=== PATIENT | male | born 1955 | race Caucasian/White ===

== ENCOUNTER → 2017-11-18 08:31 | Outpatient (CLI) | payer BC, SELFPAY | PROVIDERS: Family Provider Family Medicine; PCP Family Medicine; Visit Provider Family Medicine | DX: I25.10 Atherosclerotic heart disease of native coronary artery without angina pectoris (principal) | CPT/HCPCS: 93017 ==

== ENCOUNTER 2018-01-06 21:13 | Emergency (ER) | payer BC, SELFPAY ==
[2018-01-06 21:14] VITALS: BP 188/96; PULSE 85; RESP 20; TEMP 37.1; O2SAT 98; BMI 25.9
--- NOTE | 2018-01-06 21:26 | CT_ITS ---
CT abdomen pelvis wo con Ordering Physician: Jeovany Ventura MD Patient Age: 62 years: Male HISTORY: ITS.REASON: pain left lower quadrant pain 2 weeks. HISTORY of kidney stones. TECHNIQUE: Helical CT scans abdomen pelvis with no oral nor IV contrast utilized. COMPARISON :July 2017 & January 2014 FINDINGS Lung bases clear. Abdomen./Pelvis. Lack of oral and IV contrast decrease sensitivity Liver. Mild fatty changes.,. Spleen, pancreas satisfactory. Gallbladder. No calcified gallstones. No ductal dilatation Stable right adrenal nodule 16 mm. It measures -2 Hounsfield unit density. Others compatible with a benign impression adenoma Left obstructive uropathy. High-grade. Stranding about the left kidney complex the high-grade obstruction and pelvicalyceal backflow most likely. The Moderate/generous hydronephrosis is more pronounced than on July 2017 CT study, with dilatation of proximal left ureter down to the series of multiple prominent left ureter calculi. Also new calculi at the left renal pelvis region as well..-Note 7 mm calculus as well as a elongated 12 x 3 mm calculus at the left renal pelvis. Continuing inferiorly, the Dilated left ureter contains a series of calculi.-: The most superior measuring 7.3 mm. The next measuring 8.7 millimeters,. The third calculus measuring 7.1 mm. The largest calculus is the most inferior of this series a calculi. It is projected over the left sacrum measures just less than 9 mm AP x 6 mm Transverse. The the ureter distal this point is not as dilated. Left kidney contains numerous residual nonobstructive calculi within the calyces. The largest calculi complex measuring 16mm x 10 mm at the lower pole calyx. Numerous other calculi measuring up to 7-8 mm are seen elsewhere at left kidney. Right kidney also contains numerous punctate calculi of tend to be overall slightly smaller, measuring 4-MM up to 6 mm.. These appear similar to the previous study. No obstructive uropathy on the right. Pelvis: Bladder is unremarkable. Phlebolith left pelvic basin axial image 106. Moderate size prostate Large bowel. Moderate stool seen throughout colon with numerous diverticuli most evident at sigmoid colon. Appendix appears normal in size with some upper normal density centrally. IMPRESSION========= 1. High-grade obstructive uropathy on the left. Generous LEFT hydronephrosis & dilatation of proximal left ureter due to series of large left ureteral calcul ,. At least 4 large left ureteral calculi: these measure 7- 8mm size, with largest most inferior calculus measuring nearly 9 mm diameter. 2. Bilateral nephrolithiasis: LEFT KIDNEY with numerous calculi, including large stone complex lower pole measuring up to 16 mm maximally. Numerous punctate calculi also again seen at RIGHT KIDNEY. Which tend to be smaller on the right measuring 4-6 mm size. 3. Small right adrenal adenoma. Stable. 4. Diverticulosis of left colon and sigmoid colon. No diverticulitis.. Fatty infiltration liver
--- NOTE | 2018-01-06 22:02 | [facility].EDUROGM ---
ED Disposition Clinical Impression: Renal colic on left side Disposition: Home, Self-Care Condition on Discharge: Good Instructions: DI for Kidney Stones Additional Instructions: fluids and see pcp for follow up Referrals: Sukhdeep Ramon MD [Primary Care Provider] - - Critical Care Critical Care Time: No Attestation: On 01/06/18, the high probability of a clinically significant, sudden or life threatening deterioration of the following system(s) required my full and direct attention, intervention and personal management. The time I documented below is in addition to time spent performing reported procedures but includes the following listed in this critical care notation. Medical Decision Making - Medical Records Medical records reviewed: Yes: I reviewed the patient's medical records. Vital Signs: 01/06/18 21:14 01/06/18 22:11 Temperature 98.8 F Temperature Source Oral Pulse Rate [Right Brachial] 85 77 Respiratory Rate 20 12 Blood Pressure [Right Arm] 188/96 145/77 Blood Pressure Mean [Right Arm] 126 99 Blood Pressure Source [Right Arm] Automatic Cuff Automatic Cuff Blood Pressure Position [Right Arm] Sitting Sitting 02 Sat by Pulse Oximetry 98 96 Oxygen Delivery Method Room Air Room Air - Lab Data Lab results reviewed: Yes: I reviewed the patient's lab results. Orders (Tests/Meds): ED MEDICATIONS Discontinued Medications Generic Name Dose Route Start Last Admin Trade Name Freq PRN Reason Stop Dose Admin Sodium Chloride 1,000 mls @ 999 mls/hr 01/06/18 21:30 01/06/18 22:05 Sod Chlor 0.9% 1000ml Bag IV 01/06/18 22:30 999 mls/hr .Q1H1M GRACIELA Administration Ketorolac Tromethamine 30 mg 01/06/18 21:25 01/06/18 22:08 Toradol 30mg/Ml Vial IV 01/06/18 21:26 30 mg ONCE ONE Administration Morphine Sulfate 4 mg 01/06/18 22:02 01/06/18 22:05 Morphine 4mg/Ml Syringe IV 01/06/18 22:03 4 mg ONCE ONE Administration Ondansetron HCl 4 mg 01/06/18 21:25 01/06/18 22:10 Zofran 4mg/2ml Vial IV 01/06/18 21:26 4 mg ONCE ONE Administration ORDERS Category Date Time Status CT abdomen pelvis wo con Stat Cat Scan 01/06/18 21:26 Taken - CT Data CT Scan: Abdomen, Pelvis Time Received: 22:[address] Reviewed: Yes: I have viewed the radiologist's interpretation Preliminary Findings: Abnormal (lt renal stones ) - Cesar Inquiry Pt receiving controlled substance: No Male Urogenital HPI - General Chief complaint: Abdominal Pain Stated complaint: kidney stone Time Seen by Provider: 01/06/18 22:02 Mode of Arrival: Ambulatory Source of Information: Patient, Relative, Medical Record Limitations: No Limitations Description of Symptoms (Recalled from ER Triage Doc. by RN): Hx Kidney Stones, has been in pain for 2 weeks, worsening for the last 3 days - History of Present Illness HPI Narrative: pt with hx of kidney stones and presents with ongoing lt flank pain which has not responded to op rx MD Complaint: other (flank pain) Onset (ago): day(s) Duration: intermittent Location: left flank Severity: severe - Related Data Home Medications Medication Instructions Recorded Confirmed Aspirin [Aspirin 81mg EC Tab] 81 mg PO DAILY 01/06/18 01/06/18 Carvedilol [Carvedilol 3.125mg Tab] 3.125 mg PO BID 01/06/18 01/06/18 Clopidogrel Bisulfate [Plavix 75mg 75 mg PO DAILY 01/06/18 01/06/18 Tab] Lisinopril [Lisinopril 10mg Tab] 10 mg PO DAILY 01/06/18 01/06/18 Metformin HCl [Metformin 500mg 500 mg PO BID 01/06/18 01/06/18 Tablet] NIFEdipine [Nifedipine ER] 60 mg PO DAILY 01/06/18 01/06/18 Allergies Allergy/AdvReac Type Severity Reaction Status Date / Time Penicillins [PENICILLINS] Allergy Intermediate I-RASH Verified 01/06/18 22:04 [facility] History I have reviewed the patient's past medical history: Yes Laterality Cases: Right: Partial Knee Replacement - Social History Smoking Status: Current every day smoker Tobacco Type: cigarett
[2018-01-06 22:11] VITALS: BP 145/77; PULSE 77; RESP 12; O2SAT 96
[2018-01-06 22:58] LABS: Basophils % 0.3 % (0.1-2.0); Eosinophils # 0.1 K/mm3 (0.0-0.4); Eosinophils % 1.4 % (0.1-12.0); Hematocrit 44.3 % (42.0-52.0); Hemoglobin 14.4 g/dL (14.1-18.0); Lymphocytes # 0.7 K/mm3 (0.7-4.5); Lymphocytes % 8.5 K/mm3 (10-50); Mean Corpuscular HGB Conc 32.5 g/dL (31.8-35.4); Mean Corpuscular Hemoglobin 31.3 pg (27.0-31.2); Mean Corpuscular Volume 96.1 fl (80-94); Mean Platelet Volume 7.9 fl (7.4-10.4); Monocytes # 0.5 K/mm3 (0.1-1.0); Monocytes % 6.6 % (1.7-9.3); Neutrophils # 6.6 K/mm3 (1.8-7.8); Neutrophils % 83.3 % (37.0-80.0); Platelet Count 142 K/mm3 (142-424); Red Cell Distribution Width 12.7 % (11.5-17.5); White Blood Count 7.9 K/mm3 (4.8-10.8)
[2018-01-06 23:00] LABS: Alanine Aminotransferase 73 U/L (12-78); Albumin Level 3.6 gm/dL (3.4-5.0); Albumin/Globulin Ratio 1.2 (1.1-1.8); Alkaline Phosphatase 87 U/L (46-116); Anion Gap 13.1 mEq/L (5-15); Aspartate Amino Transferase 33 U/L (15-37); Bilirubin,Total 0.7 mg/dL (0.2-1.0); Blood Urea Nitrogen 41 mg/dL (7-18); Calcium 8.3 mg/dL (8.5-10.1); Carbon Dioxide 25 mmol/L (21.0-32.0); Chloride 105 mmol/L (98-107); Creatinine Clearance Estimated 30 mL/min (0-300); Creatinine,Serum 2.92 mg/dL (0.70-1.30); Estimated Glomerular Filt Rate 22 ml/min (>60); GFR (African American) 27 ML/MIN (>60); Globulin 3.1 gm/dl (1.3-3.2); Glucose 271 mg/dL (74-106); Potassium 4.1 mmoL/L (3.5-5.1); Sodium 139 mmol/L (136-145); Total Protein,Serum 6.7 gm/dL (6.4-8.2)
[2018-01-06 23:18] VITALS: BP 128/66; PULSE 78; RESP 12; TEMP 37.1; O2SAT 99
== END 2018-01-06 23:20 | disposition home or self-care (01) ==
PROVIDERS: Emergency Provider Emergency Medicine; Family Provider Family Medicine; PCP Family Medicine
DX: N13.2 Hydronephrosis with renal and ureteral calculous obstruction (principal); Z87.442 Personal history of urinary calculi; E11.9 Type 2 diabetes mellitus without complications; Z79.84 Long term (current) use of oral hypoglycemic drugs; I10 Essential (primary) hypertension; F17.210 Nicotine dependence, cigarettes, uncomplicated; Z88.0 Allergy status to penicillin; Z96.651 Presence of right artificial knee joint
CPT/HCPCS: 74176; 80053; 85025; 96365; 96374; 96375; 99283; J2405

== ENCOUNTER 2018-01-19 22:08 | Emergency (ER) | payer BC, SELFPAY ==
[2018-01-19 22:08] VITALS: BP 143/83; PULSE 78; RESP 20; TEMP 36.9; O2SAT 99; BMI 30.5
--- NOTE | 2018-01-19 22:14 | CT_ITS ---
CT abdomen pelvis wo con CLINICAL INDICATION: Left flank pain ITS.REASON: ABD PAIN ORDERING PHYSICIAN: Samantha Bowen MD PATIENT AGE: 62 years COMPARISON: 01/06/2018 TECHNIQUE: Axial images obtained with sagittal and coronal reformats. All CT scans at the facility use one or more dose reduction, viz: automated exposure control; ma/kV adjustment per patient size (including targeted exams where dose is matched to indication; i.e. head); or iterative reconstruction technique. PROCEDURE: Oral Contrast: None IV Contrast: None . FINDINGS: Lung bases are clear. No focal liver lesion. The gallbladder, spleen, adrenal glands, and pancreas have an unremarkable unenhanced ureters. There are multiple bilateral renal calculi. The largest cluster of stones is in the lower pole left measuring up to 10 mm. There is severe left hydronephrosis and hydroureter secondary to multiple stone fragments in the mid to distal left ureter. These are difficult to measure individually due to overlap measure up to 7 mm in transverse dimension. Together the multiple stone fragments measure up to 4 cm in length. The most inferior stone is approximately 6 cm proximal to the ureterovesical junction. The stones are somewhat more clustered along the distal aspect of the ureter compared to the previous study and has moved distally by approximately 2 cm compared to the previous study.. Multiple right renal calculi are once again noted. No intestinal obstruction or free air. There is sigmoid diverticulosis but no evidence of diverticulitis. IMPRESSION: 1. Severe left hydronephrosis and hydroureter secondary to multiple left ureteral stone/fragments ([place]) in the junction of the mid-distal left ureter. The stones have been distally by approximately 2 cm compared to the previous exam. The stones are more clustered distally with a total length of the stone fragments measuring approximately 4 cm. The hydronephrosis does not appear significantly change. There is moderate stranding in the left perinephric renal fat which is however somewhat worse. 2. Nonobstructing right renal calculi
[2018-01-19 22:43] LABS: Basophils % 0.4 % (0.1-2.0); Eosinophils # 0.2 K/mm3 (0.0-0.4); Eosinophils % 2.2 % (0.1-12.0); Hematocrit 42.4 % (42.0-52.0); Hemoglobin 14.3 g/dL (14.1-18.0); Lymphocytes # 0.8 K/mm3 (0.7-4.5); Lymphocytes % 8.4 K/mm3 (10-50); Mean Corpuscular HGB Conc 33.9 g/dL (31.8-35.4); Mean Corpuscular Hemoglobin 31.9 pg (27.0-31.2); Mean Corpuscular Volume 94.2 fl (80-94); Mean Platelet Volume 7.4 fl (7.4-10.4); Monocytes # 0.5 K/mm3 (0.1-1.0); Monocytes % 5.2 % (1.7-9.3); Neutrophils # 8.1 K/mm3 (1.8-7.8); Neutrophils % 83.8 % (37.0-80.0); Platelet Count 175 K/mm3 (142-424); Red Cell Distribution Width 12.7 % (11.5-17.5); White Blood Count 9.7 K/mm3 (4.8-10.8)
[2018-01-19 22:52] LABS: Alanine Aminotransferase 66 U/L (12-78); Albumin Level 3.7 gm/dL (3.4-5.0); Albumin/Globulin Ratio 1.1 (1.1-1.8); Alkaline Phosphatase 83 U/L (46-116); Amylase 94 U/L (25-125); Aspartate Amino Transferase 23 U/L (15-37); Bilirubin,Total 0.3 mg/dL (0.2-1.0); Blood Urea Nitrogen 33 mg/dL (7-18); Calcium 9.8 mg/dL (8.5-10.1); Carbon Dioxide 27 mmol/L (21.0-32.0); Chloride 106 mmol/L (98-107); Creatinine Clearance Estimated 45 mL/min (0-300); Creatinine,Serum 2.11 mg/dL (0.70-1.30); Estimated Glomerular Filt Rate 32 ml/min (>60); GFR (African American) 39 ML/MIN (>60); Globulin 3.4 gm/dl (1.3-3.2); Glucose 192 mg/dL (74-106); Lipase 332 u/L (73-393); Sodium 142 mmol/L (136-145); Total Protein,Serum 7.1 gm/dL (6.4-8.2)
[2018-01-19 23:35] LABS: Microscopic, Urine URINE MICROSCOPIC (MICROSCOPIC)
[2018-01-19 23:36] LABS: Appearance,Urine CLEAR (Clear); Bilirubin,Urine Negative (Negative); Blood, Urine TRACE-I (Negative); Color,Urine YELLOW (Yellow); Glucose,Urine (UA) 1+ (Negative); Ketones,Urine Negative (Negative); Leukocyte Esterase,Urine Negative (Negative); Nitrate,Urine Negative (Negative); Protein,Urine Negative (Negative); Specific Gravity, Urine 1.015 (1.005-1.030); Urobilinogen,Urine 0.2 EU/dl (0.2)
[2018-01-19 23:37] LABS: Squamous Epithelial Cell,Urine Occasional #/hpf (0-5)
--- NOTE | 2018-01-19 23:57 | [facility].EDUROGM ---
ED Disposition Clinical Impression: Hydronephrosis, Nephrolithiasis, Ureteric stone, Acute renal failure, Diabetes, Intractable pain Disposition: Xfer Short-Term Hosp Condition on Discharge: Fair Instructions: DI for Acute Abdomen Referrals: Sukhdeep Ramon MD [Primary Care Provider] - - Critical Care Critical Care Time: No Attestation: On 01/19/18, the high probability of a clinically significant, sudden or life threatening deterioration of the following system(s) required my full and direct attention, intervention and personal management. The time I documented below is in addition to time spent performing reported procedures but includes the following listed in this critical care notation. Medical Decision Making - Medical Records Medical records reviewed: Yes: I reviewed the patient's medical records. MR Comment: Reviewed old labs in comparison to today's labs. - Cesar Inquiry Pt receiving controlled substance: Yes Cesar was queried for this patient: No Risks and benefits of using a controlled substance: were discussed with pt by me Vital Signs: 01/19/18 22:08 01/20/18 00:18 Temperature 98.5 F 98.6 F Temperature Source Oral Oral Pulse Rate [Right Radial] 78 80 Respiratory Rate 20 20 Blood Pressure [Right Arm] 143/83 119/76 Blood Pressure Mean [Right Arm] 103 90 Blood Pressure Source [Right Arm] Automatic Cuff Blood Pressure Position [Right Arm] Sitting Sitting 02 Sat by Pulse Oximetry 99 92 L Oxygen Delivery Method Room Air - Lab Data Lab Results 01/19/18 22:10: WBC 9.7, RBC 4.50 L, Hgb 14.3, Hct 42.4, MCV 94.2 H, MCH 31.9 H, MCHC 33.9, RDW 12.7, Plt Count 175, MPV 7.4, Neut % (Auto) 83.8 H, Lymph % (Auto) 8.4 L, [place] % (Auto) 5.2, Eos % (Auto) 2.2, Baso % (Auto) 0.4, Neut # (Auto) 8.1 H, Lymph # (Auto) 0.8, [place] # (Auto) 0.5, Eos # (Auto) 0.2, Baso # (Auto) 0.0 01/19/18 22:10: Sodium 142, Potassium 4.0, Chloride 106, Carbon Dioxide 27, Anion Gap 13.0, BUN 33 H, Creatinine 2.11 H, Estimated Creat Clear 45, Estimated GFR 32 L, Est GFR ( Amer) 39 L, Glucose 192 H, Calcium 9.8, Total Bilirubin 0.3, AST 23, ALT 66, Alkaline Phosphatase 83, Total Protein 7.1, Albumin 3.7, Globulin 3.4 H, Albumin/Globulin Ratio 1.1, Amylase 94, Lipase 332 01/19/18 23:30: Urine Color Yellow, Urine Appearance Clear, Urine pH 7.0, Ur Specific [place] 1.015, Urine Protein Negative, Urine Glucose (UA) 1+, Urine Ketones Negative, Urine Blood Trace-i, Urine Nitrate Negative, Urine Bilirubin Negative, Urine Urobilinogen 0.2, Ur Leukocyte Esterase Negative, Urine RBC 5-10, Ur Squamous Epith Cells Occasional Result diagrams: 01/19/18 22:10 01/19/18 22:10 Orders (Tests/Meds): ED MEDICATIONS Generic Name Dose Route Start Last Admin Trade Name Freq PRN Reason Stop Dose Admin Sodium Chloride 1,000 mls @ 999 mls/hr 01/20/18 02:30 Sod Chlor 0.9% 1000ml Bag IV 01/20/18 03:30 .Q1H1M GRACIELA Discontinued Medications Generic Name Dose Route Start Last Admin Trade Name Freq PRN Reason Stop Dose Admin Sodium Chloride 1,000 mls @ 999 mls/hr 01/19/18 22:15 01/19/18 22:34 Sod Chlor 0.9% 1000ml Bag IV 01/19/18 23:15 999 mls/hr .Q1H1M GRACIELA Administration Ketorolac Tromethamine 30 mg 01/19/18 22:15 01/19/18 22:34 Toradol 30mg/Ml Vial IV 01/19/18 22:16 30 mg ONCE ONE Administration Morphine Sulfate 2 mg 01/19/18 22:34 01/19/18 22:34 Morphine 2mg/Ml Syringe IV 01/19/18 22:35 2 mg ONCE ONE Administration Morphine Sulfate 2 mg 01/19/18 23:50 01/19/18 23:51 Morphine 2mg/2ml Syringe IV 01/19/18 23:51 2 mg ONCE ONE Administration Morphine Sulfate 2 mg 01/20/18 00:41 01/20/18 00:41 Morphine 2mg/2ml Syringe IV 01/20/18 00:42 2 mg ONCE ONE Administration Morphine Sulfate 2 mg 01/20/18 02:20 01/20/18 02:21 Morphine 2mg/2ml Syringe IV 01/20/18 02:21 2 mg ONCE ONE Administration Ondansetron HCl 4 mg 01/19/18 22:15 01/19/18 22:34 Zofran 4mg/2ml Vial
--- NOTE | 2018-01-20 | ED_ITS ---
ED Disposition Clinical Impression: Hydronephrosis, Nephrolithiasis, Ureteric stone, Acute renal failure, Diabetes , Intractable pain Disposition: Xfer Short-Term Hosp Condition on Discharge: Fair Instructions: DI for Acute Abdomen Referrals: Sukhdeep Ramon MD [Primary Care Provider] - - Critical Care Critical Care Time: No Attestation: On 01/19/18, the high probability of a clinically significant, sudden or life threatening deterioration of the following system(s) required my full and direct attention, intervention and personal management. The time I documented below is in addition to time spent performing reported procedures but includes the following listed in this critical care notation. Medical Decision Making - Medical Records Medical records reviewed: Yes: I reviewed the patient's medical records. MR Comment: Reviewed old labs in comparison to today's labs. - Cesar Inquiry Pt receiving controlled substance: Yes Cesar was queried for this patient: No Risks and benefits of using a controlled substance: were discussed with pt by me Vital Signs: 01/19/18 22:08 01/20/18 00:18 Temperature 98.5 F 98.6 F Temperature Source Oral Oral Pulse Rate [Right Radial] 78 80 Respiratory Rate 20 20 Blood Pressure [Right Arm] 143/83 119/76 Blood Pressure Mean [Right Arm] 103 90 Blood Pressure Source [Right Arm] Automatic Cuff Blood Pressure Position [Right Arm] Sitting Sitting 02 Sat by Pulse Oximetry 99 92 L Oxygen Delivery Method Room Air - Lab Data Lab Results 01/19/18 22:10: WBC 9.7, RBC 4.50 L, Hgb 14.3, Hct 42.4, MCV 94.2 H, MCH 31.9 H , MCHC 33.9, RDW 12.7, Plt Count 175, MPV 7.4, Neut % (Auto) 83.8 H, Lymph % ( Auto) 8.4 L, [place] % (Auto) 5.2, Eos % (Auto) 2.2, Baso % (Auto) 0.4, Neut # ( Auto) 8.1 H, Lymph # (Auto) 0.8, [place] # (Auto) 0.5, Eos # (Auto) 0.2, Baso # ( Auto) 0.0 01/19/18 22:10: Sodium 142, Potassium 4.0, Chloride 106, Carbon Dioxide 27, Anion Gap 13.0, BUN 33 H, Creatinine 2.11 H, Estimated Creat Clear 45, Estimated GFR 32 L, Est GFR ( Amer) 39 L, Glucose 192 H, Calcium 9.8, Total Bilirubin 0.3, AST 23, ALT 66, Alkaline Phosphatase 83, Total Protein 7.1 , Albumin 3.7, Globulin 3.4 H, Albumin/Globulin Ratio 1.1, Amylase 94, Lipase 332 01/19/18 23:30: Urine Color Yellow, Urine Appearance Clear, Urine pH 7.0, Ur Specific [place] 1.015, Urine Protein Negative, Urine Glucose (UA) 1+, Urine Ketones Negative, Urine Blood Trace-i, Urine Nitrate Negative, Urine Bilirubin Negative, Urine Urobilinogen 0.2, Ur Leukocyte Esterase Negative, Urine RBC 5-10 , Ur Squamous Epith Cells Occasional Result diagrams: 01/19/18 22:10 01/19/18 22:10 Orders (Tests/Meds): ED MEDICATIONS Generic Name Dose Route Start Last Admin Trade Name Freq PRN Reason Stop Dose Admin Sodium Chloride 1,000 mls @ 999 mls/hr 01/20/18 02:30 Sod Chlor 0.9% 1000ml Bag IV 01/20/18 03:30 .Q1H1M GRACIELA Discontinued Medications Generic Name Dose Route Start Last Admin Trade Name Freq PRN Reason Stop Dose Admin Sodium Chloride 1,000 mls @ 999 mls/hr 01/19/18 22:15 01/19/18 22:34 Sod Chlor 0.9% 1000ml Bag IV 01/19/18 23:15 999 mls/hr .Q1H1M GRACIELA Administration Ketorolac Tromethamine 30 mg 01/19/18 22:15 01/19/18 22:34 Toradol 30mg/Ml Vial IV 01/19/18 22:16 30 mg ONCE ONE Administration Morphine Sulfate 2 mg 01/19/18
[2018-01-20 00:18] VITALS: BP 119/76; PULSE 80; RESP 20; TEMP 37; O2SAT 92
--- NOTE | 2018-01-20 01:11 | PC.NURSE ---
PT PENDING BED PLACEMENT AT [facility]. PT AND FAMILY UPDATED ON PLAN OF CARE. WILL MONITOR FOR CHANGE AND PAIN CONTROL.
--- NOTE | 2018-01-20 02:03 | PC.NURSE ---
[facility] called at this time for bed update. they stated we are getting some beds cleaned, we are not exactly sure when we will have a bed available but we just wanted to update you. we will call when the bed is available. pt and family updated on transfer status. no needs identified.
[2018-01-20 03:28] VITALS: BP 177/81; PULSE 85; RESP 20; TEMP 36.8; O2SAT 99
== END 2018-01-20 04:02 | disposition short-term general hospital (02) ==
PROVIDERS: Emergency Provider Emergency Medicine; Family Provider Family Medicine; PCP Family Medicine
DX: N13.30 Unspecified hydronephrosis (principal); N13.2 Hydronephrosis with renal and ureteral calculous obstruction; Z87.442 Personal history of urinary calculi; E11.9 Type 2 diabetes mellitus without complications; Z79.84 Long term (current) use of oral hypoglycemic drugs; Z79.82 Long term (current) use of aspirin; I10 Essential (primary) hypertension; N17.9 Acute kidney failure, unspecified
CPT/HCPCS: 74176; 80053; 81001; 82150; 83690; 85025; 96365; 96375; 96376; 99284; J2405

== ENCOUNTER 2018-03-05 21:45 | Inpatient (IN) ==
--- NOTE | 2018-03-05 22:11 | Emergency Department Note ---
ED Disposition Clinical Impression: Pneumothorax on left Ribs, multiple fractures Qualifiers: Encounter type: initial encounter Fracture type: closed Laterality: left Qualified Code(s): S22.42XA - Multiple fractures of ribs, left side, initial encounter for closed fracture Contusion of head Qualifiers: Encounter type: initial encounter Contusion of head detail: unspecified part of head Qualified Code(s): S00.93XA - Contusion of unspecified part of head, initial encounter Cervical strain, acute Qualifiers: Encounter type: initial encounter Qualified Code(s): S16.1XXA - Strain of muscle, fascia and tendon at neck level, initial encounter Left wrist sprain Qualifiers: Encounter type: initial encounter Qualified Code(s): S63.502A - Unspecified sprain of left wrist, initial encounter Contusion, abdominal wall Qualifiers: Encounter type: initial encounter Qualified Code(s): S30.1XXA - Contusion of abdominal wall, initial encounter Disposition: Admitted as Observation Condition on Discharge: Good Referrals: Sukhdeep Ramon MD [Primary Care Provider] - - Critical Care Critical Care Time: No Attestation: On 03/05/18, the high probability of a clinically significant, sudden or life threatening deterioration of the following system(s) required my full and direct attention, intervention and personal management. The time I documented below is in addition to time spent performing reported procedures but includes the following listed in this critical care notation. Medical Decision Making - Medical Records Medical records reviewed: Yes: I reviewed the patient's medical records. - Cesar Inquiry Pt receiving controlled substance: No Vital Signs: 03/05/18 21:46 03/05/18 23:42 03/05/18 23:55 Temperature 98.0 F Temperature Source Oral Pulse Rate [Right Brachial] 107 H 98 H 88 Respiratory Rate 18 16 16 Blood Pressure [Right Arm] 193/108 144/69 144/83 Blood Pressure Mean [Right Arm] 136 94 103 Blood Pressure Source [Right Arm] Automatic Cuff Automatic Cuff Automatic Cuff Blood Pressure Position [Right Arm] Sitting Sitting Sitting 02 Sat by Pulse Oximetry 98 97 97 Oxygen Delivery Method Room Air Room Air Room Air - Lab Data Lab results reviewed: Yes: I reviewed the patient's lab results. Lab Results 03/05/18 22:00: WBC 11.8 H, RBC 4.67, Hgb 14.8, Hct 44.5, MCV 95.2 H, MCH 31.8 H , MCHC 33.4, RDW 12.9, Plt Count 176, MPV 7.4, Neut % (Auto) 87.8 H, Lymph % ( Auto) 6.8 L, H[place] % (Auto) 4.6, Eos % (Auto) 0.5, Baso % (Auto) 0.3, Neut # ( Auto) 10.3 H, Lymph # (Auto) 0.8, Hays # (Auto) 0.5, Eos # (Auto) 0.1, Baso # ( Auto) 0.0, Total Counted 100, Neutrophils % (Manual) 84 H, Band Neutrophils % 9.0 H, Lymphocytes % (Manual) 7 L, Platelet Estimate Normal, RBC Morphology Normal 03/05/18 22:00: Sodium 140, Potassium 4.0, Chloride 105, Carbon Dioxide 25, Anion Gap 14.0, BUN 33 H, Creatinine 1.52 H, Estimated Creat Clear 61, Estimated GFR 47 L, Est GFR ( Amer) 57 L, Glucose 272 H Result diagrams: 03/05/18 22:00 03/05/18 22:00 Orders (Tests/Meds): ED MEDICATIONS Discontinued Medications Generic Name Dose Route Start Last Admin Trade Name Freq PRN Reason Stop Dose Admin Sodium Chloride 1,000 mls @ 999 mls/hr 03/05/18 22:00 03/05/18 22:04 Sod Chlor 0.9% 1000ml Bag IV 03/05/18 23:00 999 mls/hr .Q1H1M GRACIELA Administration Morphine Sulfate 4 mg 03/05/18 22:00 03/05/18 22:04 Morphine 4mg/Ml Syringe IV 03/05/18 22:01 4 mg ONCE ONE Administration Morphine Sulfate 4 mg 03/05/18 22:17 03/05/18 23:13 Morphine 2mg/2ml Syringe IV 03/05/18 22:18 4 mg ONCE ONE Administration Morphine Sulfate 4 mg 03/05/18 23:38 03/05/18 23:40 Morphine 4mg/Ml Syringe IV 03/05/18 23:39 4 mg ONCE ONE Administration Ondansetron HCl 4 mg 03/05/18 22:00 03/05/18 22:04 Zofran 4mg/2ml Vial IV 03/05/18 22:01 4 mg ONCE ONE Administration ORDERS Category Date Time Status CT abdomen pelvis w con Stat Cat Scan 03/05/18 22:[address] angio chest Stat Cat Scan 03/05/18 22:[address] cervical spine wo con Stat Cat Scan 03/05/18 21:[address] facial bones wo con Stat Cat Scan 03/05/18 22:[address] head/brain wo con Stat Cat Scan 03/05/18 21:53 Taken XR clavicle LT Stat Exams 03/05/18 21:53 Taken XR pelvis 1-2V Stat Exams 03/05/18 21:53 Taken XR ribs LT min 3V w CXR1V Stat Exams 03/05/18 21:53 Taken XR shoulder LT min 2V Stat Exams 03/05/18 21:53 Taken XR wrist LT min 3V Stat Exams 03/05/18 21:53 Taken Urinalysis-Acute [Urinalysis and Microscopic] Stat Lab 03/05/18 21:55 Ordered - Radiology Data #1 Image(s): Chest, Shoulder, Clavicle, Wrist, Pelvis Image Reviewed: Yes I reviewed the patient's radiology image Preliminary Findings: Abnormal (rib fx seen) - CT Data CT Scan: Head, C-Spine, Abdomen, Pelvis, Chest, Sinus Time Received: 00:[address] Reviewed: Yes: I have viewed the radiologist's interpretation Preliminary Findings: Abnormal (rib fx ) - Physician Consults Physician Consulted: lisa Reason -: Admission Trauma Alert The Trauma Alert Section documentation for [id number] ParryGordy Marck was populated with data that defaulted in from the town marshal in the Trauma Alert Triage Assessment on _Reg Service Date] to provide within this report, the status of the patient on arrival to the ED during the Trauma Alert. - Arrival Mode of Arrival: Ambulatory Source Comment: patient Description of Symptoms (Recalled from ER Triage Doc. by RN): was riding his horse, and the horse rared back and threw him off the side of the horse. Reports pain in the left side of his chest/back area. Left clavicle pain. Pain on the inside of thighs from the saddle. Reports the horse hit him in the face and reports pain in the left side of cheek, under his left eye. - Pre-Hospital Care Pre-Hospital Care Given: No - Height/Weight/BMI Height: 5 ft 8 in Weight: 189 lb Weight Measurement Method: Standing Scale Body Mass Index: 28.7 - Immunization Status Hx Immunizations Up to Date: Yes Trauma HPI - General Chief Complaint: Fall Stated Complaint: fall Time Seen by Provider: 03/05/18 21:50 Mode of Arrival: Ambulatory Limitations: No Limitations Description of Symptoms (Recalled from ER Triage Doc. by RN): was riding his horse, and the horse rared back and threw him off the side of the horse. Reports pain in the left side of his chest/back area. Left clavicle pain. Pain on the inside of thighs from the saddle. Reports the horse hit him in the face and reports pain in the left side of cheek, under his left eye. - History of Present Illness HPI narrative: acute injury tonight with fall off horse with multiple injuries MD complaint: fall Onset (ago): hour(s) Loss of Consciousness: no Location: head, face, chest, abdomen, pelvis Location - Extremities: Left: wrist Severity: moderate Context: fall - Related Data Home Medications Medication Instructions Recorded Confirmed Aspirin [Aspirin 81mg EC Tab] 81 mg PO DAILY 01/06/18 03/05/18 Carvedilol [Carvedilol 3.125mg Tab] 3.125 mg PO BID 01/06/18 03/05/18 Clopidogrel Bisulfate [Plavix 75mg 75 mg PO DAILY 01/06/18 03/05/18 Tab] Lisinopril [Lisinopril 10mg Tab] 10 mg PO DAILY 01/06/18 03/05/18 Metformin HCl [Metformin 500mg 500 mg PO BID 01/06/18 03/05/18 Tablet] NIFEdipine [Nifedipine ER] 60 mg PO DAILY 01/06/18 03/05/18 Allergies Allergy/AdvReac Type Severity Reaction Status Date / Time Penicillins [PENICILLINS] Allergy Intermediate I-RASH Verified 01/06/18 22:04 [facility] History I have reviewed the patient's past medical history: Yes Medical History: Reports:: Diabetes Mellitus Type 2 Denies:: Cancer, MRSA Amputation: Yes (RIGHT INDEX FINGER) Fractures: No - Social History Smoking Status: Current every day smoker Tobacco Type: cigarettes Alcohol Intake: never - Psychiatric History Expresses thoughts of harming self/others: None Suicide Plan Description: No Plan ROS Obtained: Yes All systems reviewed & no additional complaints - Constitutional Constitutional: Denies fever(s) - Eyes Eyes: Denies change in vision - ENT Ears, Nose, Mouth, and Throat: Denies sore throat - Cardiovascular Cardiovascular: Reports as per HPI, Reports chest pain, Reports dyspnea - Respiratory Respiratory: No chest congestion, No cough - Gastrointestinal Gastrointestingal: Reports: as per HPI. Denies: abdominal pain - Genitourinary Male Genitourinary: Denies hematuria - Musculoskeletal Musculoskeletal: Reports joint pain, Reports joint swelling, Reports limited range of motion - Integumentary/Breasts Skin/Breast: Denies rash - Neurologic Neurologic: Denies seizure-like activity Physical Exam - General General appearance: alert, in no apparent distress - Head Head exam: normocephalic - Eye Eye exam: Present: PERRL, EOMI - ENT ENT exam: Present: other (tender lt face with no nasal or ear d/c ) - Neck Neck exam: Present: trachea midline, tenderness - Chest Chest inspection: Present: tenderness, other (no sq air) - Respiratory Respiratory exam: Present: normal lung sounds bilaterally. Absent: respiratory distress - Cardiovascular Cardiovascular exam: Present: regular rate, systolic murmur - Abdominal Exam Abdominal exam: Present: soft, tenderness. Absent: guarding, rebound - Extremities Exam Extremities exam: Present: tenderness - Expanded Upper Extremity Exam Left Forearm/Wrist exam: Present: tenderness, swelling - Expanded Lower Extremity Exam Left Hip/Pelvis exam: Present: pelvis stable Gait: not tested/not observed - Neurological Exam Neurological exam: Present: alert, oriented X3, CN II-XII intact - Psychiatric Psychiatric exam: Present: normal affect - Skin Skin exam: Present: other (abrasions)
[2018-03-05 22:15] LABS: Basophils % 0.3 % (0.1-2.0); Eosinophils # 0.1 K/mm3 (0.0-0.4); Eosinophils % 0.5 % (0.1-12.0); Hematocrit 44.5 % (42.0-52.0); Hemoglobin 14.8 g/dL (14.1-18.0); Lymphocytes # 0.8 K/mm3 (0.7-4.5); Lymphocytes % 6.8 K/mm3 (10-50); Mean Corpuscular HGB Conc 33.4 g/dL (31.8-35.4); Mean Corpuscular Hemoglobin 31.8 pg (27.0-31.2); Mean Corpuscular Volume 95.2 fl (80-94); Mean Platelet Volume 7.4 fl (7.4-10.4); Monocytes # 0.5 K/mm3 (0.1-1.0); Monocytes % 4.6 % (1.7-9.3); Neutrophils # 10.3 K/mm3 (1.8-7.8); Neutrophils % 87.8 % (37.0-80.0); Platelet Count 176 K/mm3 (142-424); Red Blood Count 4.67 M/mm3 (4.60-6.20); Red Cell Distribution Width 12.9 % (11.5-17.5); White Blood Count 11.8 K/mm3 (4.8-10.8)
[2018-03-05 22:32] LABS: Lymphocytes % 7 % (10-50); Neutrophils % 84 % (42-76); Total Cells Counted 100
[2018-03-05 22:33] LABS: RBC Morphology Normal
[2018-03-06 07:06] LABS: Eosinophils # 0.1 K/mm3 (0.0-0.4); Lymphocytes # 1.1 K/mm3 (0.7-4.5); Mean Corpuscular HGB Conc 32.6 g/dL (31.8-35.4); Neutrophils # 4.5 K/mm3 (1.8-7.8); White Blood Count 6.2 K/mm3 (4.8-10.8)
[2018-03-06 07:12] LABS: Anion Gap 10.3 mEq/L (5-15); Potassium 4.3 mmoL/L (3.5-5.1)
[2018-03-06 07:19] LABS: Basophils % 0.5 % (0.1-2.0); Eosinophils % 1.6 % (0.1-12.0); Hematocrit 39.7 % (42.0-52.0); Lymphocytes % 18.3 K/mm3 (10-50); Mean Corpuscular Hemoglobin 31.5 pg (27.0-31.2); Mean Corpuscular Volume 96.6 fl (80-94); Mean Platelet Volume 7.6 fl (7.4-10.4); Monocytes # 0.5 K/mm3 (0.1-1.0); Monocytes % 7.4 % (1.7-9.3); Neutrophils % 72.2 % (37.0-80.0); Platelet Count 144 K/mm3 (142-424); Red Blood Count 4.11 M/mm3 (4.60-6.20); Red Cell Distribution Width 13.2 % (11.5-17.5)
--- NOTE | 2018-03-06 07:22 | Pharmacy Consult Notes ---
[facility] Pharmacy VTE Monitoring - Patient Demographics Admission date: 03/06/18 Report Date: 03/06/18 Time: 07:21 Allergies/Adverse Reactions: Patient Allergies Penicillins [PENICILLINS] Allergy (Intermediate, Verified 01/06/18 22:04) I-RASH Height: 1.73 m Weight: 83.263 kg Patient Problems: Current Active Problems Ribs, multiple fractures (Acute) Contusion of head (Acute) Cervical strain, acute (Acute) Left wrist sprain (Acute) Contusion, abdominal wall (Acute) Pneumothorax on left (Acute) - VTE Risk Labs: VTE Related Lab Results Hgb 14.8 g/dL (14.1-18.0) 03/05/18 22:00 Hct 44.5 % (42.0-52.0) 03/05/18 22:00 Plt Count 176 K/mm3 (142-424) 03/05/18 22:00 BUN 28 mg/dL (7-18) H 03/06/18 06:40 Creatinine 1.30 mg/dL (0.70-1.30) 03/06/18 06:40 Estimated Creat Clear 69 mL/min (0-300) 03/06/18 06:40 VTE Risk Level: Low Risk - Prophylaxis VTE Prophylaxis Ordered?: Yes Types of VTE Prophylaxis: TEDS Knee High Location of Applied Device: Bilateral Lower Extremeties - VTE Diagnosis Confirmed Treatment or plan recommended: Continue Current Treatment
[2018-03-06 07:47] VITALS: BP 123/67
[2018-03-06 08:27] LABS: Hemoglobin 12.9 g/dL (14.1-18.0)
--- NOTE | 2018-03-06 09:32 | History & Physical Report ---
*Admission Date: 03/06/18 <DarnellGabriela early 03/06/18 09:32> *Chief complaint: left chest wall discomdort <Gabriela Darnell 03/06/18 09:32> *History of present illness: Mr Parry was riding his horse, and the horse rared back and threw him off the side of the horse. He reported pain in the left side of his chest/back area as well as Left clavicle pain and Pain on the inside of thighs from the saddle. He reported the horse hit him in the face resulting in pain in the left side of cheek, under his left eye. Chest x-ray completed in the emergency room revealed fractures of ribs on the left and a small pneumothorax. Repeat chest x-ray this morning showed no pneumothorax. Patient's pain is mostly in the left side of his chest wall. He has some shortness of breath due the fact that he cannot take a deep breath. Pain is controlled with p.o. medicine. He denies nausea. Patient requests a mild laxative. <CarieGabriela 03/06/18 09:46> [facility] History Medical History: Reports:: Atherosclerotic Heart Disease, Coronary Artery Disease, Diabetes Mellitus Type 2, Hypertension, Kidney Stones Denies:: Cancer, Cerebrovascular Accident, Dementia, Diabetes Mellitus Type 1 , Gastroesophageal Reflux Disease(GERD), MRSA, Seizures <Gabriela Darnell 03/06 09:46> Other Medical History: Reports: Arthritis, Sinus Problems <Gabriela Darnell 05/17 09:32> Other Surgeries: Yes: Cardiac Catheterization <Gabriela Darnell 03/06/18 09:32> Amputation: Yes (RIGHT INDEX FINGER) <Gabriela Darnell 03/06/18 09:32> Fractures: No <Gabriela Darnell 03/06/18 09:32> Comment: Several lithotripsies; stent placements. <Gabriela Darnell 03/06/18 09 :46> - *Social History Educational Level: Completed College <Gabriela Darnell 03/06/18 09:32> Smoking Status: Current some day smoker <Gabriela Darnell 03/06/18 09:32> Tobacco Type: cigarettes <Gabriela Darnell 03/06/18 09:32> Alcohol Intake: never <Gabriela Darnell 03/06/18 09:32> Occupational Status: employed <Gabriela Darnell 03/06/18 09:32> Housing: house <Gabriela Darnell 03/06/18 09:32> Household Members: none <Gabriela Darnell 03/06/18 09:32> - Psychiatric History Expresses thoughts of harming self/others: None <Gabriela Darnell 03/06/18 09: 32> Suicide Plan Description: No Plan <aGbriela Darnell 03/06/18 09:32> *Family Hx:: Cancer, Coronary Artery Disease, Diabetes, Heart Attack, Hypertension <Gabriela Darnell 03/06/18 09:32> Review of Systems - Constitutional Denies fever(s), Denies headache(s) <Gabriela Darnell 03/06/18 09:46> - Eyes Denies change in vision <CarieGabriela 03/06/18 09:46> - ENT Denies sore throat <CarieGabriela 03/06/18 09:46> - *Cardiovascular Reports chest pain, Reports shortness of breath <Gabriela Darnell 03/06/18 09: 46> - *Respiratory Denies chest congestion, Denies cough <Gabriela Darnell 03/06/18 09:46> - *Gastrointestinal Denies abdominal pain, Denies change in bowel habits, Denies constipation, Denies heartburn, Denies vomiting blood, Denies nausea, Denies vomiting < DarnellGabriela 03/06/18 09:46> - *Genitourinary Denies difficulty urinating <DarnellGabriela 03/06/18 09:46> - *Musculoskeletal Reports joint pain <Gabriela Darnell 03/06/18 09:46> - *Neurologic Denies confusion, Denies seizure-like activity <Gabriela Darnell 03/06/18 09:46 > Meds Home Medications Medication Instructions Recorded Confirmed Type Aspirin [Aspirin 81mg EC Tab] 81 mg PO DAILY 01/06/18 03/05/18 History Carvedilol [Carvedilol 3.125mg Tab] 3.125 mg PO BID 01/06/18 03/06/18 History Clopidogrel Bisulfate [Plavix 75mg 75 mg PO DAILY 01/06/18 03/06/18 History Tab] Lisinopril [Lisinopril 10mg Tab] 10 mg PO DAILY 01/06/18 03/06/18 History Metformin HCl [Metformin 500mg 500 mg PO BID 01/06/18 03/06/18 History Tablet] NIFEdipine [Nifedipine ER] 60 mg PO DAILY 01/06/18 03/06/18 History <Sukhdeep Ramon - 03/06/18 09:57> Allergies Allergy/AdvReac Type Severity Reaction Status Date / Time Penicillins [PENICILLINS] Allergy Intermediate I-RASH Verified 01/06/18 22:04 <Sukhdeep Ramon - 03/06/18 09:57> Exam Vital signs and Labs for Last 24 Hours: Temp Pulse Resp BP Pulse Ox 98.2 F 72 20 123/67 99 03/06/18 07:46 03/06/18 07:46 03/06/18 07:46 03/06/18 07:46 03/06/18 07:46 Laboratory Results - last 24 hr 03/05/18 22:00: WBC 11.8 H, RBC 4.67, Hgb 14.8, Hct 44.5, MCV 95.2 H, MCH 31.8 H , MCHC 33.4, RDW 12.9, Plt Count 176, MPV 7.4, Neut % (Auto) 87.8 H, Lymph % ( Auto) 6.8 L, [place] % (Auto) 4.6, Eos % (Auto) 0.5, Baso % (Auto) 0.3, Neut # ( Auto) 10.3 H, Lymph # (Auto) 0.8, [place] # (Auto) 0.5, Eos # (Auto) 0.1, Baso # ( Auto) 0.0, Total Counted 100, Neutrophils % (Manual) 84 H, Band Neutrophils % 9.0 H, Lymphocytes % (Manual) 7 L, Platelet Estimate Normal, RBC Morphology Normal 03/05/18 22:00: Sodium 140, Potassium 4.0, Chloride 105, Carbon Dioxide 25, Anion Gap 14.0, BUN 33 H, Creatinine 1.52 H, Estimated Creat Clear 61, Estimated GFR 47 L, Est GFR ( Amer) 57 L, Glucose 272 H 03/06/18 06:36: POC Glucose 189 H 03/06/18 06:40: WBC 6.2 D, RBC 4.11 L, Hgb 12.9 L D, Hct 39.7 L, MCV 96.6 H, MCH 31.5 H, MCHC 32.6, RDW 13.2, Plt Count 144, MPV 7.6, Neut % (Auto) 72.2, Lymph % (Auto) 18.3, [place] % (Auto) 7.4, Eos % (Auto) 1.6, Baso % (Auto) 0.5, Neut # (Auto) 4.5, Lymph # (Auto) 1.1, [place] # (Auto) 0.5, Eos # (Auto) 0.1, Baso # (Auto) 0.0 03/06/18 06:40: Sodium 144, Potassium 4.3, Chloride 110 H, Carbon Dioxide 28, Anion Gap 10.3, BUN 28 H, Creatinine 1.30, Estimated Creat Clear 69, Estimated GFR 56 L, Est GFR ( Amer) 68, Glucose 194 H D <Sukhdeep Ramon - 03/06/18 09:57> Temp Pulse Resp BP Pulse Ox 98.2 F 72 20 123/67 99 03/06/18 07:46 03/06/18 07:46 03/06/18 07:46 03/06/18 07:46 03/06/18 07:46 Laboratory Results - last 24 hr 03/05/18 22:00: WBC 11.8 H, RBC 4.67, Hgb 14.8, Hct 44.5, MCV 95.2 H, MCH 31.8 H , MCHC 33.4, RDW 12.9, Plt Count 176, MPV 7.4, Neut % (Auto) 87.8 H, Lymph % ( Auto) 6.8 L, [place] % (Auto) 4.6, Eos % (Auto) 0.5, Baso % (Auto) 0.3, Neut # ( Auto) 10.3 H, Lymph # (Auto) 0.8, [place] # (Auto) 0.5, Eos # (Auto) 0.1, Baso # ( Auto) 0.0, Total Counted 100, Neutrophils % (Manual) 84 H, Band Neutrophils % 9.0 H, Lymphocytes % (Manual) 7 L, Platelet Estimate Normal, RBC Morphology Normal 03/05/18 22:00: Sodium 140, Potassium 4.0, Chloride 105, Carbon Dioxide 25, Anion Gap 14.0, BUN 33 H, Creatinine 1.52 H, Estimated Creat Clear 61, Estimated GFR 47 L, Est GFR ( Amer) 57 L, Glucose 272 H 03/06/18 06:36: POC Glucose 189 H 03/06/18 06:40: WBC 6.2 D, RBC 4.11 L, Hgb 12.9 L D, Hct 39.7 L, MCV 96.6 H, MCH 31.5 H, MCHC 32.6, RDW 13.2, Plt Count 144, MPV 7.6, Neut % (Auto) 72.2, Lymph % (Auto) 18.3, [place] % (Auto) 7.4, Eos % (Auto) 1.6, Baso % (Auto) 0.5, Neut # (Auto) 4.5, Lymph # (Auto) 1.1, [place] # (Auto) 0.5, Eos # (Auto) 0.1, Baso # (Auto) 0.0 03/06/18 06:40: Sodium 144, Potassium 4.3, Chloride 110 H, Carbon Dioxide 28, Anion Gap 10.3, BUN 28 H, Creatinine 1.30, Estimated Creat Clear 69, Estimated GFR 56 L, Est GFR ( Amer) 68, Glucose 194 H D <Gabriela Darnell - 03/06/18 09:32> I & O for Last 24 hours: Intake & Output 03/03/18 03/04/18 03/05/18 03/06/18 11:59 11:59 11:59 11:59 Intake Total 1000 / 1000 Balance 1000 / 1000 Weight 183 lb 9 oz <Sukhdeep Ramon - 03/06/18 09:57> Intake & Output 03/03/18 03/04/18 03/05/18 03/06/18 11:59 11:59 11:59 11:59 Intake Total 1000 / 1000 Balance 1000 / 1000 Weight 183 lb 9 oz <Gabriela Darnell - 03/06/18 09:32> Radiology Reports for the Last 24 Hours: 03/06/18 repeat CXR IMPRESSION: Left sixth and seventh rib fractures with increasing left basilar atelectasis and no appreciable pneumothorax by plain film <Gabriela Darnell - 03/06/18 09:32> - Constitutional no acute distress [facility] 03/[facility] 09:46> - *Routine HEENT Exam Head: Present: normocephalic, atraumatic <[facility] 03/06/18 09:46> Eye: Present: PERRL <[facility] 03/06/18 09:46> ENT: Present: mucous membranes moist, oropharynx clear, dentition normal, nares patent [facility] 09[facility]46> - *Routine Neck Exam Present: supple. Absent: carotid bruit, lymphadenopathy, thyromegaly, tenderness [facility] 03/06/18 09:46> - *Routine Respiratory Exam Present: decreased breath sounds (In bases hurts to take a deep breath.), CTA bilaterally [facility] 03/06/18 09:46> - *Routine Cardiovascular Exam Present: RRR [facility] 03/06/18 09:46> - *Routine Abdominal Exam Present: soft, normoactive bowel sounds. Absent: tenderness, distended < [facility] 03/06/18 09:46> - *Routine Extremities Exam Present: full ROM, pulses intact. Absent: edema, calf tenderness <Carie [facility] 03/06/18 09:46> - *Routine Neurological Exam Present: alert, oriented X3 [facility] 03/06/18 09:46> H&P: Result - Labs Labs: Short CBC 03/05/18 03/06/18 Range/Units 22:00 06:40 WBC 11.8 H 6.2 D (4.8-10.8) K/mm3 Hgb 14.8 12.9 L D (14.1-18.0) g/dL Hct 44.5 39.7 L (42.0-52.0) % Plt Count 176 144 (142-424) K/mm3 [facility] 03/05/18 03/06/18 22:00 06:40 Sodium 140 144 Potassium 4.0 4.3 Chloride 105 110 H Carbon Dioxide 25 28 BUN 33 H 28 H Creatinine 1.52 H 1.30 Glucose 272 H 194 H D <Sukhdeep Ramon - 03/06/18 09:57> Short CBC 03/05/18 03/06/18 Range/Units 22:00 06:40 WBC 11.8 H 6.2 D (4.8-10.8) K/mm3 Hgb 14.8 12.9 L D (14.1-18.0) g/dL Hct 44.5 39.7 L (42.0-52.0) % Plt Count 176 144 (142-424) K/mm3 BMP 03/05/18 03/06/18 22:00 06:40 Sodium 140 144 Potassium 4.0 4.3 Chloride 105 110 H Carbon Dioxide 25 28 BUN 33 H 28 H Creatinine 1.52 H 1.30 Glucose 272 H 194 H D <Gabriela Darnell - 03/06/18 09:32> Assessment and Plan (1) Cervical strain, acute Current visit: Yes Status: Acute Qualifiers: Encounter type: initial encounter Qualified Code(s): S16.1XXA - Strain of muscle, fascia and tendon at neck level, initial encounter Category: Medical Code(s): S16.1XXA - Strain of muscle, fascia and tendon at neck level, initial encounter (2) Contusion of head Current visit: Yes Status: Acute Qualifiers: Encounter type: initial encounter Contusion of head detail: unspecified part of head Qualified Code(s): S00.93XA - Contusion of unspecified part of head, initial encounter Category: Medical Code(s): S00.93XA - Contusion of unspecified part of head, initial encounter (3) Contusion, abdominal wall Current visit: Yes Status: Acute Qualifiers: Encounter type: initial encounter Qualified Code(s): S30.1XXA - Contusion of abdominal wall, initial encounter Category: Medical Code(s): S30.1XXA - Contusion of abdominal wall, initial encounter (4) Left wrist sprain Current visit: Yes Status: Acute Qualifiers: Encounter type: initial encounter Qualified Code(s): S63.502A - Unspecified sprain of left wrist, initial encounter Category: Medical Code(s): S63.502A - Unspecified sprain of left wrist, initial encounter (5) Pneumothorax on left Current visit: Yes Status: Acute Category: Medical Code(s): J93.9 - Pneumothorax, unspecified (6) Ribs, multiple fractures Current visit: Yes Status: Acute Qualifiers: Encounter type: initial encounter Fracture type: closed Laterality: left Qualified Code(s): S22.42XA - Multiple fractures of ribs, left side, initial encounter for closed fracture Category: Medical Code(s): S22.49XA - Multiple fractures of ribs, unspecified side, initial encounter for closed fracture (7) Diabetes Current visit: No Status: Acute Category: Medical Code(s): E11.9 - Type 2 diabetes mellitus without complications <Etta Ramonian - 03/06/18 09:57> (1) Cervical strain, acute Current visit: Yes Status: Acute Qualifiers: Encounter type: initial encounter Qualified Code(s): S16.1XXA - Strain of muscle, fascia and tendon at neck level, initial encounter Category: Medical Code(s): S16.1XXA - Strain of muscle, fascia and tendon at neck level, initial encounter (2) Contusion of head Current visit: Yes Status: Acute Qualifiers: Encounter type: initial encounter Contusion of head detail: unspecified part of head Qualified Code(s): S00.93XA - Contusion of unspecified part of head, initial encounter Category: Medical Code(s): S00.93XA - Contusion of unspecified part of head, initial encounter (3) Contusion, abdominal wall Current visit: Yes Status: Acute Qualifiers: Encounter type: initial encounter Qualified Code(s): S30.1XXA - Contusion of abdominal wall, initial encounter Category: Medical Code(s): S30.1XXA - Contusion of abdominal wall, initial encounter (4) Left wrist sprain Current visit: Yes Status: Acute Qualifiers: Encounter type: initial encounter Qualified Code(s): S63.502A - Unspecified sprain of left wrist, initial encounter Category: Medical Code(s): S63.502A - Unspecified sprain of left wrist, initial encounter (5) Pneumothorax on left Current visit: Yes Status: Acute Category: Medical Code(s): J93.9 - Pneumothorax, unspecified (6) Ribs, multiple fractures Current visit: Yes Status: Acute Qualifiers: Encounter type: initial encounter Fracture type: closed Laterality: left Qualified Code(s): S22.42XA - Multiple fractures of ribs, left side, initial encounter for closed fracture Category: Medical Code(s): S22.49XA - Multiple fractures of ribs, unspecified side, initial encounter for closed fracture (7) Diabetes Current visit: No Status: Acute Category: Medical Code(s): E11.9 - Type 2 diabetes mellitus without complications <Gabriela Darnell - 03/06/18 09:32> - Assessment and plan all Dx Assessment and Plan for all problems:: Saw patient, agree with above note. <Sukhdeep Ramon - 03/06/18 09:57> Renal function has improved and will restart metformin at his request. We will add gentle laxative. <Gabriela Darnell - 03/06/18 09:46>
--- NOTE | 2018-03-06 15:24 | Discharge Summary ---
General - General Admission date:: 03/06/18 Discharge date: 03/06/18 HPI HPI: Mr. Parry was riding his horse, and the horse rared back and threw him off the side of the horse. He reported pain in the left side of his chest/back area as well as Left clavicle pain and Pain on the inside of thighs from the saddle. He reported the horse hit him in the face resulting in pain in the left side of cheek, under his left eye. Chest x-ray completed in the emergency room revealed fractures of ribs on the left and a small pneumothorax. Repeat chest x-ray this morning showed no pneumothorax. Patient's pain is mostly in the left side of his chest wall. He has some shortness of breath due the fact that he cannot take a deep breath. Pain is controlled with p.o. medicine. He denies nausea. Hospital Course Hospital Course: The patient did well and was tolerating a regular diet. His CXR was reviewed with the radiologist and there was no PTX. He was stable to be discharged home and will f/u in the office next week. Objective Vital signs: Temp Pulse Resp BP Pulse Ox 98.2 F 72 20 123/67 99 03/06/18 07:46 03/06/18 07:46 03/06/18 07:46 03/06/18 07:46 03/06/18 07:46 Narrative: - Constitutional no acute distress - *Routine HEENT Exam Head: Present: normocephalic, atraumatic Eye: Present: PERRL ENT: Present: mucous membranes moist, oropharynx clear, dentition normal, nares patent - *Routine Neck Exam Present: supple. Absent: carotid bruit, lymphadenopathy, thyromegaly, tenderness - *Routine Respiratory Exam Present: decreased breath sounds (In bases hurts to take a deep breath.), CTA bilaterally - *Routine Cardiovascular Exam Present: RRR - *Routine Abdominal Exam Present: soft, normoactive bowel sounds. Absent: tenderness, distended - *Routine Extremities Exam Present: full ROM, pulses intact. Absent: edema, calf tenderness - *Routine Neurological Exam Present: alert, oriented X3 Results Labs on day of discharge: Labs from last 24 hours 03/06/18 03/06/18 03/06/18 12:32 06:40 06:40 WBC 6.2 D RBC 4.11 L Hgb 12.9 L D Hct 39.7 L MCV 96.6 H MCH 31.5 H MCHC 32.6 RDW 13.2 Plt Count 144 MPV 7.6 Neut % (Auto) 72.2 Lymph % (Auto) 18.3 [place] % (Auto) 7.4 Eos % (Auto) 1.6 Baso % (Auto) 0.5 Neut # (Auto) 4.5 Lymph # (Auto) 1.1 [place] # (Auto) 0.5 Eos # (Auto) 0.1 Baso # (Auto) 0.0 Total Counted Neutrophils % (Manual) Band Neutrophils % Lymphocytes % (Manual) Platelet Estimate RBC Morphology Sodium 144 Potassium 4.3 Chloride 110 H Carbon Dioxide 28 Anion Gap 10.3 BUN 28 H Creatinine 1.30 Estimated Creat Clear 69 Estimated GFR 56 L Est GFR ( Amer) 68 Glucose 194 H D POC Glucose 249 H 03/06/18 03/05/18 03/05/18 06:36 22:00 22:00 WBC 11.8 H RBC 4.67 Hgb 14.8 Hct 44.5 MCV 95.2 H MCH 31.8 H MCHC 33.4 RDW 12.9 Plt Count 176 MPV 7.4 Neut % (Auto) 87.8 H Lymph % (Auto) 6.8 L [place] % (Auto) 4.6 Eos % (Auto) 0.5 Baso % (Auto) 0.3 Neut # (Auto) 10.3 H Lymph # (Auto) 0.8 [place] # (Auto) 0.5 Eos # (Auto) 0.1 Baso # (Auto) 0.0 Total Counted 100 Neutrophils % (Manual) 84 H Band Neutrophils % 9.0 H Lymphocytes % (Manual) 7 L Platelet Estimate Normal RBC Morphology Normal Sodium 140 Potassium 4.0 Chloride 105 Carbon Dioxide 25 Anion Gap 14.0 BUN 33 H Creatinine 1.52 H Estimated Creat Clear 61 Estimated GFR 47 L Est GFR ( Amer) 57 L Glucose 272 H POC Glucose 189 H DS: Diagnosis - Discharge Diagnosis (1) Cervical strain, acute Status: Acute (2) Contusion of head Status: Acute (3) Contusion, abdominal wall Status: Acute (4) Left wrist sprain Status: Acute (5) Pneumothorax on left Status: Acute (6) Ribs, multiple fractures Status: Acute (7) Diabetes Status: Acute Discharge Plan - Patient Discharge Instructions ACTIVITY: Continue current activity DIET: continue same diet Patient Instructions: Contusion, Wrist Sprain, Rib Fracture, Pneumothorax - Follow up Plan Follow up with: Sukhdeep Ramon MD [Primary Care Provider] - 1 week Disposition: Home, Self-[facility] Medications: Home Medications Medication Instructions Recorded Confirmed Type Aspirin [Aspirin 81mg EC Tab] 81 mg PO DAILY 01/06/18 03/05/18 History Carvedilol [Carvedilol 3.125mg Tab] 3.125 mg PO BID 01/06/18 03/06/18 History Clopidogrel Bisulfate [Plavix 75mg 75 mg PO DAILY 01/06/18 03/06/18 History Tab] Lisinopril [Lisinopril 10mg Tab] 10 mg PO DAILY 01/06/18 03/06/18 History Metformin HCl [Metformin 500mg 500 mg PO BID 01/06/18 03/06/18 History Tablet] NIFEdipine [Nifedipine ER] 60 mg PO DAILY 01/06/18 03/06/18 History Prescriptions/Medication Reconciliation: New Oxycodone HCl/Acetaminophen [Percocet 7.5/325mg tablet] 1 tab PO Q4H PRN #18 tab PRN Reason: Moderate To Severe Pain Continue NIFEdipine [Nifedipine ER] 60 mg PO DAILY Metformin HCl [Metformin 500mg Tablet] 500 mg PO BID Lisinopril [Lisinopril 10mg Tab] 10 mg PO DAILY Clopidogrel Bisulfate [Plavix 75mg Tab] 75 mg PO DAILY Carvedilol [Carvedilol 3.125mg Tab] 3.125 mg PO BID Aspirin [Aspirin 81mg EC Tab] 81 mg PO DAILY
== END 2018-03-06 14:40 | disposition home or self-care (01) ==
LOC: 2ND 21:45 → ER 21:45 → OBSVTOIN 03-06 00:40 → 2ND 03-06 00:44
PROVIDERS: ADMIT Family Medicine; ATTEND Family Medicine
CPT/HCPCS: 36415; 70450; 70486; 71020; 71046; 71101; 71275; 72125; 72170; 73000; 73030; 73110; 74177; 80048; 82962; 85007; 85025; 96365; 96375; 96376; 99284; J2405; Q9967

== ENCOUNTER → 2018-03-13 14:04 | Outpatient (CLI) | payer BC, SELFPAY ==
--- NOTE | 2018-03-13 14:11 | XR_ITS ---
XR chest 2V HISTORY: ITS.REASON: LEFT SIDE CHEST PAIN,FX OF MULTIPLE RIBS ORDERING PHYSICIAN: Sukhdeep Ramon MD PATIENT AGE: 62 years COMPARISON: 03/06/2018 FINDINGS: The cardiomediastinal silhouette and pulmonary vascularity are within normal limits. There are healing fractures involving the left fifth, sixth, seventh, and eighth ribs. The seventh rib fractures are displaced. . No evidence of pneumothorax. There is minimal pleural thickening/small effusion on the left. Mild atelectatic changes are present in the left lung base. The right lung is clear. No appreciable pneumothorax. IMPRESSION: Healing left fifth through seventh rib fractures with small pleural effusion and minimal left basilar atelectasis. Atelectasis has improved since previous exam
== END ==
PROVIDERS: PCP Family Medicine; Visit Provider Family Medicine
DX: R07.9 Chest pain, unspecified (principal); S27.0XXA Traumatic pneumothorax, initial encounter; S22.42XA Multiple fractures of ribs, left side, initial encounter for closed fracture
CPT/HCPCS: 71046

== ENCOUNTER 2020-02-26 21:08 | Observation (INO) | payer BC, SELFPAY ==
[2020-02-26] VITALS (8 sets, daily range): BP systolic 126–167; BP diastolic 65–91; PULSE 76–95; RESP 14–19; TEMP 36.8–36.9; O2SAT 95–99; BMI 28.8; BMI 27.8
--- NOTE | 2020-02-26 | ECG_ITS ---
APPROVED REPORT Exam: Resting ECG HR:75 bpm ECG Measurements Heart Rate 75 AXES MN 144 P 38 QRSd 82 QRS -9 QT 364 T -32 QTc 406 <Conclusion> Normal sinus rhythm Voltage criteria for left ventricular hypertrophy Nonspecific T wave abnormality Abnormal ECG Electronically signed by : Thom Álvarez, 02/27/2020 16:46:59
--- NOTE | 2020-02-26 21:18 | ECG_ITS ---
APPROVED REPORT Exam: Resting ECG HR:85 bpm ECG Measurements Heart Rate 85 AXES CO 152 P 48 QRSd 84 QRS 6 QT 356 T 14 QTc 423 <Conclusion> Normal sinus rhythm Minimal voltage criteria for LVH, may be normal variant Borderline ECG Electronically signed by : Thom Álvarez, 02/27/2020 16:47:07
--- NOTE | 2020-02-26 21:18 | XR_ITS ---
PROCEDURE: XR CHEST PORTABLE CLINICAL HISTORY: chest pain COMPARISON: [facility] CT angio chest from 03/05/2018 CXR2V XR chest 2V from 03/06/2018 CXR2V XR chest 2V from 03/13/2018 XR CHEST 2V from 11/19/2019 FINDINGS: The cardiomediastinal silhouette and pulmonary vascularity are within normal limits. The lungs are clear without infiltrates, suspicious nodules, or pleural effusions. There are old fractures of the left 5th 6th and 7th ribs. There is severe left subacromial stenosis of the shoulder which may be seen with rotator cuff disease. IMPRESSION: There are old fractures of the left 5th 6th and 7th ribs. There is severe left subacromial stenosis of the shoulder which may be seen with rotator cuff disease No acute cardiac or pulmonary findings. Dictated by: Manoj Hernandez MD 02/27/2020 06:32 Electronically signed by Manoj Hernandez MD in [place] 02/27/2020 06:32
[2020-02-26 21:26] LABS: Basophils # 0.1 K/mm3 (0-0.2); Basophils % 1.7 % (0.1-2.0); Eosinophils # 0.3 K/mm3 (0.0-0.4); Eosinophils % 4.2 % (0.1-12.0); Hematocrit 54.3 % (42.0-52.0); Lymphocytes # 1.1 K/mm3 (0.7-4.5); Lymphocytes % 15.2 % (10-50); Mean Corpuscular HGB Conc 34.1 g/dL (31.8-35.4); Mean Corpuscular Hemoglobin 32.7 pg (27.0-31.2); Mean Corpuscular Volume 95.7 fl (80-94); Mean Platelet Volume 8.1 fl (7.4-10.4); Monocytes # 0.6 K/mm3 (0.1-1.0); Monocytes % 7.8 % (1.7-9.3); Neutrophils % 71.1 % (37.0-80.0); Platelet Count 155 K/mm3 (142-424); Red Blood Count 5.67 M/mm3 (4.60-6.20); Red Cell Distribution Width 12.7 % (11.5-17.5); White Blood Count 7.1 K/mm3 (4.8-10.8)
[2020-02-26 21:30] LABS: Chloride 104 mmol/L (98-107); Potassium 3.9 mmoL/L (3.5-5.1); Sodium 140 mmol/L (136-145)
[2020-02-26 21:33] LABS: Anion Gap 15.9 mEq/L (5-15); Blood Urea Nitrogen 27 mg/dl (9-20); Carbon Dioxide 24 mmol/L (22.0-30.0); Creatinine Clearance Estimated 83 mL/min (50-200); Estimated Glomerular Filt Rate 67 ml/min (>60); GFR (African American) 82 ML/MIN (>60); Hemoglobin 18.5 g/dL (14.1-18.0)
[2020-02-26 21:34] LABS: Calcium 10.6 mg/dl (8.4-10.2); Glucose 216 mg/dl (74-100)
--- NOTE | 2020-02-26 21:45 | HMH.EDCP ---
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 The time I documented below is in addition to time spent performing reported procedures but includes the following listed in this critical care notation. Medical Decision Making - Medical Records Medical records reviewed: Yes: I reviewed the patient's medical records. - Cesar Inquiry Pt receiving controlled substance: No Vital Signs: 02/26/20 21:08 Temperature 98.4 F Temperature Source Oral Pulse Rate [Right Brachial] 95 H Respiratory Rate 18 Blood Pressure [Right Arm] 128/87 Blood Pressure Mean [Right Arm] 100 Blood Pressure Source [Right Arm] Automatic Cuff Blood Pressure Position [Right Arm] Sitting 02 Sat by Pulse Oximetry 99 Oxygen Delivery Method Room Air - Lab Data Lab results reviewed: Yes: I reviewed the patient's lab results. Lab Results 02/26/20 21:11: WBC 7.1, RBC 5.67, Hgb 18.5 H*, Hct 54.3 H, MCV 95.7 H, MCH 32.7 H, MCHC 34.1, RDW 12.7, Plt Count 155, MPV 8.1, Neut % (Auto) 71.1, Lymph % (Auto) 15.2, Waller % (Auto) 7.8, Eos % (Auto) 4.2, Baso % (Auto) 1.7, Neut # (Auto) 5.0, Lymph # (Auto) 1.1, Waller # (Auto) 0.6, Eos # (Auto) 0.3, Baso # (Auto) 0.1 02/26/20 21:11: Troponin I < 0.01 02/26/20 21:11: Sodium 140, Potassium 3.9, Chloride 104, Carbon Dioxide 24, Anion Gap 15.9 H, BUN 27 H, Creatinine 1.10, Estimated Creat Clear 83, Estimated GFR 67, Est GFR ( Amer) 82, Glucose 216 H, Calcium 10.6 H Result diagrams: 02/26/20 21:11 02/26/20 21:11 Orders (Tests/Meds): ED MEDICATIONS Generic Name Dose Route Start Last Admin Trade Name Freq PRN Reason Stop Dose Admin Sodium Chloride 1,000 mls @ 999 mls/hr 02/26/20 21:15 02/26/20 21:25 Sod Chlor 0.9% 1000ml Bag IV 02/26/20 22:15 999 mls/hr .Q1H1M GRACIELA Administration Nitroglycerin/Dextrose 250 mls @ 3 mls/hr 02/26/20 21:45 02/26/20 21:43 Nitroglycerin 50mg/250ml D5w IV 03/27/20 21:44 10 mcg/min .Q24H GRACIELA 3 mls/hr Administration Protocol 10 MCG/MIN Eptifibatide 100 mls @ 2.7 mls/hr 02/26/20 22:35 Integrilin 200mg/100ml Bottle IV 02/27/20 23:34 .Q25H ONE Sodium Chloride 8 ml 02/26/20 21:15 02/26/20 21:26 Sodium Chloride 0.9% 10ml Vial IV 03/27/20 21:14 8 ml NEEDED PRN Administration dilute pepcid Discontinued Medications Generic Name Dose Route Start Last Admin Trade Name Freq PRN Reason Stop Dose Admin Enoxaparin Sodium 90 mg 02/26/20 22:29 Lovenox 100mg/Ml Syringe SQ 02/26/20 22:30 ONCE ONE Eptifibatide 15.8 mg 02/26/20 22:40 Integrilin 20mg/10ml Vial IV 02/26/20 22:41 ONCE ONE Famotidine 20 mg 02/26/20 21:14 02/26/20 21:25 Pepcid 20mg/2ml Vial IV 02/26/20 21:15 20 mg ONCE ONE Administration Hydromorphone HCl 1 mg 02/26/20 21:28 02/26/20 21:30 Dilaudid 2mg/Ml Syringe IV 02/26/20 21:29 1 mg ONCE ONE Administration Metoclopramide HCl 10 mg 02/26/20 21:14 02/26/20 21:25 Reglan 10mg/2ml Vial IVP 02/26/20 21:15 10 mg ONCE ONE Administration Nitroglycerin 1 gm 02/26/20 21:16 02/26/20 21:25 Nitroglycerin 1 Inch Oint Udp TD 02/26/20 21:17 1 gm ONCE ONE Administration Nitroglycerin 0.4 mg 02/26/20 21:16 02/26/20 21:25 Nitrostat 0.4mg Sl Tablet SL 01/30
[2020-02-26 21:50] LABS: Troponin I < 0.01 ng/ml (0.00-0.034)
--- NOTE | 2020-02-26 21:56 | PC.NURSE ---
increased nitro to 9ml/hr; 15 mcg
--- NOTE | 2020-02-26 22:15 | PC.NURSE ---
pt is at 40mcgs of Nitro at this time via gtt. at bedside
--- NOTE | 2020-02-26 22:17 | PC.NURSE ---
pt states feels comfortable.
--- NOTE | 2020-02-26 22:28 | PC.NURSE ---
sent EKG's to elisa. speaking to elisa on the phone
--- NOTE | 2020-02-26 22:44 | PC.NURSE ---
spoke with silvia about admission
--- NOTE | 2020-02-26 23:35 | PC.NURSE ---
pt arrived to floor via stretcher from ED with VERO Love
[2020-02-27] VITALS (9 sets, daily range): BP systolic 105–118; BP diastolic 62–73; PULSE 59–82; RESP 12–20; TEMP 36.6–36.8; O2SAT 93–98; BMI 27.7
[2020-02-27 01:09] LABS: Troponin I < 0.01 ng/ml (0.00-0.034)
--- NOTE | 2020-02-27 01:36 | PC.NURSE ---
@ 0010 - Integrilin gtt decreased to 5ml/hr from 5.3ml/hr d/t weight. Original dosing made on weight stated by pt of 86kg, although on the floor weigh-bed scale used and pt is 83kg and dosing parameters change @ 85kg. @ 0032 - This RN s/w with Dr. Gonzales regarding double bolus of Integrilin phone order given to Dr. Ventura/Kasie Soto RN/this RN. Dr. Gonzales is ok with only 1 bolus dose, see Provider notification.
--- NOTE | 2020-02-27 02:08 | PC.NURSE ---
Late entry- Pt was made aware that staff needed a urine sample, however pt forgot and used the commode while staff was out of room. Pt re-educated on need for urine collection. Specimen container within reach. Pt stated his understanding.
--- NOTE | 2020-02-27 04:01 | PC.NURSE ---
@ 0305 - Decreased pt's Nitro gtt to 6ml/hr (20mcg/min) d/t downward trend in BP, currently @ 107/64. Pt has also taken off the NC and room air sat is 97%. Will continue to monitor pt.
[2020-02-27 04:12] LABS: Troponin I 0.05 ng/ml (0.00-0.034)
--- NOTE | 2020-02-27 05:00 | PC.NURSE ---
Dr. Yang notified of 3rd troponin result of 0.05, no new orders. Pt continues to rest intermittently and reports no continued chest pain, pressure, or uneasy feeling as he felt in the ER. VSS, will continue to monitor pt's condition.
[2020-02-27 05:45] LABS: POC Glucose,Bedside 147 (70-110)
[2020-02-27 06:47] LABS: Eosinophils # 0.2 K/mm3 (0.0-0.4); Monocytes # 0.4 K/mm3 (0.1-1.0)
--- NOTE | 2020-02-27 06:50 | PC.NURSE ---
@ 0515 titrated Nitro gtt down to 3ml/hr. Pt continues to be chest pain free.
--- NOTE | 2020-02-27 06:52 | PC.NURSE ---
Attempted to prep pt with surgical clipping of wrist and groin, pt refused at thsi time. 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
[2020-02-27 06:55] LABS: Basophils % 0.9 % (0.1-2.0); Eosinophils % 2.8 % (0.1-12.0); Hematocrit 44.3 % (42.0-52.0); Lymphocytes % 19.5 % (10-50); Mean Corpuscular HGB Conc 34.3 g/dL (31.8-35.4); Mean Corpuscular Hemoglobin 32.6 pg (27.0-31.2); Mean Corpuscular Volume 95.1 fl (80-94); Mean Platelet Volume 8.6 fl (7.4-10.4); Monocytes % 6.3 % (1.7-9.3); Neutrophils # 4.9 K/mm3 (1.8-7.8); Neutrophils % 70.5 % (37.0-80.0); Platelet Count 143 K/mm3 (142-424); Red Blood Count 4.66 M/mm3 (4.60-6.20); Red Cell Distribution Width 12.6 % (11.5-17.5)
[2020-02-27 06:56] LABS: Basophils # 0.1 K/mm3 (0-0.2); Lymphocytes # 1.4 K/mm3 (0.7-4.5)
[2020-02-27 06:57] LABS: Chloride 109 mmol/L (98-107); Potassium 4.1 mmoL/L (3.5-5.1); Sodium 138 mmol/L (136-145)
[2020-02-27 06:58] LABS: Activated Partial Thrombo Time 31.6 seconds (23.6-34.0); INR 1.16 (0.9-1.1)
[2020-02-27 07:00] LABS: Anion Gap 10.1 mEq/L (5-15); Blood Urea Nitrogen 26 mg/dl (9-20); Carbon Dioxide 23 mmol/L (22.0-30.0); Cholesterol 143 mg/dl (140-200); Creatinine Clearance Estimated 80 mL/min (50-200); Estimated Glomerular Filt Rate 67 ml/min (>60); GFR (African American) 82 ML/MIN (>60); Triglycerides 166 mg/dl (30-150); VLDL Cholesterol 33 mg/dL (0-40)
[2020-02-27 07:01] LABS: Chol/HDL Ratio 4.8 (1-3.5); Glucose 139 mg/dl (74-100); HDL Cholesterol 30 mg/dl (40-60); Hemoglobin 15.2 g/dL (14.1-18.0); Magnesium 1.8 mg/dl (1.6-2.3)
[2020-02-27 07:12] LABS: Calcium 9.2 mg/dl (8.4-10.2); Direct LDL Cholesterol 118.29 mg/dL (100-129)
--- NOTE | 2020-02-27 07:24 | HMH.PHAINT ---
MEDICATION RECONCILIATION COMPLETED ON PATIENT USING EXTERNAL FILL HISTORY FROM PHARMACY. -TIFFANI KAY, ANAYELID
--- NOTE | 2020-02-27 07:25 | HMH.PHAVTE ---
[facility] Pharmacy VTE Monitoring - Patient Demographics Admission date: 02/26/20 Report Date: 02/27/20 Time: 07:25 Allergies/Adverse Reactions: Patient Allergies Penicillins [PENICILLINS] Allergy (Intermediate, Verified 01/16/19 08:26) I-RASH Height: 1.73 m Weight: 83.092 kg Patient Problems: Current Active Problems Diabetes (Acute) Acute coronary syndrome (Acute) Tobacco use (Acute) - VTE Risk Labs: VTE Related Lab Results Hgb 15.2 g/dL (14.1-18.0) D 02/27/20 05:35 Hct 44.3 % (42.0-52.0) 02/27/20 05:35 Plt Count 143 K/mm3 (142-424) 02/27/20 05:35 PT 12.0 seconds (9.4-11.8) H 02/27/20 05:58 INR 1.16 (0.9-1.1) H 02/27/20 05:58 APTT 31.6 seconds (23.6-34.0) 02/27/20 05:58 BUN 26 mg/dl (9-20) H 02/27/20 05:35 Creatinine 1.10 mg/dl (0.66-1.25) 02/27/20 05:35 Estimated Creat Clear 83 mL/min (50-200) 02/26/20 21:11 Was VTE Risk Assessment Performed: Yes VTE Score: 3 VTE Risk Level: Low Risk - Prophylaxis VTE Prophylaxis Ordered?: Yes Types of VTE Prophylaxis: TEDS Knee High Location of Applied Device: Bilateral Lower Extremeties - VTE Diagnosis Confirmed Treatment or plan recommended: Continue Current Treatment
[2020-02-27 07:42] LABS: Microscopic, Urine URINE MICROSCOPIC (MICROSCOPIC)
[2020-02-27 07:44] LABS: Appearance,Urine TURBID (Clear); Blood, Urine 3+ (Negative); Color,Urine BROWN (Yellow); Glucose,Urine (UA) 3+ (Negative); Ketones,Urine Negative (Negative); Leukocyte Esterase,Urine Negative (Negative); Nitrate,Urine POSITIVE (Negative); PH,Urine 6.5 (5.0-8.5); Protein,Urine 2+ (Negative); Specific Gravity, Urine >= 1.030 (1.005-1.030)
[2020-02-27 07:51] LABS: Bilirubin,Urine Negative (Negative)
[2020-02-27 07:57] LABS: Bacteria,Urine 3+ /lpf; RBC,Urine TNTC #/hpf (0-3); Squamous Epithelial Cell,Urine Occasional #/hpf (0-5)
--- NOTE | 2020-02-27 08:00 | CA_ITS ---
APPROVED REPORT EXAM: Comprehensive 2D, Doppler, and color-flow Echocardiogram Diver Helper: Pia Kim CRT Ht: 5 ft 8 in Wt: 190lbs BSA: 2.00 BP: 128/87 mmHg Indications: Chest Pain, Diabetes, CAD, Hypertension/HDD, stent 2016, 2017, smoker 2D Dimensions LVOT 2.15 cm (M/F) 1.5-2.5 M-Mode Dimensions RVDd 2.40 cm (0.9-2.6) LVDd 3.53 cm (3.5-5.7) LVDs 2.84 cm (3.5-5.7) IVSd 2.03 cm (0.6-1.1) PWd 0.66 cm (0.6-1.1) EF (Teich) 41.00% FS 19.50% EDV (Teich) 51.90 mL ESV (Teich) 30.60 mL LV Diastology E/A Ratio 0.88 Mitral Valve MV A Velocity 87.00 (40-130 cm/s) Left Ventricle Left atrium is mildly enlarged, left ventricle is normal size, mild concentric left ventricular hypertrophy, visually estimated ejection fraction 55% with no regional wall motion abnormality, grade 1 diastolic dysfunction seen without tissue Doppler evidence of raise left atrial pressure. Right Ventricle Right atrium and right ventricular normal size and contractility. Aortic Valve Aortic valve is thickened and calcified leaflet continue to display good mobility, there is no aortic stenosis or aortic insufficiency. Mitral Valve Mitral valve is grossly normal, there is mild mitral regurgitation. Tricuspid Valve Tricuspid valve is grossly normal, there is mild tricuspid regurgitation, tricuspid regurgitation jet velocity is inadequate for calculation of the right ventricular systolic pressure. Pulmonic Valve Pulmonic valve is poorly visualized. Great Vessels Aortic root is normal size. Pericardium No significant pericardial effusion noted. Conclusion 1. Mildly enlarged left atrium, normal left ventricular size, mild concentric left ventricular hypertrophy, visually estimated ejection fraction 55% with no regional wall motion abnormality, grade 1 diastolic dysfunction seen without tissue Doppler evidence of raise left atrial pressure. 2. Thickened and calcified aortic valve without Doppler evidence of aortic stenosis or aortic insufficiency. 3. Mild mitral and tricuspid regurgitation. 4. No significant pericardial effusion noted. Electronically signed by : Shyam Jenkins, 02/28/2020 11:49:53
--- NOTE | 2020-02-27 08:54 | HMH.HP ---
*Admission Date: 02/26/20 <Sarita Santizo 02/27/20 09:02> *Chief complaint: chest pain <Sarita Santizo 02/27/20 09:02> *History of present illness: Mr. Parry is a 64-year-old male with a history of hypertension, type 2 diabetes, coronary artery disease, history of [place] in 2016, and kidney stones. He states he has been under an extreme amount of stress the past few weeks. He has had chest pressure off and on for the last 2 weeks. He states he had a stressful meeting last night and after the meeting, began having midsternal chest pressure that radiated down his left arm and some down his right arm. This began around 7:30 PM and he did present to the emergency room. He states he was given nitro as well as morphine and this did not resolve the pain. He was given some Dilaudid and finally was able to rest. When he woke up, his chest pain had resolved. 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 <Sarita Santizo 02/27/20 09:02> [facility] History I have reviewed the patient's past medical history: Yes <Sarita Santizo 02/27/20 09:02> Medical History: Reports:: Atherosclerotic Heart Disease, Coronary Artery Disease, Diabetes Mellitus Type 2, Hyperlipidemia, Hypertension, Kidney Stones, Myocardial Infarction Denies:: Cancer, Cerebrovascular Accident, Dementia, Diabetes Mellitus Type 1, Gastroesophageal Reflux Disease(GERD), MRSA, Seizures <Sarita Santizo 02/27/20 09:02> *Have you ever received a pneumonia vaccine?: No <Sarita Santizo 02/27/20 09:02> *Have you received a flu vaccine this season?: No <Sarita Santizo 02/27/20 09:02> Other Medical History: Reports: Arthritis, Cataracts, Sinus Problems <Sarita Santizo 02/27/20 09:02> Laterality Cases: Left: Arthroscopy Knee, Cataract <Sarita Santizo 02/27/20 09:02> Other Surgeries: Yes: Cardiac Catheterization, Coronary Stent <Sarita Santizo 02/27/20 09:02> Amputation: Yes (RIGHT INDEX FINGER) <Sarita Santizo 04/29/20 09:02> Fractures: No <Sarita Santizo 02/27/20 09:02> Comment: kidney stones <Sarita Santizo 02/27/20 09:02> - *Social History Educational Level: Attended College <Sarita Santizo 02/27/20 09:02> Smoking Status: Current every day smoker <Sarita Santizo 02/27/20 09:02> Tobacco Type: cigarettes <Sarita Santizo 02/27/20 09:02> # Packs/Day (cigarettes): 1 <Sarita Santizo 02/27/20 09:02> Alcohol Intake: former <Sarita Santizo 02/27/20 09:02> Substance Use Type: marijuana <Sarita Santizo 02/27/20 09:02> *Occupational Status:: employed <Sarita Santizo 02/27/20 09:02> Housing: house <Sarita Santizo 02/27/20 09:02> Household Members: none <Sarita Santizo 02/27/20 09:02> *Travel in the last 8 weeks: None <Sarita Santizo 02/27/20 09:02> Family Hx:: Cancer, Diabetes <Kyle Santizoa 02/27/20 09:02> Review of Systems - Constitutional Denies body ache(s), Denies chills, Denies fever(s), Denies weakness <Sarita Santizo 02/27/20 09:02> - Eyes Denies blurry vision, Denies double vision <Sarita Santizo 02/27/20 09:02> - ENT Denies nasal congestion, Denies sore throat <Sarita Santizo 02/27/20 09:02> - *Cardiovascular Reports chest pain, Reports shortness of breath, Denies excessive sweating, Denies leg swelling, Denies rapid, pounding, or irregular heartbeat <Sarita Santizo 02/27/20 09:02> - *Respiratory Reports shortness of breath, Denies chest congestion, Denies cough <Sarita Santizo 02/27/20 09:02> - *Gastrointestinal Denies abdominal pain, Denies loose stools, Denies nausea, Denies vomiting <Sarita Santizo 02/27/20 09:02> - *Genitourinary Denies difficulty urinating, Denies painful urination <Sarita Santizo 02/27/20 09:02> - *Musculoskeletal Reports radiating pain into limb, Denies joint pain, Denies body aches <Sarita Santizo 02/27/20 09:02> - *Neurologic Denies dizziness, Denies headache(s), Denies seizure-like activity, Denies weakness <Darlyn
--- NOTE | 2020-02-27 09:05 | PC.NURSE ---
PER DR LOPEZ - DARIA RASHEED AT IS DR MARYANNE FOSTER
--- NOTE | 2020-02-27 10:58 | PC.NURSE ---
urine very dark brown in color.
--- NOTE | 2020-02-28 15:49 | HMH.DCSUM ---
General - General Admission date:: 02/26/20 <Sukhdeep Ramon - 02/28/20 16:41> 02/26/20 <Sarita Santizo - 02/28/20 15:51> Discharge date: 02/27/20 <Sarita Santizo - 02/28/20 15:51> HPI HPI: Mr. Parry is a 64-year-old male with a history of hypertension, type 2 diabetes, coronary artery disease, history of [place] in 2016, and kidney stones. He states he has been under an extreme amount of stress the past few weeks. He has had chest pressure off and on for the last 2 weeks. He states he had a stressful meeting last night and after the meeting, began having midsternal chest pressure that radiated down his left arm and some down his right arm. This began around 7:30 PM and he did present to the emergency room. He states he was given nitro as well as morphine and this did not resolve the pain. He was given some Dilaudid and finally was able to rest. When he woke up, his chest pain had resolved. His hot car operator is at [facility] and he states he just had a normal stress test approximately 6 to 8 months ago. <Sarita Santizo - 02/28/20 15:51> Hospital Course Hospital Course: Patient was treated with an Integrilin drip and a NTG drip during his hospitalization <Sukhdeep Ramon - 02/28/20 16:41> The patient's chest x-ray showed nothing acute. His first 2 set of cardiac enzymes were normal, however his third set was slightly elevated. Dr. Ramon spoke with his hot car operator, Dr. Shafer, at [facility]. He accepted the patient in transfer and he was transferred for further evaluation and treatment. <Sarita Santizo - 02/28/20 15:51> Objective Vital signs: Temp Pulse Resp BP Pulse Ox 97.8 F 63 14 111/71 98 02/27/20 08:00 02/27/20 09:00 02/27/20 09:00 02/27/20 09:00 02/27/20 09:00 <Sukhdeep Ramon - 02/28/20 16:41> Temp Pulse Resp BP Pulse Ox 97.8 F 63 14 111/71 98 02/27/20 08:00 02/27/20 09:00 02/27/20 09:00 02/27/20 09:00 02/27/20 09:00 <Sarita Santizo 02/28/20 15:51> Narrative: - Constitutional no acute distress - *Routine HEENT Exam Head: Present: normocephalic Eye: Present: EOMI, PERRL ENT: Present: mucous membranes moist - *Routine Neck Exam Present: supple. Absent: lymphadenopathy - *Routine Respiratory Exam Present: CTA bilaterally - *Routine Cardiovascular Exam Present: RRR - *Routine Abdominal Exam Present: soft, normoactive bowel sounds. Absent: tenderness - *Routine Extremities Exam Absent: cyanosis, clubbing, edema - *Routine Skin Exam Present: warm. Absent: rash - *Routine Neurological Exam Present: alert, oriented X3 <Sarita Santizo 02/28/20 15:51> Results Labs on day of discharge: Preliminary micro results at discharge 02/27/20 05:43 Urine Culture - Preliminary Urine,Clean Catch NO GROWTH AFTER 24 HOURS <Sukhdeep Ramon 02/28/20 16:41> Preliminary micro results at discharge 02/27/20 05:43 Urine Culture - Preliminary Urine,Clean Catch NO GROWTH AFTER 24 HOURS <Sarita Santizo 02/28/20 15:51> DS: Diagnosis - Discharge Diagnosis (1) Chest pain Status: Acute (2) Elevated troponin Status: Acute (3) Diabetes Status: Chronic (4) Tobacco use Status: Chronic (5) Coronary artery disease Status: Chronic (6) History of heart artery stent Status: Chronic <Sukhdeep Ramon 02/28/20 16:41> (1) Chest pain Status: Acute (2) Elevated troponin Status: Acute (3) Diabetes Status: Chronic (4) Tobacco use Status: Chronic (5) Coronary artery disease Status: Chronic (6) History of heart artery stent Status: Chronic <Sarita Santizo 02/28/20 15:49> Discharge Plan - Patient Discharge Instructions ACTIVITY: Continue current activity <Sarita Santizo 02/28/20 15:51> DIET: NPO <Sarita Santizo 02/28/20 15:51> Patient Instructions: DI for Acute Coronary Syndrome, DI for Chest Pain <Mu
== END 2020-02-27 10:50 | disposition short-term general hospital (02) ==
LOC: ER 22:14 → 2ND 22:51
PROVIDERS: Admitting Provider Family Medicine; Emergency Provider Emergency Medicine; PCP Family Medicine; Visit Provider Family Medicine
DX: R07.9 Chest pain, unspecified (principal); I25.2 Old myocardial infarction; I10 Essential (primary) hypertension; I25.10 Atherosclerotic heart disease of native coronary artery without angina pectoris; E11.9 Type 2 diabetes mellitus without complications; Z72.0 Tobacco use; Z95.5 Presence of coronary angioplasty implant and graft; R79.89 Other specified abnormal findings of blood chemistry
CPT/HCPCS: 36415; 71045; 80048; 80061; 81001; 82962; 83735; 84484; 85025; 85610; 85730; 87086; 93005; 93306; 96365; 96375; 99285; G0378; J1327; J2405

== ENCOUNTER → 2021-07-07 15:28 | Outpatient (CLI) | payer BC, SELFPAY ==
--- NOTE | 2021-07-07 15:32 | XR_ITS ---
PROCEDURE: XR CHEST PORTABLE CLINICAL HISTORY: COVID OUTPATIENT COMPARISON: CT AGCHEST CT angio chest from 03/05/2018 CR CXR2V XR chest 2V from 03/13/2018 CR XR CHEST 2V from 11/19/2019 CR XR CHEST PORTABLE from 02/26/2020 FINDINGS: The cardiomediastinal silhouette and pulmonary vascularity are within normal limits. The lungs are clear without infiltrates, suspicious nodules, or pleural effusions. There are old left-sided rib fractures. IMPRESSION: No acute findings. Dictated by: Manoj Hernandez MD 07/07/2021 15:56 Manoj Hernandez MD in OV 07/07/2021 15:56
[2021-07-07 17:25] LABS: Adenovirus,PCR Not Detected (NotDetected); Bordetella Pertussis Not Detected (NotDetected); Chlamydophila Pneumoniae, PCR Not Detected (NotDetected); Coronavirus 229E Not Detected (NotDetected); Coronavirus NL63 Not Detected (NotDetected); Coronavirus OC43 Not Detected (NotDetected); Coronovirus HKU1,PCR Not Detected (NotDetected); Human Metapneumovirus Not Detected (NotDetected); Influenza A, PCR Not Detected (NotDetected); Influenza AH1, 2009 Not Detected (NotDetected); Influenza AH1, PCR Not Detected (NotDetected); Influenza AH3,PCR Not Detected (NotDetected); Influenza B, PCR Not Detected (NotDetected); Mycoplasma Pneumoniae, PCR Not Detected (NotDetected); Parainfluenza 1, PCR Not Detected (NotDetected); Parainfluenza 2, PCR Not Detected (NotDetected); Parainfluenza 3, PCR Not Detected (NotDetected); Parainfluenza 4, PCR Not Detected (NotDetected); Respiratory Syncytial Virus Not Detected (NotDetected); Rhinovirus/Enterovirus Not Detected (NotDetected)
[2021-07-07 17:44] LABS: Basophils % 0.9 % (0.1-2.0); Eosinophils # 0.1 K/mm3 (0.0-0.4); Eosinophils % 3.4 % (0.1-12.0); Hematocrit 51.1 % (42.0-52.0); Hemoglobin 16.8 g/dL (14.1-18.0); Lymphocytes # 0.7 K/mm3 (0.7-4.5); Lymphocytes % 16.1 % (10-50); Mean Corpuscular HGB Conc 32.8 g/dL (31.8-35.4); Mean Corpuscular Hemoglobin 32.2 pg (27.0-31.2); Mean Corpuscular Volume 98.1 fl (80-94); Mean Platelet Volume 8.3 fl (7.4-10.4); Monocytes # 0.3 K/mm3 (0.1-1.0); Monocytes % 8.4 % (1.7-9.3); Neutrophils # 2.9 K/mm3 (1.8-7.8); Neutrophils % 71.2 % (37.0-80.0); Platelet Count 139 K/mm3 (142-424); Red Blood Count 5.21 M/mm3 (4.60-6.20); Red Cell Distribution Width 14.2 % (11.5-17.5); White Blood Count 4.1 K/mm3 (4.8-10.8)
[2021-07-07 19:08] LABS: Coronavirus 19 IgG Antibody Negative (Negative); Coronavirus 19 IgM Antibody Negative (Negative)
[2021-07-08 04:33] LABS: Coronavirus 19, PCR Detected (NotDetected)
== END ==
PROVIDERS: PCP Family Medicine; Visit Provider Family Medicine
DX: Z20.822 Contact with and (suspected) exposure to COVID-19 (principal); U07.1 COVID-19
CPT/HCPCS: 71045; 85025; 86328; 87581; 87633; 87798

== ENCOUNTER → 2022-09-22 07:39 | Outpatient (CLI) | payer BC, SELFPAY ==
--- NOTE | 2022-09-22 07:46 | XR_ITS ---
FINAL REPORT CLINICAL HISTORY: COVID TESTING, productive cough for several days COMPARISON: 07/07/2021 FINDINGS: Two views of the chest were obtained. The heart size and pulmonary vascularity are within normal limits. The mediastinum is normal. No acute pulmonary abnormality is identified. There is no pneumothorax. There are several chronic left lateral rib fractures. IMPRESSION: No active cardiopulmonary disease. Reviewed, Interpreted and Dictated by Matt Anderson III, MD Transcribed by Keesha Shafre Authenticated and [facility]
[2022-09-22 08:07] LABS: Coronavirus 19, PCR Not Detected (NotDetected); Influenza A, PCR Not Detected (NotDetected); Influenza B, PCR Not Detected (NotDetected)
[2022-09-22 08:11] LABS: Basophils # 0.1 K/mm3 (0-0.2); Basophils % 0.5 % (0.1-2.0); Eosinophils # 0.1 K/mm3 (0.0-0.4); Eosinophils % 1.3 % (0.1-12.0); Hematocrit 51.7 % (42.0-52.0); Hemoglobin 16.4 g/dL (14.1-18.0); Lymphocytes # 0.7 K/mm3 (0.7-4.5); Lymphocytes % 7.1 % (10-50); Mean Corpuscular HGB Conc 31.7 g/dL (31.8-35.4); Mean Corpuscular Volume 97.9 fl (80-94); Mean Platelet Volume 8.5 fl (7.4-10.4); Monocytes # 0.8 K/mm3 (0.1-1.0); Monocytes % 8.5 % (1.7-9.3); Neutrophils # 8.1 K/mm3 (1.8-7.8); Neutrophils % 82.7 % (37.0-80.0); Platelet Count 150 K/mm3 (142-424); Red Blood Count 5.28 M/mm3 (4.60-6.20); White Blood Count 9.8 K/mm3 (4.8-10.8)
== END ==
PROVIDERS: PCP Family Medicine; Visit Provider Family Medicine
DX: R05.9 Cough, unspecified (principal)
CPT/HCPCS: 71046; 85025; C9803; U0003; U0005

== ENCOUNTER 2024-06-09 20:30 | Inpatient (IN) | payer MEDICARE, OTHER, SELFPAY ==
[2024-06-09 20:31] VITALS: BP 198/119; PULSE 105; RESP 20; TEMP 36.4; O2SAT 98; BMI 36.5
[2024-06-09 20:41] VITALS: BP 198/119; PULSE 103; RESP 18; TEMP 36.4; O2SAT 97
[2024-06-09] MEDS: KETOROLAC 30MG/ML VIAL 15 MG IV (20:51)
[2024-06-09] MEDS: MORPHINE 4MG/ML SYRINGE 4 MG IV (20:51)
[2024-06-09] MEDS: ONDANSETRON 4MG/2ML VIAL 4 MG IV (20:51)
[2024-06-09] MEDS: LACTATED RINGERS 1000ML 1,000 ML 999 ML IV ×2 (20:52→22:35)
--- NOTE | 2024-06-09 20:53 | CT_ITS ---
PROCEDURE INFORMATION: Exam: CT Abdomen And Pelvis Without Contrast Exam date and time: 06/09/2024 9:31 PM Age: 69 years old Clinical indication: Abdominal pain; Additional info: R flank pain TECHNIQUE: Imaging protocol: Computed tomography of the abdomen and pelvis without contrast. Radiation optimization: All CT scans at this facility use at least one of these dose optimization techniques: automated exposure control; mA and/or kV adjustment per patient size (includes targeted exams where dose is matched to clinical indication); or iterative reconstruction. COMPARISON: CT ABDOMEN PELVIS WO CON 11/19/2019 2:13 AM FINDINGS: Lungs: Lung bases are clear. Coronary arteries: Moderate coronary artery calcifications. Esophagus: Distal esophagus appears normal. Liver: Liver appears normal. Previously demonstrated liver lesions not seen on noncontrast study. Gallbladder and biliary ducts: Normal. No calcified stones. No ductal dilation. Pancreas: Pancreas appears normal. Spleen: Spleen appears normal. Adrenal glands: Stable small right adrenal nodule measuring 12 mm image 3/39; similar to the prior exam. Mild thickening of the left adrenal gland. Kidneys and ureters: Severe right hydro ureteral nephrosis. Extensive perinephric infiltration. There is a 6 mm nonobstructing right renal stone. Slight hyperdensity anterior right kidney image 3/64; along with mid high density lesion image 3/71 as well;possible milk of calcium cyst. Obstructing right mid ureteral calculus measuring 7.3 mm image 3/87. Moderate left hydroureteronephrosis. Obstructing left mid ureteral stone measuring 8.5 mm image 3/69. Small nonobstructing stone left upper ureter image 3/59. Multiple nonobstructing stones left kidney and left renal cyst; similar to the prior exam. Stomach and bowel: Stomach distended with fluid and debris. Nonspecific bowel gas pattern. Normal appendix. Appendix: See Stomach and bowel finding. Intraperitoneal space: Unremarkable. No free air. No significant fluid collection. Vasculature: The aorta is normal. Lymph nodes: No free air or fluid or adenopathy. No abdominal adenopathy. Urinary bladder: Bladder contour is normal. Reproductive: Unremarkable as visualized. Bones/joints: Interposition graft L4-L5. Pedicle screws L4 and L5. No hardware failure. No fracture or bone destruction. Soft tissues: Unremarkable. IMPRESSION: 1. No free air or fluid or adenopathy. 2. Severe right hydro ureteral nephrosis. Extensive perinephric infiltration. 3. There is a 6 mm nonobstructing right renal stone. 4. Slight hyperdensity anterior right kidney image /64; along with mid high density lesion image / as well;possible milk of calcium cyst ultrasound may be helpful. 5. Obstructing right mid ureteral calculus measuring 7.3 mm image . 6. Moderate left hydroureteronephrosis. 7. Obstructing left mid ureteral stone measuring 8.5 mm image . 8. Small nonobstructing stone left upper ureter image . 9. Multiple nonobstructing stones left kidney and left renal cyst; similar to the prior exam. 10. Other (less critical/noncritical/incidental) findings as above; please refer to the body of report for further details. COMMENTS: Consistent with the [employer]'s Incidental Findings Committee white paper (J Am Sivan Radiol 2018): Any incidental renal lesion less than 1 cm or classified as too small to characterize, or any incidental cystic renal lesion characterized as simple-appearing, is likely benign. No follow-up imaging is recommended for these lesions per consensus recommendations based on imaging criteria.
--- OUTSIDE RECORDS SUMMARY | 2024-06-09 20:59 | XMS_ITS ---
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 Name Role Phone CRISTIAN RASHEED, MARYANNE Bone Unavailable [phone] Maru RASHEED, Moo Alcala Unavailable Shantal RASHEED, Veda Cox Unavailable [phone] Reason for Referral Date Encounter Description Provider Reason for Referral 08/31/21 Follow Up Moo Mahoney MD Referral To Physician 05/28/21 Post Op Moo Mahoney MD Referral To Physician - for elevated blood pressure 04/15/21 Post Op Moo Mahoney MD Referral To Physician - for elevated blood pressure 03/02/21 Follow Up Moo Mahoney MD Referral To Physician - see pcp for bp 02/10/21 Follow Up Nabeel Alvarado MD Referral To Physician - see pcp for bp 01/05/21 Follow Up Moo Mahoney MD Referral To Physician - see pcp for bp Problems Includes: Active, inactive, and resolved Problems All Visits Onset Date Resolved Date Provider Condition S tatus Midback Pain 11/19/2019 Moo Mahoney MD Acti ve Last Documented On 0 1:17PM ; [facility] Lower Back Pain 10/27/2017 Jeremias bone PA-C Active Last Documented On 4 8:46AM ; [facility] Lower Back Pain 10/27/2017 Jeremias bone PA-C Inactive Last Documented On 4 8:46AM ; [facility] Arthralgia Knee / Patella / Tibia / Fibula 12/22/2015 Jonathan Mae MD Active Last Documented On 6 9:00AM ; [facility] Note: Unchanged Plan of Treatment Findings Encounter Date Patient screened for future fall risk: documentation of any fall with injury in past year SECOND OPINION with Jeremias Miller PA-C 05/15/2024 Last Documented On 4 1:12PM ; [facility] Future Appointments Date Time Location Venu hansel IN HOUSE REFERRAL 06/21/2024 8:30AM [facility] Jorge Silver MD Last Documented On 4 9:49AM ; [facility] Instructions to patient Intervention and counseling on cessation of tobacco use Last Documented On 1 8:30AM ; [facility] Instructions for patient see pcp for blood pressure Last Documented On 1 10:46AM ; [facility] Intervention and counseling on cessation of tobacco use Last Documented On 1 10:46AM ; [facility] Instructions for patient see pcp for blood pressure Last Documented On 1 9:05AM ; [facility] Intervention and counseling on cessation of tobacco use Last Documented On 1 9:05AM ; [facility] Instructions for patient see pcp for blood pressure Last Documented On 1 8:22AM ; [facility] Intervention and counseling on cessation of tobacco use Last Documented On 1 8:22AM ; [facility] Instructions for patient see pcp for blood pressure Last Documented On 1 9:31AM ; [facility] Intervention and counseling on cessation of tobacco use Last Documented On 1 9:31AM ; [facility] Instructions for patient see pcp for blood pressure Last Documented On 1 10:06AM ; [facility] Intervention and counseling on cessation of tobacco use Last Documented On 1 10:22AM ; [facility] Instructions for patient see pcp for blood pressure Last Documented On 0 1:02PM ; [facility] Instructions for patient see pcp for blood pressure Last Documented On 8 8:20AM ; [facility] Instructions for patient see pcp for blood pressure Last Documented On 8 9:37AM ; [facility] Instructions for patient see pcp for blood pressure Last Documented On 7 8:50AM ; [facility] Instructions for patient see pcp for blood pressure Last Documented On 7 8:37AM ; [facility] Intervention and counseling on cessation of tobacco use Last Documented On 7 8:37AM ; [facility] Instructions for patient see pcp for blood pressure Last Documented On 7 8:35AM ; [facility] Intervention and counseling on cessation of tobacco use Last Documented On 7 8:35AM ; [facility] Instructions for patient see pcp for blood pressure Last Documented On 7 9:57AM ; [facility] Intervention and counseling on cessation of tobacco use Last Documented On 7 9:57AM ; [facility] Instructions for patient see pcp for blood pressure Last Documented On 7 8:35AM ; [facility] Intervention and counseling on cessation of tobacco use Last Documented On 7 8:35AM ; [facility] Instructions for patient see pcp for blood pressure Last Documented On 7 8:35AM ; [facility] Intervention and counseling on cessation of tobacco use Last Documented On 7 8:35AM ; [facility] Instructions for patient see pcp for blood pressure Last Documented On 7 8:48AM ; [facility] Intervention and counseling on cessation of tobacco use Last Documented On 7 8:48AM ; [facility] Instructions for patient see pcp for blood pressure Last Documented On 7 8:23AM ; [facility] Intervention and counseling on cessation of tobacco use Last Documented On 7 8:23AM ; [facility] Instructions for patient see pcp for blood pressure Last Documented On 6 8:27AM ; [facility] Intervention and counseling on cessation of tobacco use Last Documented On 6 8:28AM ; [facility] Instructions for patient see pcp for blood pressure Last Documented On 6 9:27AM ; [facility] Intervention and counseling on cessation of tobacco use Last Documented On 6 9:27AM ; [facility] Instructions for patient see pcp for blood pressure Last Documented On 6 8:28AM ; [facility] Intervention and counseling on cessation of tobacco use Last Documented On 6 8:28AM ; [facility] Instructions for patient see pcp for blood pressure Last Documented On 6 1:23PM ; [facility] Intervention and counseling on cessation of tobacco use Last Documented On 6 1:23PM ; [facility] Instructions for patient see pcp for blood pressure Last Documented On 6 3:19PM ; [facility] Intervention and counseling on cessation of tobacco use Last Documented On 6 3:19PM ; [facility] Instructions for patient see pcp for blood pressure Last Documented On 6 9:23AM ; [facility] Intervention and counseling on cessation of tobacco use Last Documented On 6 9:21AM ; [facility] Intervention and counseling on cessation of tobacco use Last Documented On 6 8:31AM ; [facility] Instructions for patient see pcp for BP Last Documented On 6 8:52AM ; [facility] Intervention and counseling on cessation of tobacco use Last Documented On 6 8:52AM ; [facility] Instructions for patient see pcp for BP Last Documented On 6 9:25AM ; [facility] Intervention and counseling on cessation of tobacco use Last Documented On 6 9:25AM ; [facility] Education and Decision Aids were provided during visit for: Health seminar on smoking ce ssation Last Documented On 7 8:37AM ; [facility] Health seminar on smoking ce ssation Last Documented On 7 8:35AM ; [facility] Health seminar on smoking ce ssation Last Documented On 7 9:57AM ; [facility] Health seminar on smoking ce ssation Last Documented On 7 8:35AM ; [facility] Health seminar on smoking ce ssation Last Documented On 7 8:35AM ; [facility] Health seminar on smoking ce ssation Last Documented On 7 8:48AM ; [facility] Health seminar on smoking ce ssation Last Documented On 7 8:23AM ; [facility] Health seminar on smoking ce ssation Last Documented On 6 8:28AM ; [facility] Health seminar on smoking ce ssation Last Documented On 6 8:52AM ; [facility] Health seminar on smoking ce ssation Last Documented On 6 9:25AM ; [facility] Assessments Includes: Assessments for all patient encounters Findings Encounter Date No previous treatment. Follow Up with Moo kwan MD 03/02/2021 Last Documented On 1 1:47PM ; [facility] Instructions Includes: Instructions for all patient encounters Instructions to patient Intervention and counseling on cessation of tobacco use Last Documented On 1 8:30AM ; [facility] Instructions for patient see pcp for blood pressure Last Documented On 1 10:46AM ; [facility] Intervention and counseling on cessation of tobacco use Last Documented On 1 10:46AM ; [facility] Instructions for patient see pcp for blood pressure Last Documented On 1 9:05AM ; [facility] Intervention and counseling on cessation of tobacco use Last Documented On 1 9:05AM ; [facility] Instructions for patient see pcp for blood pressure Last Documented On 1 8:22AM ; [facility] Intervention and counseling on cessation of tobacco use Last Documented On 1 8:22AM ; [facility] Instructions for patient see pcp for blood pressure Last Documented On 1 9:31AM ; [facility] Intervention and counseling on cessation of tobacco use Last Documented On 1 9:31AM ; [facility] Instructions for patient see pcp for blood pressure Last Documented On 1 10:06AM ; [facility] Intervention and counseling on cessation of tobacco use Last Documented On 1 10:22AM ; [facility] Instructions for patient see pcp for blood pressure Last Documented On 0 1:02PM ; [facility] Instructions for patient see pcp for blood pressure Last Documented On 8 8:20AM ; [facility] Instructions for patient see pcp for blood pressure Last Documented On 8 9:37AM ; [facility] Instructions for patient see pcp for blood pressure Last Documented On 7 8:50AM ; [facility] Instructions for patient see pcp for blood pressure Last Documented On 7 8:37AM ; [facility] Intervention and counseling on cessation of tobacco use Last Documented On 7 8:37AM ; [facility] Instructions for patient see pcp for blood pressure Last Documented On 7 8:35AM ; [facility] Intervention and counseling on cessation of tobacco use Last Documented On 7 8:35AM ; [facility] Instructions for patient see pcp for blood pressure Last Documented On 7 9:57AM ; [facility] Intervention and counseling on cessation of tobacco use Last Documented On 7 9:57AM ; [facility] Instructions for patient see pcp for blood pressure Last Documented On 7 8:35AM ; [facility] Intervention and counseling on cessation of tobacco use Last Documented On 7 8:35AM ; [facility] Instructions for patient see pcp for blood pressure Last Documented On 7 8:35AM ; [facility] Intervention and counseling on cessation of tobacco use Last Documented On 7 8:35AM ; [facility] Instructions for patient see pcp for blood pressure Last Documented On 7 8:48AM ; [facility] Intervention and counseling on cessation of tobacco use Last Documented On 7 8:48AM ; [facility] Instructions for patient see pcp for blood pressure Last Documented On 7 8:23AM ; [facility] Intervention and counseling on cessation of tobacco use Last Documented On 7 8:23AM ; [facility] Instructions for patient see pcp for blood pressure Last Documented On 6 8:27AM ; [facility] Intervention and counseling on cessation of tobacco use Last Documented On 6 8:28AM ; [facility] Instructions for patient see pcp for blood pressure Last Documented On 6 9:27AM ; [facility] Intervention and counseling on cessation of tobacco use Last Documented On 6 9:27AM ; [facility] Instructions for patient see pcp for blood pressure Last Documented On 6 8:28AM ; [facility] Intervention and counseling on cessation of tobacco use Last Documented On 6 8:28AM ; [facility] Instructions for patient see pcp for blood pressure Last Documented On 6 1:23PM ; [facility] Intervention and counseling on cessation of tobacco use Last Documented On 6 1:23PM ; [facility] Instructions for patient see pcp for blood pressure Last Documented On 6 3:19PM ; [facility] Intervention and counseling on cessation of tobacco use Last Documented On 6 3:19PM ; [facility] Instructions for patient see pcp for blood pressure Last Documented On 6 9:23AM ; [facility] Intervention and counseling on cessation of tobacco use Last Documented On 6 9:21AM ; [facility] Intervention and counseling on cessation of tobacco use Last Documented On 6 8:31AM ; [facility] Instructions for patient see pcp for BP Last Documented On 6 8:52AM ; [facility] Intervention and counseling on cessation of tobacco use Last Documented On 6 8:52AM ; [facility] Instructions for patient see pcp for BP Last Documented On 6 9:25AM ; [facility] Intervention and counseling on cessation of tobacco use Last Documented On 6 9:25AM ; [facility] Education and Decision Aids were provided during visit for: Health seminar on smoking ce ssation Last Documented On 7 8:37AM ; [facility] Health seminar on smoking ce ssation Last Documented On 7 8:35AM ; [facility] Health seminar on smoking ce ssation Last Documented On 7 9:57AM ; [facility] Health seminar on smoking ce ssation Last Documented On 7 8:35AM ; [facility] Health seminar on smoking ce ssation Last Documented On 7 8:35AM ; [facility] Health seminar on smoking ce ssation Last Documented On 7 8:48AM ; [facility] Health seminar on smoking ce ssation Last Documented On 7 8:23AM ; [facility] Health seminar on smoking ce ssation Last Documented On 6 8:28AM ; [facility] Health seminar on smoking ce ssation Last Documented On 6 8:52AM ; [facility] Health seminar on smoking ce ssation Last Documented On 6 9:25AM ; [facility] Medical Equipment - Implanted Devices Includes: Current and historical Devices No Medical Equipment Recorded Medications Includes: Current and historical Medications Current Medications (continue as prescribed) Famciclovir 500 MG Oral Tablet 05/15/2024 Provider: Diagnosis: Last Documented On 4 10:27AM By Colleen Velasquez ; [facility] Testosterone Enanthate 200 MG/ML Intramuscular Solutio n 05/15/2024 Provider: Diagnosis: Last Documented On 4 10:26AM By Colleen Velasquez ; [facility] EQL Natural Zinc 50 MG Oral Tablet 05/15/2024 Provid er: Diagnosis: Last Documented On 4 10:26AM By Colleen Velasquez ; [facility] EQL Vitamin D3 25 MCG (1000 UT) Oral Capsule, conventi onal 05/15/2024 Provider: Diagnosis: Last Documented On 4 10:25AM By Colleen Velasquez ; [facility] Vitamin C 500 MG Oral Tablet 05/15/2024 Provider : Diagnosis: Last Documented On 4 10:25AM By Colleen Velasquez ; [facility] Aspirin 81 MG Oral Tablet, chewable 05/15/2024 Provi hansel: Diagnosis: Last Documented On 4 10:24AM By Colleen Velasquez ; [facility] Anastrozole 1 MG Oral Tablet 05/15/2024 Provider: Diagnosis: Last Documented On 4 10:27AM By Colleen Velasquez ; [facility] Mounjaro 7.5 MG/0.5ML Subcutaneous Solution Pen-inject or 03/30/2024 Provider: Diagnosis: Last Documented On 4 8:47AM By Colleen Velasquez ; [facility] Tamsulosin HCl 0.4 MG Oral C apsule, conventional 03/27/2024 Provider: Veda Murguia MD Diagnosis: Last Documented On 4 8:47AM By Colleen Velasquez ; [facility] Ezetimibe 10 MG Oral Tablet 03/21/2024 Provider: Davidson Gracia MD Diagnosis: Last Documented On 4 8:47AM By Colleen Velasquez ; [facility] NIFEdipine ER Osmotic Releas e 60 MG Oral Tablet, extended-release 24 hour 03/19/2024 Provider: Max Murguia MD Diagnosis: Last Documented On 4 8:47AM By Colleen Velasquez ; [facility] Carvedilol 3.125 MG Oral Tablet 02/27/2024 Provider: Veda Murguia MD Diagnosis: Last Documented On 4 8:47AM By Colleen Velasquez ; [facility] metFORMIN HCl 1000 MG Oral Tablet 02/27/2024 Provide r: Diagnosis: Last Documented On 4 8:47AM By Colleen Velasquez ; [facility] Atorvastatin Calcium 40 MG Oral Tablet 01/16/2024 Pr ovider: Diagnosis: Last Documented On 4 8:47AM By Colleen Velasquez ; [facility] Past Medications on file Neurontin 100 MG Oral Capsule 04/15/2021 - 05/01/2021 Provider: Moo Mahoney MD Diagnosis: three times a day up to 3 ti mes a day for leg pain and cramping Last Documented On 1 10:15AM By Dr. Mahoney ; [facility] Medrol 4 MG Oral Tablet Ther apy Pack 04/15/2021 - 05/15/2021 Provider: Moo Mahoney MD Diagnosis: take as directed Last Documented On 1 10:06AM By Dr. Mahoney ; [facility] Clopidogrel Bisulfate 75 MG Oral Tablet 01/16/2021 - 05/15/2024 Provider: Francia russell PA-C Diagnosis: Last Documented On 4 8:46AM By Colleen Velasquez ; [facility] metFORMIN HCl 1000 MG Oral Tablet 01/08/2021 - 024 Provider: Diagnosis: Last Documented On 4 8:46AM By Colleen Velasquez ; [facility] Lisinopril 10 MG Oral Tablet 01/08/2021 - 05/15/2024 Candelaria buenoder: Diagnosis: Last Documented On 4 8:46AM By Colleen Velasquez ; [facility] Atorvastatin Calcium 40 MG Oral Tablet 12/16/2020 - Provider: Diagnosis: Last Documented On 4 8:46AM By Colleen Velasquez ; [facility] Clopidogrel Bisulfate 75 MG Oral Tablet 12/16/2020 - 0 03/02/2021 Provider: Diagnosis: Last Documented On 1 9:01AM By Trudy Gomez ; [facility] Sildenafil Citrate 100 MG Or al Tablet 12/04/2020 - 05/15/2024 Provider: LOBO LYNCH MD Diagnosis: Last Documented On 4 8:46AM By Colleen Velasquez ; [facility] NIFEdipine ER Osmotic Releas e 60 MG Oral Tablet Extended Release 24 Hour 08/20/2020 - 05/15/2024 Provider: Diagnosis: Last Documented On 4 8:46AM By Colleen Velasquez ; [facility] HM Aspirin EC Low Dose 81 MG Oral Tablet Delayed Release 07/23/2020 - 05/15/2024 Provider: Diagnosis: Last Documented On 4 8:46AM By Colleen Velasquez ; [facility] Carvedilol 12.5 MG Oral Tablet 11/19/2019 - 05/15/2024 Provider: Diagnosis: Last Documented On 4 8:46AM By Colleen Velasquez ; [facility] Lisinopril 10 MG Oral Tablet 11/19/2019 - 03/04/2021 P rovider: Diagnosis: Last Documented On 1 1:02PM By Trudy Gomez ; [facility] Cyclobenzaprine HCl 10 MG Or al Tablet 11/19/2019 - 12/09/2019 Provider: Moo Mahoney MD Diagnosis: 1 every bedtime-prn Last Documented On 0 1:35PM By Tati Velez ; [facility] Aspirin 81MG Oral Tablet Delayed Release 10/27/2017 - 11/19/2019 Provider: Diagnosis: Last Documented On 0 1:19PM By Dr. Mahoney ; [facility] Plavix 75MG Oral Tablet 10/27/2017 - 11/19/2019 Provid er: Diagnosis: Last Documented On 0 1:19PM By Dr. Mahoney ; [facility] Aleve 220 MG Capsule 12/23/2015 - 11/19/2019 Provider: Diagnosis: Last Documented On 0 1:20PM By Dr. Mahoney ; [facility] Tylenol 325 MG Tablet 12/23/2015 - 11/19/2019 Provider : Diagnosis: Last Documented On 0 1:19PM By Dr. Mahoney ; [facility] Ibuprofen 200 MG Tablet 12/23/2015 - 11/19/2019 Provid er: Diagnosis: Last Documented On 0 1:20PM By Dr. Mahoney ; [facility] Famciclovir 125 MG Tablet 12/23/2015 - 11/19/2019 Prov ider: Diagnosis: Last Documented On 0 1:20PM By Dr. Mahoney ; [facility] MetFORMIN HCl 500 MG Tablet 12/23/2015 - 03/02/2021 Pr ovider: Diagnosis: Last Documented On 9:24PM By Tati Velez ; [facility] Medications Administered Includes: Administered Medications in patient's chart No Administered Medications Recorded Vital Signs Includes: Vital Signs from 06/09/2023 through 06/09/2024 Vital Name 05/15/2024 11:42A Height (in) 67 Weight (lb) 130 Body Mass Index 20.4 Body Surface Area 1.7 Last Documented: On 05/15/2024 11:43A M ; [facility] Results Includes: Results from 06/09/2023 through 06/09/2024 No Results Recorded For Specified Dates History of Present Illness History of Present Illness not supported for this document type No History of Present Illness Recorded Social History Description Last Updated No caffeine use 05/15/2024 Last Documented On 4 1:12PM ; [facility] No recent change in diet 05/15/2024 Last Documented On 4 1:12PM ; [facility] Not a current smoker. 05/15/2024 Last Documented On 4 1:12PM ; [facility] Not exercising regularly 05/15/2024 Last Documented On 4 1:12PM ; [facility] Not using alcohol 05/15/2024 Last Documented On 4 1:12PM ; [facility] Not using drugs 05/15/2024 Last Documented On 4 1:12PM ; [facility] Yes, current smoker. 01/05/2021 Last Documented On 1 3:48PM ; [facility] Smoker 01/05/2021 Last Documented On 1 3:48PM ; [facility] No tobacco use 10/27/2017 Last Documented On 7 10:43AM ; [facility] Smoking status : Former smoker 7 Last Documented On 7 10:43AM ; [facility] Not a current smoker 10/27/2017 Last Documented On 7 10:43AM ; [facility] No recent change in diet 12/23/2015 Last Documented On 6 3:14PM ; [facility] Procedures and Surgical History Includes: Procedures from 06/09/2023 through 06/09/2024 Procedures Code Diagnosis Performing Provider Service Location Service Date X-RAY EXAM OF LOWER SPINE 2-3 VIEWS LIMITED 76233 Other low back pain Jeremias Miller PA-C [facility] 05/15/2024 Last Documented On 4 5:57AM ; [facility] Surgical History Last Updated History of total knee arthroplasty 12/23 Last Documented On 6 3:14PM ; [facility] Medical History Includes: Medical History in patient's chart Description Last Updated Back surgery 03/31/2021 L4-5 Posterior Lumbar Decompression and Fusion @ [facility] 05/28/2021 Last Documented On 1 3:56PM ; [facility] kidney stones 05/28/2021 Last Documented On 1 3:56PM ; [facility] Past Surgical History: stents - 1995 997 ~heart cath 05/28/2021 Last Documented On 1 3:56PM ; [facility] Arthritis 01/05/2021 Last Documented On 1 3:48PM ; [facility] History of Heart Attack / Stroke 01/05/ 021 Last Documented On 1 3:48PM ; [facility] [facility] History of heart disease 01/05/2021 Last Documented On 1 3:48PM ; [facility] Hypertension 01/05/2021 Last Documented On 1 3:48PM ; [facility] No recent immunization for flu 1 Last Documented On 1 3:48PM ; [facility] No recent immunization for pneumococcal pneumonia 01/05/2021 Last Documented On 1 3:48PM ; [facility] History of diabetes mellitus 12/23/2015 Last Documented On 6 3:14PM ; [facility] Intermittent hypertension 12/23/2015 Last Documented On 6 3:14PM ; [facility] Kidney disease 12/23/2015 Last Documented On 6 3:14PM ; [facility] Liver disease 12/23/2015 Last Documented On 6 3:14PM ; [facility] Family History Includes: Family History in patient's chart Description Last Updated No significant family history 05/15/2024 Last Documented On 4 1:12PM ; [facility] Diabetes mellitus 01/05/2021 Last Documented On 1 3:48PM ; [facility] Maternal history of diabetes mellitus Last Documented On 7 10:43AM ; [facility] Maternal history of family history of he art disease 01/01/2016 Last Documented On 6 4:57PM ; [facility] Maternal history of family history of ca ncer paternal 01/01/2016 Last Documented On 6 4:57PM ; [facility] Maternal history of hypertension 016 Last Documented On 6 4:57PM ; [facility] Family history of cancer 12/23/2015 Last Documented On 6 3:14PM ; [facility] Family history of diabetes mellitus 12/02 Last Documented On 6 3:14PM ; [facility] Family history of heart disease 12/23/19 16 Last Documented On 6 3:14PM ; [facility] Family history of hypertension 6 Last Documented On 6 3:14PM ; [facility] Review of Systems Review of Systems not supported for this document type No Review of Systems Recorded Mental Status Description No anxiety Functional Status No Functional Status Recorded Physical Exam Physical Exam not supported for this document type No Physical Exam Recorded Allergies Includes: Active, inactive, and resolved Allergies No Known Allergies Encounters Includes: Encounters from 06/09/2023 through 06/09/2024 Encounter Provider Location Date Check-In Time Check-Out Time Diagnosis SECOND OPINION Jeremias Miller PA-C [facility] 05/15/20 24 8:58AM 9:44AM Insurance Includes: Active Insurance Policies Plan Name Member ID Group # Subscriber Relationship Effect jay Dates 1 - Medicare Part B [facility] [id number] Gordy Stiles 10/31/2023 - Unknown 2 - [employer] [place] [id number] Gordy Stiles Clinical Notes Includes: Signed Clinical Notes starting from 10/14/2022 * Progress note Date Encounter Last Documented by 05/15/2024 SECOND OPINION Last documented on 05/17/2024; 1:12 PM, Jeremias Miller PA-C; [facility] Active Problems & Conditions - Arthralgia Knee / Patella / Tibia / Fibula - Lower Back Pain - Midback Pain Chief Complaint The Chief Complaint is: Low back pain. Referred Here Referred by Self. History of Present Illness Gordy Parry is a 68 year old male. - Allergy list reviewed - Problem list reviewed - Medication list reviewed - Pain is occasional (25% of the time) - Yes, previous treatment. - - Review of medications documented Patient is here chief complaint low back pain. He is undergone previous L4-L5 lumbar fusion with Dr. Mahoney many years ago. He said he is getting some pain in his low back and little bit. He is pretty very active. Said he has been thinking about getting a left knee replacement. He says he walks with a limp favoring left knee and he is says goal today is do get back with therapy and decide if he should have any further surgery in his back prior to getting his left knee replaced. Current Medication - Anastrozole 1 MG Oral Tablet take as directed 0 days, 0 refills - Aspirin 81 MG Oral Tablet, chewable take as directed 0 days, 0 refills - Atorvastatin Calcium 40 MG Oral Tablet 90 days, 0 refills - Carvedilol 3.125 MG Oral Tablet 90 days, 0 refills - [facility] Vitamin C 500 MG Oral Tablet take as directed 0 days, 0 refills - EQL Natural Zinc 50 MG Oral Tablet take as directed 0 days, 0 refills - EQL Vitamin D3 25 MCG (1000 UT) Oral Capsule, conventional take as directed 0 days, 0 refills - Ezetimibe 10 MG Oral Tablet 90 days, 0 refills - Famciclovir 500 MG Oral Tablet take as directed 0 days, 0 refills - metFORMIN HCl 1000 MG Oral Tablet 90 days, 0 refills - Mounjaro 7.5 MG/0.5ML Subcutaneous Solution Pen-injector 28 days, 0 refills - NIFEdipine ER Osmotic Release 60 MG Oral Tablet, extended-release 24 hour 90 days, 0 refills - Tamsulosin HCl 0.4 MG Oral Capsule, conventional 90 days, 0 refills - Testosterone Enanthate 200 MG/ML Intramuscular Solution use as directed 0 days, 0 refills Social History Not a current smoker. Current diet: No recent change in diet. Caffeine use: No caffeine use. Alcohol: Not using alcohol. Drug Use: Not using drugs. Habits: Not exercising regularly. Allergies - No Known Allergies Family History No significant family history Review Of Systems Systemic: Not feeling tired, no recent weight loss, and no recent weight gain. Head: No headache and no sinus pain. Eyes: No vision problems, no Cataracts, no Glasses/Contacts, and no Glaucoma. Otolaryngeal: No hearing loss and no tinnitus. Cardiovascular: No chest pain or discomfort, no palpitations, no Hypertension, and no High Cholesterol. Pulmonary: No daytime asthma symptoms and no chronic cough. No wheezing. Gastrointestinal: No heartburn and no abdominal pain. No Indigestion, no Peptic Ulcer, no GI Stomach Bleed, no Ulcers, and no Acid Reflux. Endocrine: No hot flashes, no muscle weakness, no Diabetes, no Hypothyroid, and no Hyperthyroid. Hematologic: No easy bleeding, no tendency for easy bruising, and no Anemia. Musculoskeletal: No Arthritis and no lower back pain. No soft tissue swelling and no localized joint pain. Neurological: No dizziness, no convulsions, and no numbness. Psychological: No anxiety, no emotional lability, no depression, and no insomnia. Not crying for no reason. Skin: No dry skin. No Ulcers, no Scars, and no rash. Allergic and Immunologic: No complaint of seasonal allergic reaction. Physical Findings - Vitals taken 05/15/2024 11:42 am Height 67 in Weight 130 lbs Body Mass Index 20.4 kg/m2 Body Surface Area 1.7 m2 Pleasant, alert and oriented x3 Patient walks with a normal gait and no assistive device No acute distress. Non-labored respirations Normal affect, appropriate mood. Extraocular motor movements intact. Normal hearing Patient is nontender to palpation lower lumbar spine. No bruising. Negative straight leg raise test bilaterally. 5 out of 5 strength in bilateral EHL, tibialis anterior, and gastrocnemius. Responds to light touch sensation in both lower extremities. No edema of the lower extremities. Negative Homans sign bilaterally No effusion in the bilateral lower extremities. Tests 2 lumbar x-rays demonstrate L4-L5 fusion hardware stable. Mild further degenerative change 11 below at the adjacent segments but no subluxation no significant collapse. Previous Tests Imaging: X-Ray: An X-ray was performed Vaughn hip 03/28/24 @ [facility] Vaughn knee 03/28/24 @ [facility]. Available previous imaging studies were reviewed Available previous history reviewed Counseling/Education - Tobacco non-user - Use of tobacco assessment performed Plan StartCited - Low back pain, unspecified Therapy/Physical Therapy: Lumbar Instructions: See PT order attached EndCited - Patient screened for future fall risk: documentation of any fall with injury in past year Fall Risk Assessment: This patient has been identified as a fall risk. Balance/gait along with postural blood pressure, vision and home fall hazards have been assessed. Medications have been reviewed, and recommendations made with regard to contributing factors for future falls. Plan of care: Consideration of vitamin D supplementation along with balance and strength training with consideration for formal physical therapy has been discussed with the patient. Assessment: Lumbar spondylosis prior lumbar fusion. Degenerative disc disease, low back pain Plan: Given note to reestablish physical therapy work on in his back. I said that he could certainly pursue surgery for his left knee he wants referral to see Dr. Silver's group again. We will set this up for a See him back as needed Patient was seen by myself. Dictation by Jeremias Miller PA-C Notes This dictation was done with voice recognition software and may contain errors and omissions. Care Team - Veda Murguia MD - Primary Care - MARYANNE FOSTER MD - Cardiovascular Disease
--- OUTSIDE RECORDS SUMMARY | 2024-06-09 20:59 | XMS_ITS | Clinical Summary ---
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 Name Role Phone CRISTIAN RASHEED, MARYANNE Bone Unavailable [phone] Maru RASHEED, Moo Alcala Unavailable Shantal RASHEED, Veda Cox Unavailable [phone] Reason for Visit and Chief Complaint The Chief Complaint is: Low back pain Problems Includes: Problems addressed during this encounter and other active Problems Current Visit Onset Date Resolved Date Provider Conditio n Status Lower Back Pain 10/27/2017 Jeremias bone PA-C Active Last Documented On 4 8:46AM ; [facility] Lower Back Pain 10/27/2017 Jeremias bone PA-C Inactive Last Documented On 4 8:46AM ; [facility] Past Visits Onset Date Resolved Date Provider Condition Status Midback Pain 11/19/2019 Moo Mahoney MD Acti ve Last Documented On 0 1:17PM ; [facility] Arthralgia Knee / Patella / Tibia / Fibula 12/22/2015 Jonathan Mae MD Active Last Documented On 6 9:00AM ; [facility] Note: Unchanged Plan of Treatment - Patient screened for future fall risk: documentation of any fall with injury in past year - Last Documented On 05/17/2024 1:12PM ; [facility] Fall Risk Assessment: This patient has been [...] therapy has been discussed with the patient. - Last Documented On 05/17/2024 1:12PM ; [facility], [facility] Assessment: Lumbar spondylosis prior lumbar fusion. Degenerative [...] by myself. Dictation by Jeremias Miller PA-C - Last Documented On 05/17/2024 1:12PM ; [facility], [facility] Pending Tests Order Diagnosis Results Due Ordering P rovider Therapy - Physical Therapy Lumbar Low back pain, unspecified 05/15/24 Jeremias Miller PA-C Last Documented On 4 9:58AM ; [facility], [facility] Future Appointments Date Time Location [facility] IN HOUSE REFERRAL 06/21/2024 8:30AM [facility] Jorge Silver MD Last Documented On 4 9:49AM ; [facility], [facility] Assessments Includes: Assessments from this encounter No Assessments Recorded Medical Equipment - Implanted Devices Includes: Current Devices No Medical Equipment Recorded Medications Includes: Medications discussed during this encounter and other current Medications Discontinued / Stopped on this date Francia Pratt PA-C on 01/16/2021 Clopidogrel Bisulfate 75 MG Oral Tablet Provider: Francia hammond PA-C Diagnosis: Last Documented On 4 8:46AM By Colleen Quiroga [facility], [facility] metFORMIN HCl 1000 MG Oral Tablet Provide r: Diagnosis: Last Documented On 4 8:46AM By Colleen Quiroga [facility], [facility] Lisinopril 10 MG Oral Tablet Provider: Diagnosis: Last Documented On 4 8:46AM By Colleen Quiroga [facility], [facility] Atorvastatin Calcium 40 MG Oral Tablet Pr ovider: Diagnosis: Last Documented On 4 8:46AM By Colleen Quiroga [facility], [facility] Sildenafil Citrate 100 MG Oral Tablet Pro vider: LOBO LYNCH MD Diagnosis: Last Documented On 4 8:46AM By Colleen Velasquez ; [facility], [facility] NIFEdipine ER Osmotic Releas e 60 MG Oral Tablet Extended Release 24 Hour Provider: Diagnosis: Last Documented On 4 8:46AM By Colleen Velasquez ; [facility], [facility] HM Aspirin EC Low Dose 81 MG Oral Tablet Delayed Relea se Provider: Diagnosis: Last Documented On 4 8:46AM By Colleen Velasquez ; [facility] Carvedilol 12.5 MG Oral Tablet Provider: Diagnosis: Last Documented On 4 8:46AM By Colleen Velasquez ; [facility] Current Medications (continue as prescribed) Famciclovir 500 MG Oral Tablet 05/15/2024 Provider: Diagnosis: Last Documented On 4 10:27AM By Colleen Velasquez ; [facility], [facility] Testosterone Enanthate 200 MG/ML Intramuscular Solutio n 05/15/2024 Provider: Diagnosis: Last Documented On 4 10:26AM By Colleen Velasquez ; [facility], [facility] EQL Natural Zinc 50 MG Oral Tablet 05/15/2024 Provid er: Diagnosis: Last Documented On 4 10:26AM By Colleen Velasquez ; [facility], [facility] EQL Vitamin D3 25 MCG (1000 UT) Oral Capsule, conventi onal 05/15/2024 Provider: Diagnosis: Last Documented On 4 10:25AM By Colleen Velasquez ; [facility], [facility] Vitamin C 500 MG Oral Tablet 05/15/2024 Provider : Diagnosis: Last Documented On 4 10:25AM By Colleen Velasquez ; [facility], [facility] Aspirin 81 MG Oral Tablet, chewable 05/15/2024 Provi hansel: Diagnosis: Last Documented On 4 10:24AM By Colleen Velasquez ; [facility], [facility] Anastrozole 1 MG Oral Tablet 05/15/2024 Provider: Diagnosis: Last Documented On 4 10:27AM By Colleen Velasquez ; [facility], [facility] Mounjaro 7.5 MG/0.5ML Subcutaneous Solution Pen-inject or 03/30/2024 Provider: Diagnosis: Last Documented On 4 8:47AM By Colleen Velasquez ; [facility], [facility] Tamsulosin HCl 0.4 MG Oral C apsule, conventional 03/27/2024 Provider: Veda Murguia MD Diagnosis: Last Documented On 4 8:47AM By Colleen Velasquez ; [facility], [facility] Ezetimibe 10 MG Oral Tablet 03/21/2024 Provider: Davidson Gracia MD Diagnosis: Last Documented On 4 8:47AM By Colleen Velasquez ; [facility], [facility] NIFEdipine ER Osmotic Releas e 60 MG Oral Tablet, extended-release 24 hour 03/19/2024 Provider: Max Murguia MD Diagnosis: Last Documented On 4 8:47AM By Colleen Velasquez ; [facility], [facility] Carvedilol 3.125 MG Oral Tablet 02/27/2024 Provider: Veda Murguia MD Diagnosis: Last Documented On 4 8:47AM By Colleen Velasquez ; [facility] metFORMIN HCl 1000 MG Oral Tablet 02/27/2024 Provide r: Diagnosis: Last Documented On 4 8:47AM By Colleen Velasquez ; [facility], [facility] Atorvastatin Calcium 40 MG Oral Tablet 01/16/2024 Pr ovider: Diagnosis: Last Documented On 4 8:47AM By Colleen Velasquez ; [facility] Past Medications on file Neurontin 100 MG Oral Capsule 04/15/2021 - 05/01/2021 Provider: Moo Mahoney MD Diagnosis: three times a day up to 3 ti mes a day for leg pain and cramping Last Documented On 1 10:15AM By Dr. Mahoney ; [facility], [facility] Medrol 4 MG Oral Tablet Ther apy Pack 04/15/2021 - 05/15/2021 Provider: Moo Mahoney MD Diagnosis: take as directed Last Documented On 1 10:06AM By Dr. Mahoney ; [facility], [facility] Cyclobenzaprine HCl 10 MG Or al Tablet 11/19/2019 - 12/09/2019 Provider: Moo Mahoney MD Diagnosis: 1 every bedtime-prn Last Documented On 0 1:35PM By Tati Velez ; [facility], [facility] Medications Administered Includes: Administered Medications from this encounter No Administered Medications Recorded Vital Signs Includes: Vital Signs from this encounter Vital Name 05/15/2024 11:42A Height (in) 67 Weight (lb) 130 Body Mass Index 20.4 Body Surface Area 1.7 Last Documented: On 05/15/2024 11:43A M ; [facility] Results Includes: Results discussed during this encounter No Results Recorded For Specified Dates History of Present Illness Includes: History of Present Illness from this encounter VICENTA Parry is a 68 year old male. [...] prior to getting his left knee replaced. Social History Description Last Updated No caffeine use 05/15/2024 Last Documented On 4 1:12PM ; [facility] No recent change in diet 05/15/2024 Last Documented On 4 1:12PM ; [facility] Not a current smoker. 05/15/2024 Last Documented On 4 1:12PM ; [facility] Not exercising regularly 05/15/2024 Last Documented On 4 1:12PM ; [facility] Not using alcohol 05/15/2024 Last Documented On 4 1:12PM ; [facility] Not using drugs 05/15/2024 Last Documented On 4 1:12PM ; [facility] Smoking Status Unknown Procedures and Surgical History Includes: Procedures from this encounter Procedures Code Diagnosis Performing Provider Service Location Service Date X-RAY EXAM OF LOWER SPINE 2-3 VIEWS LIMITED [address] Other low back pain Jeremias Miller PA-C [facility] 05/15/2024 Last Documented On 4 5:57AM ; [facility] an X-ray was performed Vaughn hip 03/28/24 @ [facility] ~[facility] knee 03/28/24 @ [facility] [id number] Last Documented On 4 8:48AM ; [facility] Medical History Includes: Medical History addressed during this encounter No Medical History Recorded Family History Includes: Family History addressed during this encounter Description Last Updated No significant family history 05/15/2024 Last Documented On 4 1:12PM ; [facility] Review of Systems Includes: Review of Systems from this encounter Systemic: Not feeling tired, no recent weight [...] Immunologic: No complaint of seasonal allergic reaction. Mental Status Includes: Mental Status from this encounter Description No anxiety Functional Status Includes: Functional Status from this encounter No Functional Status Recorded Physical Exam Includes: Physical Exam from this encounter Allergies Includes: Active Allergies No Known Allergies Encounters Encounter Provider Location Date Check-In Time Check-Out Time Diagnosis SECOND OPINION Jeremias Miller PA-C [facility] 05/15/20 24 8:58AM 9:44AM Insurance Includes: Active Insurance Policies Plan Name Member ID Group # Subscriber Relationship Effect jay Dates 1 - Medicare Part B of [place] [id number] Gordy Parry Self 10/31/2023 - Unknown 2 - [employer] [place] [id number] Gordy Parry Self Clinical Notes Includes: Clinical Notes from this encounter * Progress note Date Encounter Last Documented by 05/15/2024 SECOND OPINION Last documented on 05/17/2024; 1:12 PM, Jeremias Miller PA-C; [facility], [facility] Active Problems & Conditions - Arthralgia Knee [...] X-ray was performed Vaughn hip 03/28/24 @ [facility] Vaughn knee 03/28/24 @ [facility]. Available previous imaging studies were reviewed Available [...]
--- OUTSIDE RECORDS SUMMARY | 2024-06-09 20:59 | XMS_ITS ---
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
--- OUTSIDE RECORDS SUMMARY | 2024-06-09 20:59 | XMS_ITS | Clinical Summary ---
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 Name Role Phone CRISTIAN RASHEED, MARYANNE Bone Unavailable [phone] Maru RASHEED, Moo Alcala Unavailable Shantal RASHEED, Veda Cox Unavailable [phone] Reason for Referral Date Encounter Description Provider Reason for Referral 05/28/21 Post Op Moo Mahoney MD Referral To Physician - for elevated blood pressure Reason for Visit and Chief Complaint The Chief Complaint is: lumbar and t-spine pain Problems Includes: Problems addressed during this encounter and other active Problems Current Visit Onset Date Resolved Date Provider Conditio n Status Lower Back Pain 10/27/2017 Jeremias bone PA-C Active Last Documented On 4 8:46AM ; [facility] Lower Back Pain 10/27/2017 Jeremias bone PA-C Inactive Last Documented On 4 8:46AM ; [facility] Past Visits Onset Date Resolved Date Provider Condition Status Midback Pain 11/19/2019 Moo Mahoney MD Acti ve Last Documented On 0 1:17PM ; [facility] Arthralgia Knee / Patella / Tibia / Fibula 12/22/2015 Jonathan aMe MD Active Last Documented On 6 9:00AM ; [facility] Note: Unchanged Plan of Treatment Patient status post lumbar decompression arthrodesis doing quite well. Showing good evidence of healing up. Patient will continue doing walking sitting standing continue to do exercises, minimizing repetitive bending and twisting impact loading preparation, for approximatelygradually increase decreasing activity level, limited by the amount of pain that is experienced. - Last Documented On 05/28/2021 3:56PM ; [facility] Future Appointments Date Time Location Provi hansel IN HOUSE REFERRAL 06/21/2024 8:30AM [facility] Jorge Silver MD Last Documented On 4 9:49AM ; [facility] Instructions to patient Instructions for patient see pcp for blood pressure Last Documented On 1 10:46AM ; [facility] Intervention and counseling on cessation of tobacco use Last Documented On 1 10:46AM ; [facility] Assessments Includes: Assessments from this encounter Findings Successful decompression arthrodesis, lumbar spine.approximately 10 weeks status post lumbar fusion - Last Documented On 05/28/2021 3:56PM ; [facility] Instructions Includes: Instructions from this encounter Instructions to patient Instructions for patient see pcp for blood pressure Last Documented On 1 10:46AM ; [facility] Intervention and counseling on cessation of tobacco use Last Documented On 1 10:46AM ; [facility] Medical Equipment - Implanted Devices Includes: Current Devices No Medical Equipment Recorded Medications Includes: Medications discussed during this encounter and other current Medications Current Medications (continue as prescribed) Famciclovir 500 MG Oral Tablet 05/15/2024 Provider: Diagnosis: Last Documented On 4 10:27AM By Colleen Velasquez ; [facility] Testosterone Enanthate 200 MG/ML Intramuscular Solutio n 05/15/2024 Provider: Diagnosis: Last Documented On 4 10:26AM By [facility], [facility] EQL Natural Zinc 50 MG Oral Tablet 05/15/2024 Provid er: Diagnosis: Last Documented On 4 10:26AM By Col[facility], [facility] EQL Vitamin D3 25 MCG (1000 UT) Oral Capsule, conventi onal 05/15/2024 Provider: Diagnosis: Last Documented On 4 10:25AM By Colleen Velasquez ; [facility] CVS Vitamin C 500 MG Oral Tablet 05/15/2024 Provider : Diagnosis: Last Documented On 4 10:25AM By Colleen Velasquez ; [facility] Aspirin 81 MG Oral Tablet, chewable 05/15/2024 Provi hansel: Diagnosis: Last Documented On 4 10:24AM By Colleen Velasquez ; [facility] Anastrozole 1 MG Oral Tablet 05/15/2024 Provider: Diagnosis: Last Documented On 4 10:27AM By Colleen Velasquez ; [facility] Mounjaro 7.5 MG/0.5ML Subcutaneous Solution Pen-inject or 03/30/2024 Provider: Diagnosis: Last Documented On 4 8:47AM By Colleen Velasquez ; [facility] Tamsulosin HCl 0.4 MG Oral C apsule, conventional 03/27/2024 Provider: Veda Murguia MD Diagnosis: Last Documented On 4 8:47AM By Colleen Velasquez ; [facility] Ezetimibe 10 MG Oral Tablet 03/21/2024 Provider: Davidson Gracia MD Diagnosis: Last Documented On 4 8:47AM By Colleen Velasquez ; [facility] NIFEdipine ER Osmotic Releas e 60 MG Oral Tablet, extended-release 24 hour 03/19/2024 Provider: Max Murguia MD Diagnosis: Last Documented On 4 8:47AM By Colleen Velasquez ; [facility] Carvedilol 3.125 MG Oral Tablet 02/27/2024 Provider: Veda Murguia MD Diagnosis: Last Documented On 4 8:47AM By Colleen Velasquez ; [facility] metFORMIN HCl 1000 MG Oral Tablet 02/27/2024 Provide r: Diagnosis: Last Documented On 4 8:47AM By Colleen Velasquez ; [facility] Atorvastatin Calcium 40 MG Oral Tablet 01/16/2024 Pr ovider: Diagnosis: Last Documented On 4 8:47AM By Colleen Velasquez ; [facility] Past Medications on file Neurontin 100 MG Oral Capsule 04/15/2021 - 05/01/2021 Provider: Moo Mahoney MD Diagnosis: three times a day up to 3 ti mes a day for leg pain and cramping Last Documented On 1 10:15AM By Dr. Mahoney ; [facility] Medrol 4 MG Oral Tablet Ther apy Pack 04/15/2021 - 05/15/2021 Provider: Moo Mahoney MD Diagnosis: take as directed Last Documented On 1 10:06AM By Dr. Mahoney ; [facility] Cyclobenzaprine HCl 10 MG Or al Tablet 11/19/2019 - 12/09/2019 Provider: Moo Mahoney MD Diagnosis: 1 every bedtime-prn Last Documented On 0 1:35PM By Tati Velez ; [facility] Medications Administered Includes: Administered Medications from this encounter No Administered Medications Recorded Vital Signs Includes: Vital Signs from this encounter Vital Name 05/28/2021 11:59A Blood Pressure Sitting (mmHg) 146/92 Pulse Rate-Sitting (bpm) 65 Height (in) 68 Weight (lb) 190 Body Mass Index (kg/m2) 28.9 Body Surface Area (m2) 2.0 Note: rd Last Documented: On 05/28/2021 12:00P M ; [facility] Results Includes: Results discussed during this encounter No Results Recorded For Specified Dates History of Present Illness Includes: History of Present Illness from this encounter VICENTA Parry is a 66 year old male. - Allergy list reviewed - Problem list reviewed - Medication reconciliation performed - Medication list reviewed reviewed with patient - With patient Patient is approximately 10weeks status post lumbar decompression arthrodesis. The patient's symptoms are well under control. There is no shortness of breath, no leg pain no numbness or weakness. Patient is very active, able to sit stand and walk sleep through the night. No longer taking pain medication. Severe preoperative pain has resolved, the patient is independent, able to ambulate and care for themselves. Social History Description Last Updated Caffeine use 05/15/2024 Last Documented On 1 10:46AM ; [facility] Not exercising regularly 05/15/2024 Last Documented On 1 10:46AM ; [facility] Not using alcohol 05/15/2024 Last Documented On 1 10:46AM ; [facility] Not using drugs 05/15/2024 Last Documented On 1 10:46AM ; [facility] Yes, current smoker. 01/05/2021 Last Documented On 10:46AM ; [facility] Smoker 01/05/2021 Last Documented On 10:46AM ; [facility] No tobacco use 10/27/2017 Last Documented On 10:46AM ; [facility] Smoking status : Former smoker Last Documented On 10:46AM ; [facility] Not a current smoker 10/27/2017 Last Documented On 10:46AM ; [facility] No recent change in diet 12/23/2015 Last Documented On 10:46AM ; [facility], [facility] Procedures and Surgical History Includes: Procedures from this encounter Procedures Code Diagnosis Performing Provider Service L ocation Service Date intervention and counseling on cessation of tobacco use 4000F Last Documented On 10:46AM ; [facility], [facility] use of tobacco assessment performed 1000F Last Documented On 10:46AM ; [facility], [facility] referral to physician for elevated blood pressure Last Documented On 10:46AM ; [facility], [facility] Pt received screening for fall risk G8270 Last Documented On 10:46AM ; [facility], [facility] Clinical summary provided to patient Last Documented On 10:46AM ; [facility], [facility] an X-ray was performed 12535 Last Documented On 10:46AM ; [facility], [facility] history of a CT scan was performed 27720 Last Documented On 10:46AM ; [facility], [facility] an MRI was performed 02/27/2021 LSpine @ [facility] [id number] Last Documented On 10:47AM ; [facility], [facility] Surgical History Last Updated History of total knee arthroplasty 12/23 Last Documented On 10:46AM ; [facility], [facility] Medical History Includes: Medical History addressed during this encounter Description Last Updated Back surgery 03/31/2021 L4-5 [place] [facility] [place]21 Last Documented On 1 3:56PM ; [facility] kidney stones 05/28/2021 Last Documented On 1 3:56PM ; [facility], [facility] Past Surgical History: stents - 1995 997 ~heart cath 05/28/2021 Last Documented On 1 3:56PM ; [facility] Arthritis 01/05/2021 Last Documented On 1 10:46AM ; [facility] History of Heart Attack / Stroke 021 Last Documented On 1 10:46AM ; [facility] History of heart disease 01/05/2021 Last Documented On 1 10:46AM ; [facility] Hypertension 01/05/2021 Last Documented On 1 10:46AM ; [facility] No recent immunization for flu Last Documented On 1 10:46AM ; [facility] No recent immunization for pneumococcal pneumonia 01/05/2021 Last Documented On 1 10:46AM ; [facility] History of diabetes mellitus 12/23/2015 Last Documented On 1 10:46AM ; [facility] Intermittent hypertension 12/23/2015 Last Documented On 1 10:46AM ; [facility] Kidney disease 12/23/2015 Last Documented On 1 10:46AM ; [facility] Liver disease 12/23/2015 Last Documented On 1 10:46AM ; [facility] Family History Includes: Family History addressed during this encounter Description Last Updated Diabetes mellitus 01/05/2021 Last Documented On 1 10:46AM ; [facility] Maternal history of diabetes mellitus Last Documented On 1 10:46AM ; [facility] Maternal history of family history of he art disease 01/01/2016 Last Documented On 1 10:46AM ; [facility] Maternal history of family history of ca ncer paternal 01/01/2016 Last Documented On 1 10:46AM ; [facility] Maternal history of hypertension 016 Last Documented On 1 10:46AM ; [facility] Family history of cancer 12/23/2015 Last Documented On 1 10:46AM ; [facility] Family history of diabetes mellitus 12/02 Last Documented On 1 10:46AM ; [facility] Family history of heart disease 12/23/19 16 Last Documented On 1 10:46AM ; [facility] Family history of hypertension 6 Last Documented On 1 10:46AM ; [facility] Review of Systems Includes: Review of Systems from this encounter Systemic: Not feeling tired. Recent weight loss. No recent weight gain. No edema. Head: No headache and no sinus pain. Eyes: No vision problems. Vision problems Cataracts. No glaucomatous visual field defect. Cataracts. No Glasses/Contacts and no Glaucoma. Otolaryngeal: Hearing loss and tinnitus. No nasal symptoms. Cardiovascular: Chest pain or discomfort. No palpitations. Hypertension. No High Cholesterol. Pulmonary: No daytime asthma symptoms, no cough, and no chronic cough. No wheezing. Gastrointestinal: Heartburn. No abdominal pain. Indigestion. No Acid Reflux, no Peptic Ulcer, no GI Stomach Bleed, and no Ulcers. Endocrine: No hot flashes. Muscle weakness and Diabetes. No Hypothyroid and no Hyperthyroid. Hematologic: No easy bleeding, no tendency for easy bruising, and no Anemia. Musculoskeletal: Arthritis and lower back pain. No soft tissue swelling. Pain localized to one or more joints. Neurological: No dizziness, no convulsions, and no numbness. Psychological: No anxiety, no emotional lability, no depression, and no insomnia. Not crying for no reason. Skin: No dry skin. No Ulcers, no Scars, no rash, and no ulcers. Allergic and Immunologic: No complaint of seasonal allergic reaction. reviewed with patient 05/28/2021 Mental Status Includes: Mental Status from this encounter Description No anxiety Functional Status Includes: Functional Status from this encounter No Functional Status Recorded Physical Exam Includes: Physical Exam from this encounter Allergies Includes: Active Allergies No Known Allergies Encounters Encounter Provider Location Date Check-In Time Check-Out Time Diagnosis Post Op Moo Mahoney MD [facility] 1 10:50AM 12:28PM Insurance Includes: Active Insurance Policies Plan Name Member ID Group # Subscriber Relationship Effect jay Dates 1 - Medicare Part B [facility] [id number] Gordy Stiles 10/31/2023 - Unknown 2 - [employer] [place] [id number] Gordy Stiles Clinical Notes Includes: Clinical Notes from this encounter No Clinical Notes Recorded
--- OUTSIDE RECORDS SUMMARY | 2024-06-09 20:59 | XMS_ITS | Clinical Summary ---
Author Organization [facility] , [facility] Address [address] [place] [address] Phone Care Team Providers Care Rn Home Health Name Role Phone CRISTIAN RASHEED, MARYANNE Bone Unavailable [phone] Maru RASHEED, Moo Alcala Unavailable Shantal RASHEED, Veda Cox Unavailable [phone] Reason for Referral Date Encounter Description Provider Reason for Referral 08/31/21 Follow Up Moo Mahoney MD Referral To Physician Reason for Visit and Chief Complaint The Chief Complaint is: lumbar and t-spine pain Problems Includes: Problems addressed during this encounter and other active Problems Current Visit Onset Date Resolved Date Provider Conditio n Status Lower Back Pain 10/27/2017 Jeremias MONTANO-C Active Last Documented On 4 8:46AM ; [facility] Lower Back Pain 10/27/2017 Jeremias MONTANO-C Inactive Last Documented On 4 8:46AM ; [facility] Past Visits Onset Date Resolved Date Provider Condition Status Midback Pain 11/19/2019 Moo Mahoney MD Acti ve Last Documented On 0 1:17PM ; [facility] Arthralgia Knee / Patella / Tibia / Fibula 12/22/2015 Jonathan Mae MD Active Last Documented On 6 9:00AM ; [facility] Note: Unchanged Plan of Treatment Patient may go on to activities as tolerated. Physical therapy with core strengthening program. [id number] - Last Documented On 08/31/2021 1:11PM ; [facility] Pending Tests Order Diagnosis Results Due Ordering P rovider Therapy - Physical Therapy Lumbar Fusion of spine, lumbar region 08/31/21 Moo Mahoney MD Last Documented On 1 1:11PM ; [facility], [facility] Future Appointments Date Time Location Provi hansel IN HOUSE REFERRAL 06/21/2024 8:30AM [facility] Jorge Silver MD Last Documented On 4 9:49AM ; [facility], [facility] Instructions to patient Intervention and counseling on cessation of tobacco use Last Documented On 1 8:30AM ; [facility], [facility] Assessments Includes: Assessments from this encounter Findings Successful decompression arthrodesis interbody fusion instrumentation, bone grafting, L4-5. - Last Documented On 08/31/2021 1:11PM ; [facility], [facility] Instructions Includes: Instructions from this encounter Instructions to patient Intervention and counseling on cessation of tobacco use Last Documented On 1 8:30AM ; [facility], [facility] Medical Equipment - Implanted Devices Includes: Current Devices No Medical Equipment Recorded Medications Includes: Medications discussed during this encounter and other current Medications Current Medications (continue as prescribed) Famciclovir 500 MG Oral Tablet 05/15/2024 Provider: Diagnosis: Last Documented On 4 10:27AM By Colleen Velasquez ; [facility], [facility] Testosterone Enanthate 200 MG/ML Intramuscular Solutio n 05/15/2024 Provider: Diagnosis: Last Documented On 4 10:26AM By Colleen Velasquez ; [facility], [facility] EQL Natural Zinc 50 MG Oral Tablet 05/15/2024 Provid er: Diagnosis: Last Documented On 4 10:26AM By Colleen Velasquez ; [facility], [facility] Vitamin D3 25 MCG (1000 UT) Oral Capsule, conventi onal 05/15/2024 Provider: Diagnosis: Last Documented On 4 10:25AM By Colleen Velasquez ; [facility], [facility] Vitamin C 500 MG Oral Tablet 05/15/2024 Provider : Diagnosis: Last Documented On 4 10:25AM By Colleen Velasquez ; [facility] Aspirin 81 MG Oral Tablet, chewable 05/15/2024 Provi hansel: Diagnosis: Last Documented On 4 10:24AM By Colleen Velasquez ; [facility], [facility] Anastrozole 1 MG Oral Tablet 05/15/2024 Provider: Diagnosis: Last Documented On 4 10:27AM By Colleen Velasquez ; [facility] Mounjaro 7.5 MG/0.5ML Subcutaneous Solution Pen-inject or 03/30/2024 Provider: Diagnosis: Last Documented On 4 8:47AM By Colleen Velasquez ; [facility] Tamsulosin HCl 0.4 MG Oral C apsule, conventional 03/27/2024 Provider: eVda Murguia MD Diagnosis: Last Documented On 4 8:47AM By Colleen Velasquez ; [facility] Ezetimibe 10 MG Oral Tablet 03/21/2024 Provider: Davidson Gracia MD Diagnosis: Last Documented On 4 8:47AM By Colleen Velasquez ; [facility] NIFEdipine ER Osmotic Releas e 60 MG Oral Tablet, extended-release 24 hour 03/19/2024 Provider: Max Murguia MD Diagnosis: Last Documented On 4 8:47AM By Colleen Velasquez ; [facility] Carvedilol 3.125 MG Oral Tablet 02/27/2024 Provider: Veda Murguia MD Diagnosis: Last Documented On 4 8:47AM By Colleen Velasquez ; [facility] metFORMIN HCl 1000 MG Oral Tablet 02/27/2024 Provide r: Diagnosis: Last Documented On 4 8:47AM By Colleen Velasquez ; [facility] Atorvastatin Calcium 40 MG Oral Tablet 01/16/2024 Pr ovider: Diagnosis: Last Documented On 4 8:47AM By Colleen Velasquez ; [facility] Past Medications on file Neurontin 100 MG Oral Capsule 04/15/2021 - 05/01/2021 Provider: Moo Mahoney MD Diagnosis: three times a day up to 3 ti mes a day for leg pain and cramping Last Documented On 1 10:15AM By Dr. Mahoney ; [facility] Medrol 4 MG Oral Tablet Ther apy Pack 04/15/2021 - 05/15/2021 Provider: Moo Mahoney MD Diagnosis: take as directed Last Documented On 1 10:06AM By Dr. Mahoney ; [facility], [facility] Cyclobenzaprine HCl 10 MG Or al Tablet 11/19/2019 - 12/09/2019 Provider: Moo Mahoney MD Diagnosis: 1 every bedtime-prn Last Documented On 0 1:35PM By Tati Velez ; [facility], [facility] Medications Administered Includes: Administered Medications from this encounter No Administered Medications Recorded Vital Signs Includes: Vital Signs from this encounter Vital Name 08/31/2021 08:37A Blood Pressure Sitting (mmHg) 138/73 Pulse Rate-Sitting (bpm) 76 Height (in) 68 Weight (lb) 190 Body Mass Index (kg/m2) 28.9 Body Surface Area (m2) 2.0 Note: sd Last Documented: On 08/31/2021 8:38AM ; [facility] Results Includes: Results discussed during this encounter No Results Recorded For Specified Dates History of Present Illness Includes: History of Present Illness from this encounter VICENTA Parry is a 66 year old male. - Allergy list reviewed - Problem list reviewed - Medication reconciliation performed - Medication list reviewed with patient Symptoms-none Patient is status post lumbar fusion L4-5 All of his preoperative leg pain is gone numbness is gone he does everything he wants to do. He can sleep through the night. No fever no chills. Social History Description Last Updated Caffeine use 05/15/2024 Last Documented On 1 8:30AM ; [facility], [facility] Not exercising regularly 05/15/2024 Last Documented On 1 8:30AM ; [facility], [facility] Not using alcohol 05/15/2024 Last Documented On 1 8:30AM ; [facility], [facility] Not using drugs 05/15/2024 Last Documented On 1 8:30AM ; [facility], [facility] Yes, current smoker. 01/05/2021 Last Documented On 1 8:30AM ; [facility], [facility] Smoker 01/05/2021 Last Documented On 1 8:30AM ; [facility], [facility] No tobacco use 10/27/2017 Last Documented On 1 8:30AM ; [facility], [facility] Smoking status : Former smoker 7 Last Documented On 1 8:30AM ; [facility], [facility] Not a current smoker 10/27/2017 Last Documented On 1 8:30AM ; [facility], [facility] No recent change in diet 12/23/2015 Last Documented On 1 8:30AM ; [facility], [facility] Procedures and Surgical History Includes: Procedures from this encounter Procedures Code Diagnosis Performing Provider Service L ocation Service Date intervention and counseling on cessation of tobacco use 4000F Last Documented On 1 8:30AM ; [facility], [facility] use of tobacco assessment performed 1000F Last Documented On 1 8:30AM ; [facility], [facility] referral to physician Last Documented On 1 8:43AM ; [facility] Clinical summary provided to patient Last Documented On 8:30AM ; [facility], [facility] an X-ray was performed 01/05 [facility] @ [facility] ~02/10/2021 [facility] @ [facility] ~04/15/2021 [facility] @ [facility] ~05/28/2021 [facility] ~08/31/2021 [facility] @ [facility] [address] Last Documented On 1 8:43AM ; [facility], [facility] history of a CT scan was performed 97352 Last Documented On 1 8:30AM ; [facility], [facility] an MRI was performed 02/27/2021 LSpine @ [facility] [id number] Last Documented On 1 8:30AM ; [facility], [facility] Surgical History Last Updated History of total knee arthroplasty 12/23 Last Documented On 1 8:30AM ; [facility], [facility] Medical History Includes: Medical History addressed during this encounter Description Last Updated Back surgery 03/31/2021 L4-5 Posterior Lumbar Decompression and Fusion @ E 05/28/2021 Last Documented On 1 8:30AM ; [facility], [facility] kidney stones 05/28/2021 Last Documented On 1 8:30AM ; [facility], [facility] Past Surgical History: stents - 1995 997 ~heart cath 05/28/2021 Last Documented On 1 8:30AM ; [facility] Arthritis 01/05/2021 Last Documented On 1 8:30AM ; [facility] History of Heart Attack / Stroke 021 Last Documented On 1 8:30AM ; [facility] History of heart disease 01/05/2021 Last Documented On 1 8:30AM ; [facility] Hypertension 01/05/2021 Last Documented On 1 8:30AM ; [facility], [facility] No recent immunization for flu 1 Last Documented On 1 8:30AM ; [facility] No recent immunization for pneumococcal pneumonia 01/05/2021 Last Documented On 1 8:30AM ; [facility] History of diabetes mellitus 12/23/2015 Last Documented On 1 8:30AM ; [facility] Intermittent hypertension 12/23/2015 Last Documented On 1 8:30AM ; [facility] Kidney disease 12/23/2015 Last Documented On 1 8:30AM ; [facility] Liver disease 12/23/2015 Last Documented On 1 8:30AM ; [facility] Family History Includes: Family History addressed during this encounter Description Last Updated Diabetes mellitus 01/05/2021 Last Documented On 1 8:43AM ; [facility], [facility] Family history of cancer 12/23/2015 Last Documented On 1 8:30AM ; [facility] Family history of heart disease 12/23/19 16 Last Documented On 1 8:30AM ; [facility] Family history of hypertension 6 Last Documented On 1 8:30AM ; [facility] Review of Systems Includes: Review of Systems [...] of seasonal allergic reaction. reviewed with patient 08/31/2021 Mental Status Includes: Mental Status from this encounter Description No anxiety Functional Status Includes: Functional Status from this encounter No Functional Status Recorded Physical Exam Includes: Physical Exam from this encounter Allergies Includes: Active Allergies No Known Allergies Encounters Encounter Provider Location Date Check-In Time Check-Out Time Diagnosis Follow Up Moo Mahoney MD [facility] 1 7:59AM 8:52AM Insurance Includes: Active Insurance Policies Plan Name Member ID Group # Subscriber Relationship Effect jay Dates 1 - Medicare Part B [facility] [id number] Gordy Stiles 10/31/2023 - Unknown 2 - [facility] [id number] Gordy Stiles Clinical Notes Includes: Clinical Notes from this encounter No Clinical Notes Recorded
--- OUTSIDE RECORDS SUMMARY | 2024-06-09 20:59 | XMS_ITS | Clinical Summary ---
Author Organization [facility] , [facility] Address [address] [place] [address] Phone Care Team Providers Care Senior Java Data Architect Name Role Phone CRISTIAN RASHEED, MARYANNE Bone Unavailable [phone] Maru RASHEED, Moo Alcala Unavailable Shantal RASHEED, Veda Cox Unavailable [phone] Reason for Referral Date Encounter Description Provider Reason for Referral 04/15/21 Post Op Moo Mahoney MD Referral To Physician - for elevated blood pressure Reason for Visit and Chief Complaint The Chief Complaint is: lumbar and t-spine pain Problems Includes: Problems addressed during this encounter and other active Problems Current Visit Onset Date Resolved Date Provider Conditio n Status Lower Back Pain 10/27/2017 Jeremias bone PA-C Active Last Documented On 4 8:46AM ; [facility] Lower Back Pain 10/27/2017 Jeremias bone PA-C Inactive Last Documented On 4 8:46AM ; [facility] Past Visits Onset Date Resolved Date Provider Condition Status Midback Pain 11/19/2019 Moo Mahoney MD Acti ve Last Documented On 0 1:17PM ; [facility] Arthralgia Knee / Patella / Tibia / Fibula 12/22/2015 Jonathan Mae MD Active Last Documented On 6 9:00AM ; [facility] Note: Unchanged Plan of Treatment Patient status post lumbar decompression arthrodesis doing quite well. Showing good evidence of healing up. Patient will continue doing walking sitting standing continue to do exercises, minimizing repetitive bending and twisting impact loading preparation, for approximately 6 more weeks.patient education. Mild element of L5 radiculopathy intermittent. Likely related to swelling. Neurontin Medrol Dosepak He has been overactive using to cut back on some of his activity. - Last Documented On 04/27/2021 9:19AM ; [facility], [facility] Future Appointments Date Time Location Venu hamm IN HOUSE REFERRAL 06/21/2024 8:30AM [facility] Jorge Silver MD Last Documented On 4 9:49AM ; [facility], [facility] Instructions to patient Instructions for patient see pcp for blood pressure Last Documented On 1 9:05AM ; [facility], [facility] Intervention and counseling on cessation of tobacco use Last Documented On 1 9:05AM ; [facility], [facility] Assessments Includes: Assessments from this encounter Findings Successful decompression arthrodesis, lumbar spine. - Last Documented On 04/27/2021 9:19AM ; [facility], [facility] Instructions Includes: Instructions from this encounter Instructions to patient Instructions for patient see pcp for blood pressure Last Documented On 1 9:05AM ; [facility], [facility] Intervention and counseling on cessation of tobacco use Last Documented On 1 9:05AM ; [facility], [facility] Medical Equipment - Implanted Devices Includes: Current Devices No Medical Equipment Recorded Medications Includes: Medications discussed during this encounter and other current Medications New / Renewed during this visit Moo Mahoney MD on 04/15/2021 Neurontin 100 MG Oral Capsule Provider: Moo Mahoney MD 16 day supply: 50 capsule, 0 refills Diagnosis: three times a day up to 3 ti mes a day for leg pain and cramping Pharmacy: [facility] [address] [place], [address] - Last Documented On 1 10:15AM By Dr. Mahoney ; [facility], [facility] Medrol 4 MG Oral Tablet Therapy Pack Provider: Moo Mahoney MD 30 day supply: 1 tablet, 0 refills Diagnosis: take as directed Pharmacy: [facility] [address] [place], [id number] - Last Documented On 1 10:06AM By Dr. Mahoney ; [facility], [facility] Current Medications (continue as prescribed) Famciclovir 500 MG Oral Tablet 05/15/2024 Provider: Diagnosis: Last Documented On 4 10:27AM By Colleen Velasquez ; [facility], [facility] Testosterone Enanthate 200 MG/ML Intramuscular Solutio n 05/15/2024 Provider: Diagnosis: Last Documented On 4 10:26AM By Colleen Velasquez ; [facility], [facility] Natural Zinc 50 MG Oral Tablet 05/15/2024 Provid er: Diagnosis: Last Documented On 4 10:26AM By Colleen Velasquez ; [facility], [facility] Vitamin D3 25 MCG (1000 UT) Oral Capsule, conventi onal 05/15/2024 Provider: Diagnosis: Last Documented On 4 10:25AM By Colleen Velasquez ; [facility], [facility] Vitamin C 500 MG Oral Tablet 05/15/2024 Provider : Diagnosis: Last Documented On 4 10:25AM By Colleen Velasquez ; [facility], [facility] Aspirin 81 MG Oral Tablet, chewable 05/15/2024 Provi hansel: Diagnosis: Last Documented On 4 10:24AM By Colleen Velasquez ; [facility], [facility] Anastrozole 1 MG Oral Tablet 05/15/2024 Provider: Diagnosis: Last Documented On 4 10:27AM By Colleen Velasquez ; [facility], [facility] Mounjaro 7.5 MG/0.5ML Subcutaneous Solution Pen-inject or 03/30/2024 Provider: Diagnosis: Last Documented On 4 8:47AM By Colleen Velasquez ; [facility], [facility] Tamsulosin HCl 0.4 MG Oral C apsule, conventional 03/27/2024 Provider: Veda Murguia MD Diagnosis: Last Documented On 4 8:47AM By Colleen Velasquez ; [facility], [facility] Ezetimibe 10 MG Oral Tablet 03/21/2024 Provider: Davidson Gracia MD Diagnosis: Last Documented On 4 8:47AM By Colleen Velasquez ; [facility], [facility] NIFEdipine ER Osmotic Releas e 60 MG Oral Tablet, extended-release 24 hour 03/19/2024 Provider: Max Murguia MD Diagnosis: Last Documented On 4 8:47AM By Colleen Velasquez ; [facility], [facility] Carvedilol 3.125 MG Oral Tablet 02/27/2024 Provider: Veda Murguia MD Diagnosis: Last Documented On 4 8:47AM By oClleen Velasquez ; [facility], [facility] metFORMIN HCl 1000 MG Oral Tablet 02/27/2024 Provide r: Diagnosis: Last Documented On 4 8:47AM By Colleen Velasquez ; [facility], [facility] Atorvastatin Calcium 40 MG Oral Tablet 01/16/2024 Pr ovider: Diagnosis: Last Documented On 4 8:47AM By Colleen Velasquez ; [facility] Past Medications on file Cyclobenzaprine HCl 10 MG Or al Tablet 11/19/2019 - 12/09/2019 Provider: Moo Mahoney MD Diagnosis: 1 every bedtime-prn Last Documented On 0 1:35PM By Tati Velez ; [facility], [facility] Medications Administered Includes: Administered Medications from this encounter No Administered Medications Recorded Vital Signs Includes: Vital Signs from this encounter Vital Name 04/15/2021 09:18A Blood Pressure Sitting (mmHg) 136/87 Pulse Rate-Sitting (bpm) 73 Height (in) 68 Weight (lb) 190 Body Mass Index (kg/m2) 28.9 Body Surface Area (m2) 2.0 Note: ts Last Documented: On 04/15/2021 9:18AM ; [facility] Results Includes: Results discussed during this encounter No Results Recorded For Specified Dates History of Present Illness Includes: History of Present Illness from this encounter VICENTA Parry is a 65 year old male. - Allergy list reviewed - Problem list reviewed - Medication reconciliation performed - Medication list reviewed reviewed with patient - With patient Patient is approximately 2 weeks status post lumbar decompression arthrodesis. The patient's symptoms are well under control. There is no shortness of breath, no leg pain no numbness or weakness.has done extremely well. He said occasionally the region of the lateral left of the thigh and calf but not into the foot. It is not continuous. It is only intermittent. Severe preoperative pain has resolved, the patient is independent, able to ambulate and care for themselves. Social History Description Last Updated Caffeine use 05/15/2024 Last Documented On 1 9:05AM ; [facility] Not exercising regularly 05/15/2024 Last Documented On 1 9:05AM ; [facility] Not using alcohol 05/15/2024 Last Documented On 1 9:05AM ; [facility] Not using drugs 05/15/2024 Last Documented On 1 9:05AM ; [facility] Yes, current smoker. 01/05/2021 Last Documented On 1 9:05AM ; [facility] Smoker 01/05/2021 Last Documented On 1 9:05AM ; [facility] No tobacco use 10/27/2017 Last Documented On 1 9:05AM ; [facility] Smoking status : Former smoker Last Documented On 1 9:05AM ; [facility] Not a current smoker 10/27/2017 Last Documented On 1 9:05AM ; [facility] No recent change in diet 12/23/2015 Last Documented On 1 9:05AM ; [facility] Procedures and Surgical History Includes: Procedures from this encounter Procedures Code Diagnosis Performing Provider Service L ocation Service Date intervention and counseling on cessation of tobacco use 4000F Last Documented On 9:05AM ; [facility] use of tobacco assessment performed 1000F Last Documented On 9:05AM ; [facility] referral to physician for elevated blood pressure Last Documented On 1 9:06AM ; [facility] Pt received screening for fall risk G8270 Last Documented On 9:05AM ; [facility] Clinical summary provided to patient Last Documented On 1 9:05AM ; [facility] an X-ray was performed 44133 Last Documented On 9:05AM ; [facility] history of a CT scan was performed 12910 Last Documented On 9:05AM ; [facility], [facility] an MRI was performed MRI Alfredito @ [facility] 02.27.2021 [id number] Last Documented On 1 9:05AM ; [facility] Surgical History Last Updated History of total knee arthroplasty 12/23 Last Documented On 1 9:05AM ; [facility] Medical History Includes: Medical History addressed during this encounter Description Last Updated stents - 199505/28/2021 Last Documented On 1 9:05AM ; [facility] Kidney stonesHeart catheter 04/15/2021 Last Documented On 1 9:05AM ; [facility], [facility] Arthritis 01/05/2021 Last Documented On 1 9:05AM ; [facility], [facility] History of Heart Attack / Stroke 021 Last Documented On 1 9:05AM ; [facility] History of heart disease 01/05/2021 Last Documented On 1 9:05AM ; [facility] Hypertension 01/05/2021 Last Documented On 1 9:05AM ; [facility], [facility] No recent immunization for flu Last Documented On 1 9:05AM ; [facility], [facility] No recent immunization for pneumococcal pneumonia 01/05/2021 Last Documented On 1 9:05AM ; [facility] History of diabetes mellitus 12/23/2015 Last Documented On 1 9:05AM ; [facility], [facility] Intermittent hypertension 12/23/2015 Last Documented On 1 9:05AM ; [facility] Kidney disease 12/23/2015 Last Documented On 1 9:05AM ; [facility] Liver disease 12/23/2015 Last Documented On 1 9:05AM ; [facility] Family History Includes: Family History addressed during this encounter Description Last Updated Diabetes mellitus 01/05/2021 Last Documented On 1 9:05AM ; [facility] Maternal history of diabetes mellitus Last Documented On 1 9:05AM ; [facility] Maternal history of family history of he art disease 01/01/2016 Last Documented On 1 9:05AM ; [facility] Maternal history of family history of ca ncer paternal 01/01/2016 Last Documented On 1 9:05AM ; [facility] Maternal history of hypertension 016 Last Documented On 1 9:05AM ; [facility] Family history of cancer 12/23/2015 Last Documented On 1 9:05AM ; [facility] Family history of diabetes mellitus 12/02 Last Documented On 1 9:05AM ; [facility] Family history of heart disease 12/23/19 16 Last Documented On 1 9:05AM ; [facility] Family history of hypertension 6 Last Documented On 1 9:05AM ; [facility] Review of Systems Includes: Review of [...] No complaint of seasonal allergic reaction. reviewed 04/15/2021 Mental Status Includes: Mental Status from this encounter Description No anxiety Functional Status Includes: Functional Status from this encounter No Functional Status Recorded Physical Exam Includes: Physical Exam from this encounter Allergies Includes: Active Allergies No Known Allergies Encounters Encounter Provider Location Date Check-In Time Check-Out Time Diagnosis Post Op Moo Mahoney MD [facility] 1 8:57AM 10:10AM Insurance Includes: Active Insurance Policies Plan Name Member ID Group # Subscriber Relationship Effect jay Dates 1 - Medicare Part B [facility] [id number] Gordy Stiles 10/31/2023 - Unknown 2 - [employer] [id number] Gordy Stiles Clinical Notes Includes: Clinical Notes from this encounter No Clinical Notes Recorded
--- OUTSIDE RECORDS SUMMARY | 2024-06-09 20:59 | XMS_ITS | Clinical Summary ---
Author Organization [facility] Address [address] [place] [address] Phone Care Team Providers Care Skid Adzer Name Role Phone CRISTIAN RASHEED, MARYANNE Bone Unavailable [phone] Maru RASHEED, Moo Alcala Unavailable Shantal RASHEED, Veda Cox Unavailable [phone] Reason for Visit and Chief Complaint SURGERY Problems Includes: Problems addressed during this encounter and other active Problems All Visits Onset Date Resolved Date Provider Condition S tatus Midback Pain 11/19/2019 Moo Mahoney MD Acti ve Last Documented On 0 1:17PM ; [facility], [facility] Lower Back Pain 10/27/2017 Jeremias bone PA-C Active Last Documented On 4 8:46AM ; [facility], [facility] Arthralgia Knee / Patella / Tibia / Fibula 12/22/2015 Jonathan Mae MD Active Last Documented On 6 9:00AM ; [facility], [facility] Note: Unchanged Plan of Treatment Future Appointments Date Time Location Provi hansel IN HOUSE REFERRAL 06/21/2024 8:30AM [facility] Jorge Silver MD Last Documented On 4 9:49AM ; [facility], [facility] Assessments Includes: Assessments from this encounter No Assessments Recorded Medical Equipment - Implanted Devices Includes: Current Devices No Medical Equipment Recorded Medications Includes: Medications discussed during this encounter and other current Medications Current Medications (continue as prescribed) Famciclovir 500 MG Oral Tablet 05/15/2024 Provider: Diagnosis: Last Documented On 4 10:27AM By Colleen Velasquez ; [facility], [facility] Testosterone Enanthate 200 MG/ML Intramuscular Solutio n 05/15/2024 Provider: Diagnosis: Last Documented On 4 10:26AM By Colleen Velasquez ; [facility] Natural Zinc 50 MG Oral Tablet 05/15/2024 Provid er: Diagnosis: Last Documented On 4 10:26AM By Colleen Velasquez ; [facility], [facility] Vitamin D3 25 MCG (1000 UT) Oral Capsule, conventi onal 05/15/2024 Provider: Diagnosis: Last Documented On 4 10:25AM By Colleen Velasquez ; [facility], [facility] Vitamin C 500 MG Oral Tablet 05/15/2024 Provider : Diagnosis: Last Documented On 4 10:25AM By Colleen Velasquez ; [facility], [facility] Aspirin 81 MG Oral Tablet, chewable 05/15/2024 Provi hansel: Diagnosis: Last Documented On 4 10:24AM By Colleen Velasquez ; [facility], [facility] Anastrozole 1 MG Oral Tablet 05/15/2024 Provider: Diagnosis: Last Documented On 4 10:27AM By Colleen Velasquez ; [facility], [facility] Mounjaro 7.5 MG/0.5ML Subcutaneous Solution Pen-inject or 03/30/2024 Provider: Diagnosis: Last Documented On 4 8:47AM By Colleen Velasquez ; [facility], [facility] Tamsulosin HCl 0.4 MG Oral C apsule, conventional 03/27/2024 Provider: Veda Murguia MD Diagnosis: Last Documented On 4 8:47AM By Colleen Velasquez ; [facility], [facility] Ezetimibe 10 MG Oral Tablet 03/21/2024 Provider: Davidson Gracia MD Diagnosis: Last Documented On 4 8:47AM By Colleen Velasquez ; [facility], [facility] NIFEdipine ER Osmotic Releas e 60 MG Oral Tablet, extended-release 24 hour 03/19/2024 Provider: Max Murguia MD Diagnosis: Last Documented On 4 8:47AM By Colleen Velasquez ; [facility], [facility] Carvedilol 3.125 MG Oral Tablet 02/27/2024 Provider: Veda Murguia MD Diagnosis: Last Documented On 4 8:47AM By Colleen [facility] metFORMIN HCl 1000 MG Oral Tablet 02/27/2024 Provide r: Diagnosis: Last Documented On 4 8:47AM By Colleen [facility] Atorvastatin Calcium 40 MG Oral Tablet 01/16/2024 Pr ovider: Diagnosis: Last Documented On 4 8:47AM By Colleen [facility] Medications Administered Includes: Administered Medications from this encounter No Administered Medications Recorded Results Includes: Results discussed during this encounter No Results Recorded For Specified Dates History of Present Illness Includes: History of Present Illness from this encounter No History of Present Illness Recorded Social History No Social History Recorded - Smoking Status Unknown Medical History Includes: Medical History addressed during this encounter No Medical History Recorded Family History Includes: Family History addressed during this encounter No Family History Recorded Review of Systems Includes: Review of Systems from this encounter No Review of Systems Recorded Mental Status Includes: Mental Status from this encounter No Mental Status Recorded Functional Status Includes: Functional Status from this encounter No Functional Status Recorded Physical Exam Includes: Physical Exam from this encounter No Physical Exam Recorded Allergies Includes: Active Allergies No Known Allergies Encounters Encounter Provider Location Date Check-In Time Check-Out Time Diagnosis SURGERY Moo Mahoney MD [facility] 1 8:07AM 11:59PM Insurance Includes: Active Insurance Policies Plan Name Member ID Group # Subscriber Relationship Effect jay Dates 1 - Medicare Part B [facility] [id number] Gordy Parry Self 10/31/2023 - Unknown 2 - [employer] [id number] Gordy Stiles Clinical Notes Includes: Clinical Notes from this encounter No Clinical Notes Recorded
--- OUTSIDE RECORDS SUMMARY | 2024-06-09 20:59 | XMS_ITS | Continuity of Care Document ---
Author Organization [facility] o Address [address] [place] [address] Phone Care Team Providers Care Cath Lab Nurse Name Role Phone Jeovany Cruz MD Unavailable [...] visit,[facility], [address] [place], [address], [place] tel:[phone] Lulu Dooley left knee pain (chief complaint) Unilateral primary osteoarthrit is, left kneePain in left knee 4 Anthony Thayer. [address] [facility] [place], [address], [place]. tel:[phone] Referring Provider: Jeovany Cruz L, [address] [facility] [place], [address]. tel:[phone] Family History Family Member Type Diagnosis Age At Onset No Information Payers Payer name Insurance type Covered alliance party ID Authoriza tion(s) Medicare [place] MB [id number] [facility] Life Insurance [place] [id number] Social History Type Description Quantity Date Captured [...]
[2024-06-09 21:00] LABS: Basophils # 0.1 K/mm3 (0-0.2); Basophils % 0.7 % (0.1-2.0); Eosinophils # 0.4 K/mm3 (0.0-0.4); Eosinophils % 3.5 % (0.1-12.0); Hematocrit 57.6 % (42.0-52.0); Lymphocytes # 0.9 K/mm3 (0.7-4.5); Lymphocytes % 8.3 % (10-50); Mean Corpuscular Hemoglobin 32.3 pg (27.0-31.2); Mean Corpuscular Volume 101.1 fl (80-94); Mean Platelet Volume 9.5 fl (7.4-10.4); Monocytes # 0.6 K/mm3 (0.1-1.0); Monocytes % 5.3 % (1.7-9.3); Neutrophils # 8.6 K/mm3 (1.8-7.8); Neutrophils % 82.2 % (37.0-80.0); Platelet Count 140 K/mm3 (142-424); Red Cell Distribution Width 13.5 % (11.5-17.5); White Blood Count 10.5 K/mm3 (4.8-10.8)
[2024-06-09 21:02] LABS: Chloride 108 mmol/L (98-107); Potassium 4.2 mmoL/L (3.5-5.1); Sodium 143 mmol/L (136-145)
[2024-06-09 21:04] LABS: Microscopic, Urine URINE MICROSCOPIC (MICROSCOPIC)
[2024-06-09 21:05] LABS: Alanine Aminotransferase 101 U/L (12-78); Albumin/Globulin Ratio 1.6 (1.1-1.8); Alkaline Phosphatase 104 U/L (38-126); Anion Gap 13.2 mEq/L (5-15); Aspartate Amino Transferase 57 U/L (17-59); Bilirubin,Total 1.6 mg/dl (0.2-1.3); Blood Urea Nitrogen 29 mg/dl (9-20); Carbon Dioxide 26 mmol/L (22.0-30.0); Creatinine Clearance Estimated 77 mL/min (50-200); Estimated Glomerular Filt Rate 50 ml/min (>60); GFR (African American) 61 ML/MIN (>60); Globulin 3.2 g/dL (1.3-3.2); Glucose 147 mg/dl (74-100); Total Protein,Serum 8.2 g/dl (6.3-8.2)
[2024-06-09 21:06] LABS: Hemoglobin 18.4 g/dL (14.1-18.0)
[2024-06-09 21:09] LABS: Appearance,Urine CLEAR (Clear); Bilirubin,Urine Negative (Negative); Blood, Urine 2+ (Negative); Color,Urine YELLOW (Yellow); Glucose,Urine (UA) Negative (Negative); Ketones,Urine 2+ (Negative); Leukocyte Esterase,Urine Negative (Negative); Nitrate,Urine Negative (Negative); Protein,Urine 2+ (Negative); Specific Gravity, Urine 1.025 (1.005-1.030); Urobilinogen,Urine 0.2 EU/dl (0.2)
--- NOTE | 2024-06-09 21:18 | ED_ITS ---
Discharge Plan Disposition Patient Disposition: Admitted Condition: Good Clinical Impressions Clinical Impression: Calculus of right ureter, Calculus of left ureter, HORTENSIA (acute kidney injury) Discharge ED Provider: Joy Brown General Adult HPI <DO Ivett Cool Last Filed: 06/09/24 23:29> General Chief complaint: Abdominal Pain Stated complaint: poss kidney stone Time Seen by Provider: 06/09/24 20:50 Mode of Arrival: Ambulatory Source of Information: Patient Limitations: No Limitations Description of Symptoms (Recalled from ER Triage Doc. by RN): pt came in tonight with complaints of right side flank pain that is radiating around front and has hx of kidney stones and beleive this to be same thing History of Present Illness HPI narrative: This patient is a 69-year-old male with a history of CAD, tobacco use, type 2 diabetes, hypertension, renal insufficiency, and recurrent kidney stones presenting to the emergency department for evaluation with concern for right flank pain. It started just before lunch and become progressively worse throughout the day. It radiates to his right lower quadrant. It feels the same as prior kidney stones. No fevers, nausea, vomiting, or other concerns noted at this time. Related Data Home Medications ?Medication ?Instructions ?Recorded ?Confirmed aspirin 81 mg tablet,delayed 81 mg PO DAILY HEART HEALTH 01/06/18 06/10/24 release carvedilol 3.125 mg tablet 3.125 mg PO BID Hypertension 01/06/18 06/10/24 metformin 1,000 mg tablet 1,000 mg PO BID Diabetes 02/27/20 06/10/24 nifedipine 60 mg tablet,extended 60 mg PO DAILY Hypertension 02/27/20 06/10/24 release 24 hr ezetimibe 10 mg tablet 10 mg PO DAILY 06/10/24 06/10/24 sildenafil 100 mg tablet See Rx Instructions .Route .COMPLEX 06/10/24 06/10/24 tamsulosin 0.4 mg capsule 0.4 mg PO DAILY 06/10/24 06/10/24 tirzepatide 7.5 mg/0.5 mL 7.5 mg SQ WEEKLY 06/10/24 06/10/24 subcutaneous pen injector (Mounjaro) Allergies Allergy/AdvReac Type Severity Reaction Status Date / Time Penicillins [PENICILLINS] Allergy Intermediate I-RASH Verified 06/17/21 08:22 PFSH <DO Ivett Cool Last Filed: 06/09/24 23:29> [facility] Disclaimer: The information contained in this section may have been updated after the patient was seen, as this information can be updated by other users. 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 current occupational exposures/hazards: No caffeine: Yes <Joy Brown DO - Last Filed: 06/09/24 23:29> ROS Obtained: Yes All systems reviewed & no additional complaints except as documented Physical Exam <Joy Brown DO - Last Filed: 06/09/24 23:29> General General appearance: alert Comment: Uncomfortable appearing Head Head exam: atraumatic and normocephalic Eye Eye exam: Present normal appearance, PERRL and EOMI ENT ENT exam: Present normal exam, normal oropharynx, mucous membranes moist and normal external ear exam Neck Neck exam: Present normal inspection, full ROM and trachea midline; Absent tenderness Chest Chest inspection: Present normal inspection and symmetric chest wall rise; Absent tenderness Respiratory Respiratory exam: Present normal lung sounds bilaterally; Absent respiratory distress, wheezes, stridor or accessory muscle use Cardiovascular Cardiovascular exam: Present regular rate and normal rhythm Abdominal Exam Abdominal exam: Present soft; Absent distention, tenderness or guarding Extremities Exam Extremities exam: Present normal inspection, full ROM and normal capillary refill; Absent tenderness or edema Back Exam Back exam: Present full ROM and CVA tenderness (R) Neurological Exam Neurological exam: Present alert, oriented X3, CN II-XII intact and normal gait; Absent motor sensory deficit Psychiatric Psychiatric exam: Present normal affect and normal mood Skin Skin exam: Present warm and dry Medical Decision Making <Joy Brown DO - Last Filed: 06/09/24 23:29> Medical Records Medical records reviewed: Yes I reviewed the patient's medical records. Cesar Inquiry Pt receiving controlled substance: No Vital Signs: 06/09/24 20:31 06/09/24 20:41 06/09/24 22:54 Temperature 97.5 F L 97.5 F L 99.0 F Temperature Source Oral Oral Oral Pulse Rate 103 H 85 Pulse Rate [Right Radial] 105 H Respiratory Rate 20 18 18 Blood Pressure 198/119 H 149/86 H Blood Pressure [Right Arm] 198/119 H Blood Pressure Mean 106 Blood Pressure Mean [Right Arm] 145 Blood Pressure Source Manual Cuff/ Auscultation Blood Pressure Position Sitting 02 Sat by Pulse Oximetry 98 97 97 Oxygen Delivery Method Room Air Room Air Room Air 06/10/24 01:08 Temperature 98.2 F Temperature Source Pulse Rate 70 Pulse Rate [Right Radial] Respiratory Rate 18 Blood Pressure 144/91 H Blood Pressure [Right Arm] Blood Pressure Mean Blood Pressure Mean [Right Arm] Blood Pressure Source Blood Pressure Position 02 Sat by Pulse Oximetry Oxygen Delivery Method Room Air Lab Data Lab results reviewed: Yes I reviewed the patient's lab results. Lab Results 06/09/24 20:46: WBC 10.5, RBC 5.70, Hgb 18.4 H, Hct 57.6 H, MCV 101.1 H, MCH 32.3 H, MCHC 32.0, RDW 13.5, Plt Count 140 L, MPV 9.5, Neut % (Auto) 82.2 H, L ymph % (Auto) 8.3 L, Nelson % (Auto) 5.3, Eos % (Auto) 3.5, Baso % (Auto) 0.7, N eut # (Auto) 8.6 H, Lymph # (Auto) 0.9, Nelson # (Auto) 0.6, Eos # (Auto) 0.4, Baso # (Auto) 0.1, Sodium 143, Potassium 4.2, Chloride 108 H, Carbon Dioxide 26, Anion Gap 13.2, BUN 29 H, Creatinine 1.40 H, Estimated Creat Clear 77, Estimated GFR 50 L, Est GFR ( Amer) 61, Glucose 147 H, Calcium 11.0 H, Total Bilirubin 1.6 H, AST 57, ALT 101 H, Alkaline Phosphatase 104, Total Protein 8.2, Albumin 5.0, Globulin 3.2, Albumin/Globulin Ratio 1.6 06/09/24 20:53: Urine Color Yellow, Urine Appearance Clear, Urine pH 6.0, Ur Specific [place] 1.025, Urine Protein 2+, Urine Glucose (UA) Negative, Urine Ketones 2+, Urine Blood 2+, Urine Nitrate Negative, Urine Bilirubin Negative, Urine Urobilinogen 0.2, Ur Leukocyte Esterase Negative, Urine RBC 10-20, Urine WBC 3-5, Ur Squamous Epith Cells Occasional, Urine Bacteria Trace 06/09/24 20:46 06/09/24 20:46 Orders (Tests/Meds): ED MEDICATIONS Discontinued Medications Generic Name Dose Route Start Last Admin Trade Name [place] PRN Reason Stop Dose Admin Hydromorphone HCl 0.5 mg 06/09/24 21:18 06/09/24 21:30 Hydromorphone 2mg/Ml Syringe IV 06/09/24 21:19 0.5 mg ONCE ONE Administration Hydromorphone HCl 0.5 mg 06/10/24 00:03 06/10/24 00:17 Hydromorphone 2mg/Ml Syringe IV 06/10/24 00:04 0.5 mg ONCE ONE Administration Lactated Ringer's 1,000 mls @ 999 mls/hr 06/09/24 20:52 06/09/24 20:52 Lactated Ringer's 1000 Ml Bag IV 06/09/24 21:52 999 mls/hr .Q1H1M ONE Administration Lactated Ringer's 1,000 mls @ 999 mls/hr 06/09/24 22:29 06/09/24 22:35 Lactated Ringer's 1000 Ml Bag IV 06/09/24 23:29 999 mls/hr .Q1H1M ONE Administration Ketorolac Tromethamine 15 mg 06/09/24 20:49 06/09/24 20:51 Ketorolac 30mg/Ml Vial IV 06/09/24 20:50 15 mg ONCE ONE Administration Morphine Sulfate 4 mg 06/09/24 20:49 06/09/24 20:51 Morphine 4mg/Ml Syringe IV 06/09/24 20:50 4 mg ONCE ONE Administration Ondansetron HCl 4 mg 06/09/24 20:49 06/09/24 20:51 Ondansetron 4mg/2ml Vial IV 06/09/24 20:50 4 mg ONCE ONE Administration Oxycodone HCl 5 mg 06/09/24 22:29 06/09/24 22:35 Oxycodone 5mg Immediate Release Tablet PO 06/09/24 22:30 5 mg ONCE ONE Administration Tamsulosin HCl 0.4 mg 06/09/24 22:29 06/09/24 22:35 Tamsulosin 0.4mg Capsule PO 06/09/24 22:30 0.4 mg ONCE ONE Administration ORDERS Category Date Time Status CT abdomen pelvis wo con Stat Cat Scan 06/09/24 20:53 Completed Complete Blood Count Auto Diff Stat Lab 06/09/24 20:46 Completed Comprehensive Metabolic Panel Stat Lab 06/09/24 20:46 Completed UA [Urinalysis and Microscopic] Stat Lab 06/09/24 20:53 Completed Urine Culture Stat Micro 06/09/24 20:53 Received Medical Decision Narrative: In summary, this patient is a 69-year-old male presenting to the Emergency Department for evaluation of right flank pain that feels similar to prior kidney. Differential diagnoses considered include but are not limited to cholelithiasis, pyelonephritis, cystitis, colitis, gastroenteritis. Ruling out the most morbid conditions drove assessment. It should be noted patient's history includes hypertension, hyperlipidemia, diabetes, CAD, recurrent kidney stones which may or may not be at goal therapy. This complicates all aspects of care by increasing patient's risk for morbidity. I reviewed patient's past medical records and noted multiple previous evaluations for kidney stones in the past. On exam, the patient is uncomfortable appearing with right CVA tenderness workup included CBC, CMP, urinalysis, urine culture, CT abdomen pelvis without IV contrast. He was given a bolus of IV fluids as well as IV morphine, Zofran, and Toradol for symptomatic improvement. He still continued to have pain, so he was given IV Dilaudid. I independently interpreted CT scan prior to the radiologist read and noted bilateral obstructive stones with bilateral hydronephrosis. Please see their read for final interpretation. Labs were obtained that demonstrated HORTENSIA with a creatinine of 1.4 from a baseline of 1. He has no leukocytosis, no evidence of infection on urinalysis, but he does have blood.. On reassessment, the patient is resting comfortably with improved symptoms. He was given oral oxycodone and Flomax for continued management of obstructive stones. He was also given a second liter bolus of IVF. Ultimately since he has bilateral obstructive stones as opposed to unilateral, I feel he would benefit from transfer to higher level of care, as he is high risk for renal failure. Patient is agreeable with this, but he only wants to go to [facility] where his urologist, Dr Recinos is. Given this, we initiated discussions with them. Patient care signed out to the oncoming provider, Dr. Bang. <Álvaro Bang MD - Last Filed: 06/10/24 01:43> Vital Signs: 06/09/24 20:31 06/09/24 20:41 06/09/24 22:54 Temperature 97.5 F L 97.5 F L 99.0 F Temperature Source Oral Oral Oral Pulse Rate 103 H 85 Pulse Rate [Right Radial] 105 H Respiratory Rate 20 18 18 Blood Pressure 198/119 H 149/86 H Blood Pressure [Right Arm] 198/119 H Blood Pressure Mean 106 Blood Pressure Mean [Right Arm] 145 Blood Pressure Source Manual Cuff/ Auscultation Blood Pressure Position Sitting 02 Sat by Pulse Oximetry 98 97 97 Oxygen Delivery Method Room Air Room Air Room Air 06/10/24 01:08 Temperature 98.2 F Temperature Source Pulse Rate 70 Pulse Rate [Right Radial] Respiratory Rate 18 Blood Pressure 144/91 H Blood Pressure [Right Arm] Blood Pressure Mean Blood Pressure Mean [Right Arm] Blood Pressure Source Blood Pressure Position 02 Sat by Pulse Oximetry Oxygen Delivery Method Room Air Lab Data Lab Results 06/09/24 20:46: WBC 10.5, RBC 5.70, Hgb 18.4 H, Hct 57.6 H, MCV 101.1 H, MCH 32.3 H, MCHC 32.0, RDW 13.5, Plt Count 140 L, MPV 9.5, Neut % (Auto) 82.2 H, L ymph % (Auto) 8.3 L, Nelson % (Auto) 5.3, Eos % (Auto) 3.5, Baso % (Auto) 0.7, N eut # (Auto) 8.6 H, Lymph # (Auto) 0.9, Nelson # (Auto) 0.6, Eos # (Auto) 0.4, Baso # (Auto) 0.1, Sodium 143, Potassium 4.2, Chloride 108 H, Carbon Dioxide 26, Anion Gap 13.2, BUN 29 H, Creatinine 1.40 H, Estimated Creat Clear 77, Estimated GFR 50 L, Est GFR ( Amer) 61, Glucose 147 H, Calcium 11.0 H, Total Bilirubin 1.6 H, AST 57, ALT 101 H, Alkaline Phosphatase 104, Total Protein 8.2, Albumin 5.0, Globulin 3.2, Albumin/Globulin Ratio 1.6 06/09/24 20:53: Urine Color Yellow, Urine Appearance Clear, Urine pH 6.0, Ur Specific [place] 1.025, Urine Protein 2+, Urine Glucose (UA) Negative, Urine Ketones 2+, Urine Blood 2+, Urine Nitrate Negative, Urine Bilirubin Negative, Urine Urobilinogen 0.2, Ur Leukocyte Esterase Negative, Urine RBC 10-20, Urine WBC 3-5, Ur Squamous Epith Cells Occasional, Urine Bacteria Trace Orders (Tests/Meds): ED MEDICATIONS Discontinued Medications Generic Name Dose Route Start Last Admin Trade Name Freq PRN Reason Stop Dose Admin Hydromorphone HCl 0.5 mg 06/09/24 21:18 06/09/24 21:30 Hydromorphone 2mg/Ml Syringe IV 06/09/24 21:19 0.5 mg ONCE ONE Administration Hydromorphone HCl 0.5 mg 06/10/24 00:03 06/10/24 00:17 Hydromorphone 2mg/Ml Syringe IV 06/10/24 00:04 0.5 mg ONCE ONE Administration Lactated Ringer's 1,000 mls @ 999 mls/hr 06/09/24 20:52 06/09/24 20:52 Lactated Ringer's 1000 Ml Bag IV 06/09/24 21:52 999 mls/hr .Q1H1M ONE Administration Lactated Ringer's 1,000 mls @ 999 mls/hr 06/09/24 22:29 06/09/24 22:35 Lactated Ringer's 1000 Ml Bag IV 06/09/24 23:29 999 mls/hr .Q1H1M ONE Administration Ketorolac Tromethamine 15 mg 06/09/24 20:49 06/09/24 20:51 Ketorolac 30mg/Ml Vial IV 06/09/24 20:50 15 mg ONCE ONE Administration Morphine Sulfate 4 mg 06/09/24 20:49 06/09/24 20:51 Morphine 4mg/Ml Syringe IV 06/09/24 20:50 4 mg ONCE ONE Administration Ondansetron HCl 4 mg 06/09/24 20:49 06/09/24 20:51 Ondansetron 4mg/2ml Vial IV 06/09/24 20:50 4 mg ONCE ONE Administration Oxycodone HCl 5 mg 06/09/24 22:29 06/09/24 22:35 Oxycodone 5mg Immediate Release Tablet PO 06/09/24 22:30 5 mg ONCE ONE Administration Tamsulosin HCl 0.4 mg 06/09/24 22:29 06/09/24 22:35 Tamsulosin 0.4mg Capsule PO 06/09/24 22:30 0.4 mg ONCE ONE Administration ORDERS Category Date Time Status CT abdomen pelvis wo con Stat Cat Scan 06/09/24 20:53 Completed Complete Blood Count Auto Diff Stat Lab 06/09/24 20:46 Completed Comprehensive Metabolic Panel Stat Lab 06/09/24 20:46 Completed UA [Urinalysis and Microscopic] Stat Lab 06/09/24 20:53 Completed Urine Culture Stat Micro 06/09/24 20:53 Received Medical Decision Narrative: In summary, this patient is a 69-year-old male presenting to the Emergency Department for evaluation of right flank pain that feels similar to prior kidney. Differential diagnoses considered include but are not limited to cholelithiasis, pyelonephritis, cystitis, colitis, gastroenteritis. Ruling out the most morbid conditions drove assessment. It should be noted patient's history includes hypertension, hyperlipidemia, diabetes, CAD, recurrent kidney stones which may or may not be at goal therapy. This complicates all aspects of care by increasing patient's risk for morbidity. I reviewed patient's past medical records and noted multiple previous evaluations for kidney stones in the past. On exam, the patient is uncomfortable appearing with right CVA tenderness workup included CBC, CMP, urinalysis, urine culture, CT abdomen pelvis without IV contrast. He was given a bolus of IV fluids as well as IV morphine, Zofran, and Toradol for symptomatic improvement. He still continued to have pain, so he was given IV Dilaudid. I independently interpreted CT scan prior to the radiologist read and noted bilateral obstructive stones with bilateral hydronephrosis. Please see their read for final interpretation. Labs were obtained that demonstrated HORTENSIA with a creatinine of 1.4 from a baseline of 1. He has no leukocytosis, no evidence of infection on urinalysis, but he does have blood.. On reassessment, the patient is resting comfortably with improved symptoms. He was given oral oxycodone and Flomax for continued management of obstructive stones. He was also given a second liter bolus of IVF. Ultimately since he has bilateral obstructive stones as opposed to unilateral, I feel he would benefit from transfer to higher level of care, as he is high risk for renal failure. Patient is agreeable with this, but he only wants to go to [facility] where his urologist, Dr Recinos is. Given this, we initiated discussions with them. Patient care signed out to the oncoming provider, Dr. Bang. Merritt: Upon my assumption of care patient is stable. His pain is starting to worsen, he is receiving IV Dilaudid. I agree with the assessment and plan from Dr. Brown and am currently awaiting callback from [facility]. I spoke with the on-call urologist, Dr. Mora, at [place]. He agrees that the patient will require intervention but does not need emergent intervention at this time so patient is being placed on a wait list. I spoke with the hospitalist who also accepted the patient for wait list. At this time patient requires admission to the hospital for continued pain management until waitlisted bed becomes available. I discussed this case with Dr. Álvarez who is covering for Dr. Ramon at this time. We discussed patient's current clinical status and anticipated transfer for bilateral kidney stones. Given he will not be available until the morning and patient will continue requiring pain meds overnight, I am ordering up to 2 doses of as needed Dilaudid since patient has tolerated this well in the ER as well as as needed acetaminophen and continued maintenance fluids for the patient while he is admitted. Patient was admitted in stable condition. Critical Care <Joy Brown, DO - Last Filed: 06/09/24 23:29> Critical Care Time Critical Care Time: No
[2024-06-09] MEDS: HYDROMORPHONE 2MG/ML SYRINGE 0.5 MG IV (21:30)
[2024-06-09 21:41] LABS: Bacteria,Urine Trace /lpf; Squamous Epithelial Cell,Urine Occasional #/hpf (0-5)
[2024-06-09] MEDS: TAMSULOSIN 0.4MG CAPSULE 0.4 MG PO (22:35)
[2024-06-09] MEDS: OXYCODONE 5MG IMMEDIATE RELEASE TABLET 5 MG PO (22:35)
[2024-06-09 22:54] VITALS: BP 149/86; PULSE 85; RESP 18; TEMP 37.2; O2SAT 97
--- NOTE | 2024-06-09 23:48 | PC.NURSE ---
contacted [facility] in regards to transfer for this patient. they will be reaching out to urology and hospital medicine and contacting us back.
--- NOTE | 2024-06-10 00:03 | PC.NURSE ---
received call back from dr karimi at [facility]
--- NOTE | 2024-06-10 00:15 | PC.NURSE ---
pt has been accepted at [facility] urology and [facility] medicine however no available beds so patient has been placed on waitlist. ER Md spoke with web applications developer urology dr janice karimi
[2024-06-10] MEDS: HYDROMORPHONE 2MG/ML SYRINGE 0.5 MG IV ×3 (00:17→08:44)
--- NOTE | 2024-06-10 00:49 | PC.NURSE ---
pt to be admitted per until bed is available for urology at [facility] for bilateral kidney stones and pain control, house detective made aware
--- NOTE | 2024-06-10 00:53 | PC.NURSE ---
patient made aware that he will be staying here until bed becomes available in [place] and will be going upstairs
[2024-06-10 01:05] VITALS: BP 144/91; PULSE 84; RESP 18; TEMP 36.4; O2SAT 94; BMI 25.8
--- NOTE | 2024-06-10 01:06 | PC.NURSE ---
called report to 2nd floor rn and answered all questions
[2024-06-10 01:08] VITALS: BP 144/91; PULSE 70; RESP 18; TEMP 36.8; O2SAT 96
[2024-06-10] MEDS: LACTATED RINGERS 1000ML 1,000 ML 125 ML IV (01:57)
[2024-06-10 04:00] VITALS: BP 121/70; PULSE 73; RESP 16; TEMP 36.9; O2SAT 96; BMI 25.8
[2024-06-10 08:00] VITALS: BP 127/80; PULSE 68; RESP 18; TEMP 36.6; O2SAT 95
--- NOTE | 2024-06-10 08:46 | [facility].PHAINT1 ---
Pharmacy Intervention Comments: MEDICATION RECONCILIATION COMPLETE USING EXTERNAL PHARMACY FILL HISTORY.
--- NOTE | 2024-06-10 10:34 | EXP.HPDC ---
General Admission date:: 06/10/24 Discharge date: 06/10/24 *Admission Date: 06/10/24 *Chief complaint: Right Flank pain *History of present illness: Mr diaz is a 69 year old male with a long history of kidney stones. He presented to [facility] ER last night with a 12 hour history of sever right flank pain. He states pain is identical to previous episodes of obstruction due to kidney stones. [facility] Disclaimer: The information contained in this section may have been updated after the patient was seen, as this information can be updated by other users. Medical History (Updated 06/10/24 @ 10:41 by Sukhdeep Ramon MD) Hyperlipidemia HTN (hypertension) Tobacco use Hydronephrosis Diabetes Acute coronary syndrome Coronary artery disease Calculus of right ureter Calculus of left ureter Surgical History (Updated 06/10/24 @ 10:37 by Sukhdeep Ramon MD) History of heart artery stent Social History Smoking Status: Never smoker second hand exposure: Yes alcohol intake: former substance use type: former substance user and marijuana current occupational status: employed Travel in the last 8 weeks: Inside the [place] household members: none housing: house 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 current occupational exposures/hazards: No caffeine: Yes Review of Systems Constitutional Constitutional: Denies chills and Denies fever(s) *Cardiovascular Cardiovascular: Denies chest pain *Respiratory Respiratory: Denies cough *Gastrointestinal Gastrointestinal: Denies constipation *Genitourinary Genitourinary: Reports as per HPI and Denies difficulty urinating *Musculoskeletal Musculoskeletal: Denies arthralgias and Denies numbness *Neurologic Neurologic: Denies numbness Exam Data for Last 24 hours Vital signs and Labs for Last 24 Hours: Temp Pulse Resp BP Pulse Ox O2 Del Method 97.8 F 68 18 127/80 95 Room Air 06/10/24 08:00 06/10/24 08:00 06/10/24 08:00 06/10/24 08:00 06/10/24 08:00 06/10/24 09:00 Laboratory Results - last 24 hr 06/09/24 20:46: WBC 10.5, RBC 5.70, Hgb 18.4 H, Hct 57.6 H, MCV 101.1 H, MCH 32.3 H, MCHC 32.0, RDW 13.5, Plt Count 140 L, MPV 9.5, Neut % (Auto) 82.2 H, Lymph % (Auto) 8.3 L, Ripley % (Auto) 5.3, Eos % (Auto) 3.5, Baso % (Auto) 0.7, Neut # (Auto) 8.6 H, Lymph # (Auto) 0.9, Ripley # (Auto) 0.6, Eos # (Auto) 0.4, Baso # (Auto) 0.1, Sodium 143, Potassium 4.2, Chloride 108 H, Carbon Dioxide 26, Anion Gap 13.2, BUN 29 H, Creatinine 1.40 H, Estimated Creat Clear 77, Estimated GFR 50 L, Est GFR ( Amer) 61, Glucose 147 H, Calcium 11.0 H, Total Bilirubin 1.6 H, AST 57, ALT 101 H, Alkaline Phosphatase 104, Total Protein 8.2, Albumin 5.0, Globulin 3.2, Albumin/Globulin Ratio 1.6 06/09/24 20:53: Urine Color Yellow, Urine Appearance Clear, Urine pH 6.0, Ur Specific [place] 1.025, Urine Protein 2+, Urine Glucose (UA) Negative, Urine Ketones 2+, Urine Blood 2+, Urine Nitrate Negative, Urine Bilirubin Negative, Urine Urobilinogen 0.2, Ur Leukocyte Esterase Negative, Urine RBC 10-20, Urine WBC 3-5, Ur Squamous Epith Cells Occasional, Urine Bacteria Trace I & O for Last 24 hours: Intake & Output 06/07/24 06/08/24 06/09/24 06/10/24 23:59 23:59 23:59 23:59 Intake Total 434 / 434 Output Total 0 / 0 Balance 434 / 434 Weight 240 lb 170 lb 7.982 oz Constitutional Constitutional: no acute distress *Routine HEENT Exam Head: Present normocephalic Eye: Present EOMI and PERRL ENT: Present mucous membranes moist *Routine Neck Exam Neck: Present supple; Absent lymphadenopathy *Routine Respiratory Exam Respiratory: Present CTA bilaterally *Routine Cardiovascular Exam Cardiovascular: Present RRR *Routine Abdominal Exam Abdominal: Present soft and normoactive bowel sounds; Absent tenderness *Routine Rectal Exam Rectal:: deferred *Routine Genitalia Exam Genitalia:: deferred *Routine Extremities Exam Extremities: Absent cyanosis, clubbing or edema *Routine Skin Exam Skin: Present warm; Absent rash *Routine Neurological Exam Neurological: Present alert and oriented X3 Meds Home Medications and Allergies Home Medications ?Medication ?Instructions ?Recorded ?Confirmed ?Type aspirin 81 mg tablet,delayed 81 mg PO DAILY 01/06/18 06/10/24 History release carvedilol 3.125 mg tablet 3.125 mg PO BID Hypertension 01/06/18 06/10/24 History metformin 1,000 mg tablet 1,000 mg PO BID 02/27/20 06/10/24 History nifedipine 60 mg tablet,extended 60 mg PO DAILY 02/27/20 06/10/24 History release 24 hr ezetimibe 10 mg tablet 10 mg PO DAILY 06/10/24 06/10/24 History sildenafil 100 mg tablet 100 mg PO DAILYP PRN Sexual 06/10/24 06/10/24 History Activity tamsulosin 0.4 mg capsule 0.4 mg PO HS 06/10/24 06/10/24 History tirzepatide 7.5 mg/0.5 mL 7.5 mg SQ WEEKLY 06/10/24 06/10/24 History subcutaneous pen injector (Mounjaro) New Prescriptions to Start Prescriptions: Allergies Allergy/AdvReac Type Severity Reaction Status Date / Time Penicillins [PENICILLINS] Allergy Intermediate I-RASH Verified 06/17/21 08:22 Hospital Course Hospital Course Hospital Course: Patient was admitted at [facility] with intentions to transfer to [facility] to the care of his urologist once a bed became available. CT scan showed severe right sided hydronephrosis with an obstructing stone. He was treated with IV fluids, zofran and dilaudid and his pain was fairly well controlled. Results Data Completed and Pending Labs on day of discharge: Labs from last 24 hours 06/09/24 06/09/24 20:53 20:46 WBC 10.5 RBC 5.70 Hgb 18.4 H Hct 57.6 H MCV 101.1 H MCH 32.3 H MCHC 32.0 RDW 13.5 Plt Count 140 L MPV 9.5 Neut % (Auto) 82.2 H Lymph % (Auto) 8.3 L Ripley % (Auto) 5.3 Eos % (Auto) 3.5 Baso % (Auto) 0.7 Neut # (Auto) 8.6 H Lymph # (Auto) 0.9 Ripley # (Auto) 0.6 Eos # (Auto) 0.4 Baso # (Auto) 0.1 Sodium 143 Potassium 4.2 Chloride 108 H Carbon Dioxide 26 Anion Gap 13.2 BUN 29 H Creatinine 1.40 H Estimated Creat Clear 77 Estimated GFR 50 L Est GFR ( Amer) 61 Glucose 147 H Calcium 11.0 H Total Bilirubin 1.6 H AST 57 ALT 101 H Alkaline Phosphatase 104 Total Protein 8.2 Albumin 5.0 Globulin 3.2 Albumin/Globulin Ratio 1.6 Urine Color Yellow Urine Appearance Clear Urine pH 6.0 Ur Specific [place] 1.025 Urine Protein 2+ Urine Glucose (UA) Negative Urine Ketones 2+ Urine Blood 2+ Urine Nitrate Negative Urine Bilirubin Negative Urine Urobilinogen 0.2 Ur Leukocyte Esterase Negative Urine RBC 10-20 Urine WBC 3-5 Ur Squamous Epith Cells Occasional Urine Bacteria Trace DS: Diagnosis Discharge Diagnosis (1) HORTENSIA (acute kidney injury): Status: Acute Code(s): N17.9 - Acute kidney failure, unspecified (2) Calculus of right ureter: Status: Acute Code(s): N20.1 - Calculus of ureter (3) Tobacco use: Status: Chronic Code(s): Z72.0 - Tobacco use (4) Nephrolithiasis: Status: Acute Code(s): N20.0 - Calculus of kidney (5) Hydronephrosis: Status: Acute Code(s): N13.30 - Unspecified hydronephrosis (6) Diabetes: Status: Chronic Code(s): E11.9 - Type 2 diabetes mellitus without complications Qualifiers: Diabetes mellitus complication status: with other specified complication Diabetes mellitus nursing home insulin use: unspecified nursing home insulin use status Diabetes mellitus type: type 2 Qualified Code(s): E11.69 - Type 2 diabetes mellitus with other specified complication Discharge Plan Disposition Patient Disposition: Xfer SNF Condition: Good Discharge Order Discharge Orders: Discharge Order (Routine); Ordered 06/10/24 Ordered By: Sukhdeep Ramon Follow up Plan Prescriptions/Medication Reconciliation: Continued aspirin 81 MG tablet,delayed release (DR/EC) 81 mg PO DAILY Patient Comments: carvedilol 3.125 M tablet 3.125 mg PO BID Patient Comments: metformin 1,000 MG tablet 1,000 mg PO BID nifedipine 60 mg tablet extended release 24hr 60 mg PO DAILY sildenafil 100 mg tablet 100 mg PO DAILYP PRN (Reason: Sexual Activity) tamsulosin 0.4 mg capsule 0.4 mg PO HS ezetimibe 10 mg tablet 10 mg PO DAILY Mounjaro 7.5 mg/0.5 mL pen injector 7.5 mg SQ WEEKLY Problem Reconciliation Problems Reviewed?: Yes Patient Discharge Instructions ACTIVITY: Continue current activity DIET: continue same diet Stand Alone Forms: Transfer Record Patient Instructions: Acute Kidney Injury Print Language: Armenian Providers Primary Care Provider: Sukhdeep Ramon Admit Provider: Sukhdeep Ramon Attending Provider: Sukhdeep Ramon
--- OUTSIDE RECORDS SUMMARY | 2024-06-10 10:39 | XMS_ITS | Continuity of Care Document ---
Author Organization [facility] o Address [address] [place] [address] Phone Care Team Providers Care Backend Developer Name Role Phone Jeovany Cruz MD Unavailable Unavailable Procedures Procedure Date Office/outpatient visit,[facility] 2023 X-ray exam of knee, 3 views X-ray exam of pelvis, 1-2 views 024 Advance Directives Directive Yes / No Effective Date File Name No Information Encounters Encounter Description Practice Location Reason(s) For Visit Diagnoses Date Provider Providers Copied on Encounter Office/outpat ient visit,[facility], [address] [place], [address], [place] tel:[phone] Lulu Dooley left knee pain (chief complaint) Unilateral primary osteoarthrit is, left kneePain in left knee 4 [address] Thayer. [address] [facility] [place], [address], [place]. tel:[phone] Referring Provider: Jeovany Cruz L, [address] [facility] [place], [address]. tel:[phone] Family History Family Member Type Diagnosis Age At Onset No Information Payers Payer name Insurance type Covered democrat ID Authoriza tion(s) Medicare [place] MB [id number] [facility] Life Insurance CI [id number] Social History Type Description Quantity Date Captured [...]
--- OUTSIDE RECORDS SUMMARY | 2024-06-10 10:39 | XMS_ITS ---
Author Organization [facility] Address [address] [place] [address] Phone Care Team Providers Care Aromatherapist Name Role Phone CRISTIAN RASHEED, MARYANNE Bone Unavailable [phone] Maru RASHEED, Moo Alcala Unavailable Shantal RASHEED, Veda Cox Unavailable [phone] Reason for Referral Date Encounter Description Provider [...] ve Last Documented On 0 1:17PM ; [facility] Lower Back Pain 10/27/2017 Jeremias bone PA-C Active Last Documented On 4 8:46AM ; [facility] Lower Back Pain 10/27/2017 Jeremias bone PA-C Inactive Last Documented On 4 8:46AM ; [facility] Arthralgia Knee / Patella / Tibia / Fibula 12/22/2015 Jonathan Mae MD Active Last Documented On 6 9:00AM ; [facility] Note: Unchanged Plan of Treatment Findings Encounter [...] use Last Documented On 6 9:25AM ; [facility] Education and Decision Aids were provided during visit for: Health seminar on smoking ce ssation Last Documented On 7 8:37AM ; [facility] Health seminar on smoking ce ssation Last Documented On 7 8:35AM ; [facility] Health seminar on smoking ce ssation Last Documented On 7 9:57AM ; [facility] Health seminar on smoking ce ssation Last Documented On 7 8:35AM ; [facility] Health seminar on smoking ce ssation Last Documented On 7 8:35AM ; [facility] Health seminar on smoking ce ssation Last Documented On 7 8:48AM ; [facility] Health seminar on smoking ce ssation Last Documented On 7 8:23AM ; [facility] Health seminar on smoking ce ssation Last Documented On 6 8:28AM ; [facility] Health seminar on smoking ce ssation Last Documented On 6 8:52AM ; [facility] Health seminar on smoking ce ssation Last Documented On 6 9:25AM ; [facility] Medical Equipment - Implanted Devices Includes: Current and historical Devices No Medical Equipment Recorded Medications Includes: Current and historical Medications Current Medications (continue as prescribed) Famciclovir 500 MG Oral Tablet 05/15/2024 Provider: Diagnosis: Last Documented On 4 10:27AM By Colleen Velasquez ; [facility] Testosterone Enanthate 200 MG/ML Intramuscular Solutio n 05/15/2024 Provider: Diagnosis: Last Documented On 4 10:26AM By Colleen Velasquez ; [facility] EQL Natural Zinc 50 MG Oral Tablet 05/15/2024 Provid er: Diagnosis: Last Documented On 4 10:26AM By Colleen Velasquez ; [facility] EQL Vitamin D3 25 MCG (1000 UT) Oral Capsule, conventi onal 05/15/2024 Provider: Diagnosis: Last Documented On 4 10:25AM By Colleen Velasquez ; [facility] Vitamin C 500 MG Oral Tablet 05/15/2024 Provider : Diagnosis: Last Documented On 4 10:25AM By Colleen Velasquez ; [facility] Aspirin 81 MG Oral Tablet, chewable 05/15/2024 Provi hansel: Diagnosis: Last Documented On 4 10:24AM By Colleen Velasquez ; [facility] Anastrozole 1 MG Oral Tablet 05/15/2024 Provider: Diagnosis: Last Documented On 4 10:27AM By Colleen Velasquez ; [facility] Mounjaro 7.5 MG/0.5ML Subcutaneous Solution Pen-inject or 03/30/2024 Provider: Diagnosis: Last Documented On 4 8:47AM By Colleen Velasquez ; [facility] Tamsulosin HCl 0.4 MG Oral C apsule, conventional 03/27/2024 Provider: Veda Murguia MD Diagnosis: Last Documented On 4 8:47AM By Colleen Velasquez ; [facility] Ezetimibe 10 MG Oral Tablet 03/21/2024 Provider: Davidson Gracia MD Diagnosis: Last Documented On 4 8:47AM By Colleen Velasquez ; [facility] NIFEdipine ER Osmotic Releas e 60 MG Oral Tablet, extended-release 24 hour 03/19/2024 Provider: Max Murguia MD Diagnosis: Last Documented On 4 8:47AM By Colleen Velasquez ; [facility] Carvedilol 3.125 MG Oral Tablet 02/27/2024 Provider: Veda Murguia MD Diagnosis: Last Documented On 4 8:47AM By Colleen Velasquez ; [facility] metFORMIN HCl 1000 MG Oral Tablet 02/27/2024 Provide r: Diagnosis: Last Documented On 4 8:47AM By Colleen Velasquez ; [facility] Atorvastatin Calcium 40 MG Oral Tablet 01/16/2024 Pr ovider: Diagnosis: Last Documented On 4 8:47AM By Colleen Velasquez ; [facility] Past Medications on file Neurontin 100 MG Oral Capsule 04/15/2021 - 05/01/2021 Provider: Moo Mahoney MD Diagnosis: three times a day up to 3 ti mes a day for leg pain and cramping Last Documented On 1 10:15AM By Dr. Mahoney ; [facility] Medrol 4 MG Oral Tablet Ther apy Pack 04/15/2021 - 05/15/2021 Provider: Moo Mahoney MD Diagnosis: take as directed Last Documented On 1 10:06AM By Dr. Mahoney ; [facility] Clopidogrel Bisulfate 75 MG Oral Tablet 01/16/2021 - 05/15/2024 Provider: Francia russell PA-C Diagnosis: Last Documented On 4 8:46AM By Colleen Velasquez ; [facility] metFORMIN HCl 1000 MG Oral Tablet 01/08/2021 - 024 Provider: Diagnosis: Last Documented On 4 8:46AM By Colleen Velasquez ; [facility] Lisinopril 10 MG Oral Tablet 01/08/2021 - 05/15/2024 Candelaria buenoder: Diagnosis: Last Documented On 4 8:46AM By Colleen Velasquez ; [facility] Atorvastatin Calcium 40 MG Oral Tablet 12/16/2020 - Provider: Diagnosis: Last Documented On 4 8:46AM By Colleen Velasquez ; [facility] Clopidogrel Bisulfate 75 MG Oral Tablet 12/16/2020 - 0 03/02/2021 Provider: Diagnosis: Last Documented On 1 9:01AM By Trudy Gomez ; [facility] Sildenafil Citrate 100 MG Or al Tablet 12/04/2020 - 05/15/2024 Provider: LOBO LYNCH MD Diagnosis: Last Documented On 4 8:46AM By Colleen Velasquez ; [facility] NIFEdipine ER Osmotic Releas e 60 MG Oral Tablet Extended Release 24 Hour 08/20/2020 - 05/15/2024 Provider: Diagnosis: Last Documented On 4 8:46AM By Colleen Velasquez ; [facility] HM Aspirin EC Low Dose 81 MG Oral Tablet Delayed Release 07/23/2020 - 05/15/2024 Provider: Diagnosis: Last Documented On 4 8:46AM By Colleen Velasquez ; [facility] Carvedilol 12.5 MG Oral Tablet 11/19/2019 - 05/15/2024 Provider: Diagnosis: Last Documented On 4 8:46AM By Colleen Velasquez ; [facility] Lisinopril 10 MG Oral Tablet 11/19/2019 - 03/04/2021 P rovider: Diagnosis: Last Documented On 1 1:02PM By Trudy Gomez ; [facility] Cyclobenzaprine HCl 10 MG Or al Tablet 11/19/2019 - 12/09/2019 Provider: Moo Mahoney MD Diagnosis: 1 every bedtime-prn Last Documented On 0 1:35PM By Tati Velez ; [facility] Aspirin 81MG Oral Tablet Delayed Release 10/27/2017 - 11/19/2019 Provider: Diagnosis: Last Documented On 0 1:19PM By Dr. Mahoney ; [facility] Plavix 75MG Oral Tablet 10/27/2017 - 11/19/2019 Provid er: Diagnosis: Last Documented On 0 1:19PM By Dr. Mahoney ; [facility] Aleve 220 MG Capsule 12/23/2015 - 11/19/2019 Provider: Diagnosis: Last Documented On 0 1:20PM By Dr. Mahoney ; [facility] Tylenol 325 MG Tablet 12/23/2015 - 11/19/2019 Provider : Diagnosis: Last Documented On 0 1:19PM By Dr. Mahoney ; [facility] Ibuprofen 200 MG Tablet 12/23/2015 - 11/19/2019 Provid er: Diagnosis: Last Documented On 0 1:20PM By Dr. Mahoney ; [facility] Famciclovir 125 MG Tablet 12/23/2015 - 11/19/2019 Prov ider: Diagnosis: Last Documented On 0 1:20PM By Dr. Mahoney ; [facility] MetFORMIN HCl 500 MG Tablet 12/23/2015 - 03/02/2021 Pr ovider: Diagnosis: Last Documented On 9:24PM By Tati Velez ; [facility] Medications Administered Includes: Administered Medications in patient's chart No Administered Medications Recorded Vital Signs Includes: Vital Signs from 06/10/2023 through 06/10/2024 Vital Name 05/15/2024 11:42A Height (in) 67 Weight (lb) 130 Body Mass Index 20.4 Body Surface Area 1.7 Last Documented: On 05/15/2024 11:43A M ; [facility] Results Includes: Results from 06/10/2023 through 06/10/2024 No Results Recorded For Specified Dates History of Present Illness History of Present Illness not supported for this document type No History of Present Illness Recorded Social History Description Last Updated No caffeine use 05/15/2024 Last Documented On 4 1:12PM ; [facility] No recent change in diet 05/15/2024 Last Documented On 4 1:12PM ; [facility] Not a current smoker. 05/15/2024 Last Documented On 4 1:12PM ; [facility] Not exercising regularly 05/15/2024 Last Documented On 4 1:12PM ; [facility] Not using alcohol 05/15/2024 Last Documented On 4 1:12PM ; [facility] Not using drugs 05/15/2024 Last Documented On 4 1:12PM ; [facility] Yes, current smoker. 01/05/2021 Last Documented On 1 3:48PM ; [facility] Smoker 01/05/2021 Last Documented On 1 3:48PM ; [facility] No tobacco use 10/27/2017 Last Documented On 7 10:43AM ; [facility] Smoking status : Former smoker 7 Last Documented On 7 10:43AM ; [facility] Not a current smoker 10/27/2017 Last Documented On 7 10:43AM ; [facility] No recent change in diet 12/23/2015 Last Documented On 6 3:14PM ; [facility] Procedures and Surgical History Includes: Procedures from 06/10/2023 through 06/10/2024 Procedures Code Diagnosis Performing Provider Service Location Service Date X-RAY EXAM OF LOWER SPINE 2-3 VIEWS LIMITED 23556 Other low back pain Jeremias Miller PA-C [facility] 05/15/2024 Last Documented On 4 5:57AM ; [facility] Surgical History Last Updated History of total knee arthroplasty 12/23 Last Documented On 6 3:14PM ; [facility] Medical History Includes: Medical History in patient's chart Description Last Updated Back surgery 03/31/2021 L4-5 Posterior Lumbar Decompression and Fusion @ [facility] 05/28/2021 Last Documented On 1 3:56PM ; [facility] kidney stones 05/28/2021 Last Documented On 1 3:56PM ; [facility] Past Surgical History: stents - 1995 997 ~heart cath 05/28/2021 Last Documented On 1 3:56PM ; [facility] Arthritis 01/05/2021 Last Documented On 1 3:48PM ; [facility] History of Heart Attack / Stroke 01/05/ 021 Last Documented On 1 3:48PM ; [facility] History of heart disease 01/05/2021 Last Documented On 1 3:48PM ; [facility] Hypertension 01/05/2021 Last Documented On 1 3:48PM ; [facility] No recent immunization for flu 1 Last Documented On 1 3:48PM ; [facility] No recent immunization for pneumococcal pneumonia 01/05/2021 Last Documented On 1 3:48PM ; [facility] History of diabetes mellitus 12/23/2015 Last Documented On 6 3:14PM ; [facility] Intermittent hypertension 12/23/2015 Last Documented On 6 3:14PM ; [facility] Kidney disease 12/23/2015 Last Documented On 6 3:14PM ; [facility] Liver disease 12/23/2015 Last Documented On 6 3:14PM ; [facility] Family History Includes: Family History in patient's chart Description Last Updated No significant family history 05/15/2024 Last Documented On 4 1:12PM ; [facility] Diabetes mellitus 01/05/2021 Last Documented On 1 3:48PM ; [facility] Maternal history of diabetes mellitus Last Documented On 7 10:43AM ; [facility] Maternal history of family history of he art disease 01/01/2016 Last Documented On 6 4:57PM ; [facility] Maternal history of family history of ca ncer paternal 01/01/2016 Last Documented On 6 4:57PM ; [facility] Maternal history of hypertension 016 Last Documented On 6 4:57PM ; [facility] Family history of cancer 12/23/2015 Last Documented On 6 3:14PM ; [facility] Family history of diabetes mellitus 12/02 Last Documented On 6 3:14PM ; [facility] Family history of heart disease 12/23/19 16 Last Documented On 6 3:14PM ; [facility] Family history of hypertension 6 Last Documented On 6 3:14PM ; [facility] Review of Systems Review of Systems not supported for this document type No Review of Systems Recorded Mental Status Description No anxiety Functional Status No Functional Status Recorded Physical Exam Physical Exam not supported for this document type No Physical Exam Recorded Allergies Includes: Active, inactive, and resolved Allergies No Known Allergies Encounters Includes: Encounters from 06/10/2023 through 06/10/2024 Encounter Provider Location Date Check-In Time Check-Out Time Diagnosis SECOND OPINION Jeremias Miller PA-C [facility] 05/15/20 24 8:58AM 9:44AM Insurance Includes: Active Insurance Policies Plan Name Member ID Group # Subscriber Relationship Effect jay Dates 1 - Medicare Part B [facility] [id number] Gordy Stiles 10/31/2023 - Unknown 2 - [employer] [id number] Gordy Stiles Clinical Notes Includes: Signed Clinical Notes starting from 10/14/2022 * Progress note Date Encounter Last Documented by 05/15/2024 SECOND OPINION Last documented on 05/17/2024; 1:12 PM, Jeremias Miller PA-C; [facility] Active Problems & Conditions - Arthralgia Knee [...] X-ray was performed [place] hip 03/28/24 @ [facility] Vaughn knee 03/28/24 @ [facility]. Available previous imaging studies were reviewed [...]
--- OUTSIDE RECORDS SUMMARY | 2024-06-10 10:39 | XMS_ITS | Clinical Summary ---
Author Organization [facility] Address [address] [place] [address] Phone Care Team Providers Care Skimmer Scoop Operator Name Role Phone CRISTIAN RASHEED, MARYANNE Bone Unavailable [phone] Maru RASHEED, Moo Alcala Unavailable Shantal RASHEED, Veda Cox Unavailable [phone] Reason for Referral Date Encounter Description Provider [...] Active Last Documented On 4 8:46AM ; [facility] Lower Back Pain 10/27/2017 Jeremias bone PA-C Inactive Last Documented On 4 8:46AM ; [facility] Past Visits Onset Date Resolved Date Provider Condition Status Midback Pain 11/19/2019 Moo Mahoney MD Acti ve Last Documented On 0 1:17PM ; [facility] Arthralgia Knee / Patella / Tibia / Fibula 12/22/2015 Jonathan Mae MD Active Last Documented On 6 9:00AM ; [facility] Note: Unchanged Plan of Treatment Patient status post lumbar decompression arthrodesis doing quite well. Showing good evidence of healing up. Patient will continue doing walking sitting standing continue to do exercises, minimizing repetitive bending and twisting impact loading preparation, for approximatelygradually increase decreasing activity level, limited by the amount of pain that is experienced. - Last Documented On 05/28/2021 3:56PM ; [facility] Future Appointments Date Time Location Provi hansel IN HOUSE REFERRAL 06/21/2024 8:30AM [facility] Jorge Silver MD Last Documented On 4 9:49AM ; [facility] Instructions to patient Instructions for patient see pcp for blood pressure Last Documented On 1 10:46AM ; [facility] Intervention and counseling on cessation of tobacco use Last Documented On 1 10:46AM ; [facility] Assessments Includes: Assessments from this encounter Findings Successful decompression arthrodesis, lumbar spine.approximately 10 weeks status post lumbar fusion - Last Documented On 05/28/2021 3:56PM ; [facility] Instructions Includes: Instructions from this encounter Instructions to patient Instructions for patient see pcp for blood pressure Last Documented On 1 10:46AM ; [facility] Intervention and counseling on cessation of tobacco use Last Documented On 1 10:46AM ; [facility] Medical Equipment - Implanted Devices Includes: Current Devices No Medical Equipment Recorded Medications Includes: Medications discussed during this encounter and other current Medications Current Medications (continue as prescribed) Famciclovir 500 MG Oral Tablet 05/15/2024 Provider: Diagnosis: Last Documented On 4 10:27AM By Colleen Velasquez ; [facility] Testosterone Enanthate 200 MG/ML Intramuscular Solutio n 05/15/2024 Provider: Diagnosis: Last Documented On 4 10:26AM By oClleen [facility], [facility] EQL Natural Zinc 50 MG Oral Tablet 05/15/2024 Provid er: Diagnosis: Last Documented On 4 10:26AM By Colleen [facility], [facility] EQL Vitamin D3 25 MCG (1000 UT) Oral Capsule, conventi onal 05/15/2024 Provider: Diagnosis: Last Documented On 4 10:25AM By Colleen Velasquez ; [facility] Vitamin C 500 MG Oral Tablet 05/15/2024 Provider : Diagnosis: Last Documented On 4 10:25AM By Colleen Velasquez ; [facility] Aspirin 81 MG Oral Tablet, chewable 05/15/2024 Provi hansel: Diagnosis: Last Documented On 4 10:24AM By Colleen Velasquez ; [facility], [facility] Anastrozole 1 MG Oral Tablet 05/15/2024 Provider: Diagnosis: Last Documented On 4 10:27AM By Colleen Velasquez ; [facility], [facility] Mounjaro 7.5 MG/0.5ML Subcutaneous Solution Pen-inject or 03/30/2024 Provider: Diagnosis: Last Documented On 4 8:47AM By Colleen Velasquez ; [facility], [facility] Tamsulosin HCl 0.4 MG Oral C apsule, conventional 03/27/2024 Provider: Veda Murguia MD Diagnosis: Last Documented On 4 8:47AM By Colleen Velasquez ; [facility], [facility] Ezetimibe 10 MG Oral Tablet 03/21/2024 Provider: Davidson Gracia MD Diagnosis: Last Documented On 4 8:47AM By Colleen Velasquez ; [facility], [facility] NIFEdipine ER Osmotic Releas e 60 MG Oral Tablet, extended-release 24 hour 03/19/2024 Provider: Max Murguia MD Diagnosis: Last Documented On 4 8:47AM By Colleen Velasquez ; [facility], [facility] Carvedilol 3.125 MG Oral Tablet 02/27/2024 Provider: Veda Murguia MD Diagnosis: Last Documented On 4 8:47AM By Colleen Velasquez ; [facility], [facility] metFORMIN HCl 1000 MG Oral Tablet 02/27/2024 Provide r: Diagnosis: Last Documented On 4 8:47AM By Colleen Velasquez ; [facility], [facility] Atorvastatin Calcium 40 MG Oral Tablet 01/16/2024 Pr ovider: Diagnosis: Last Documented On 4 8:47AM By Colleen Velasquez ; [facility], [facility] Past Medications on file Neurontin 100 MG Oral Capsule 04/15/2021 - 05/01/2021 Provider: Moo Mahoney MD Diagnosis: three times a day up to 3 ti mes a day for leg pain and cramping Last Documented On 1 10:15AM By Dr. Mahoney ; [facility], [facility] Medrol 4 MG Oral Tablet Ther apy Pack 04/15/2021 - 05/15/2021 Provider: Moo Mahoney MD Diagnosis: take as directed Last Documented On 1 10:06AM By Dr. Mahoney ; [facility], [facility] Cyclobenzaprine HCl 10 MG Or al Tablet 11/19/2019 - 12/09/2019 Provider: Moo Mahoney MD Diagnosis: 1 every bedtime-prn Last Documented On 0 1:35PM By Tati Velez ; [facility], [facility] Medications Administered Includes: Administered Medications from this encounter No Administered Medications Recorded Vital Signs Includes: Vital Signs from this encounter Vital Name 05/28/2021 11:59A Blood Pressure Sitting (mmHg) 146/92 Pulse Rate-Sitting (bpm) 65 Height (in) 68 Weight (lb) 190 Body Mass Index (kg/m2) 28.9 Body Surface Area (m2) 2.0 Note: rd Last Documented: On 05/28/2021 12:00P M ; [facility] Results Includes: Results discussed during this [...] 05/15/2024 Last Documented On 1 10:46AM ; [facility] Not exercising regularly 05/15/2024 Last Documented On 1 10:46AM ; [facility] Not using alcohol 05/15/2024 Last Documented On 1 10:46AM ; [facility] Not using drugs 05/15/2024 Last Documented On 1 10:46AM ; [facility] Yes, current smoker. 01/05/2021 Last Documented On 10:46AM ; [facility] Smoker 01/05/2021 Last Documented On 10:46AM ; [facility] No tobacco use 10/27/2017 Last Documented On 10:46AM ; [facility] Smoking status : Former smoker Last Documented On 10:46AM ; [facility] Not a current smoker 10/27/2017 Last Documented On 10:46AM ; [facility] No recent change in diet 12/23/2015 Last Documented On 10:46AM ; [facility] Procedures and Surgical History Includes: Procedures from this encounter Procedures Code Diagnosis Performing Provider Service L ocation Service Date intervention and counseling on cessation of tobacco use 4000F Last Documented On 10:46AM ; [facility] use of tobacco assessment performed 1000F Last Documented On 10:46AM ; [facility] referral to physician for elevated blood pressure Last Documented On 10:46AM ; [facility], [facility] Pt received screening for fall risk G8270 Last Documented On 10:46AM ; [facility] Clinical summary provided to patient Last Documented On 10:46AM ; [facility], [facility] an X-ray was performed 70145 Last Documented On 10:46AM ; [facility] history of a CT scan was performed 45917 Last Documented On 10:46AM ; [facility], [facility] an MRI was performed 02/27/2021 LSpine @ [facility] [id number] Last Documented On 10:47AM ; [facility] Surgical History Last Updated History of total knee arthroplasty 12/23 Last Documented On 10:46AM ; [facility] Medical History Includes: Medical History addressed during this encounter Description Last Updated Back surgery 03/31/2021 L4-5 Posterior Lumbar Decompression and Fusion @ [facility] 05/28/2021 Last Documented On 1 3:56PM ; [facility] kidney stones 05/28/2021 Last Documented On 1 3:56PM ; [facility] Past Surgical History: stents - 1995 997 ~heart cath 05/28/2021 Last Documented On 1 3:56PM ; [facility] Arthritis 01/05/2021 Last Documented On 1 10:46AM ; [facility] History of Heart Attack / Stroke 021 Last Documented On 1 10:46AM ; [facility] History of heart disease 01/05/2021 Last Documented On 1 10:46AM ; [facility] Hypertension 01/05/2021 Last Documented On 1 10:46AM ; [facility] No recent immunization for flu Last Documented On 1 10:46AM ; [facility] No recent immunization for pneumococcal pneumonia 01/05/2021 Last Documented On 1 10:46AM ; [facility] History of diabetes mellitus 12/23/2015 Last Documented On 1 10:46AM ; [facility] Intermittent hypertension 12/23/2015 Last Documented On 1 10:46AM ; [facility] Kidney disease 12/23/2015 Last Documented On 1 10:46AM ; [facility] Liver disease 12/23/2015 Last Documented On 1 10:46AM ; [facility] Family History Includes: Family History addressed during this encounter Description Last Updated Diabetes mellitus 01/05/2021 Last Documented On 1 10:46AM ; [facility] Maternal history of diabetes mellitus Last Documented On 1 10:46AM ; [facility] Maternal history of family history of he art disease 01/01/2016 Last Documented On 1 10:46AM ; [facility] Maternal history of family history of ca ncer paternal 01/01/2016 Last Documented On 1 10:46AM ; [facility] Maternal history of hypertension 016 Last Documented On 1 10:46AM ; [facility] Family history of cancer 12/23/2015 Last Documented On 1 10:46AM ; [facility] Family history of diabetes mellitus 12/02 Last Documented On 1 10:46AM ; [facility] Family history of heart disease 12/23/19 16 Last Documented On 1 10:46AM ; [facility] Family history of hypertension 6 Last Documented On 1 10:46AM ; [facility] Review of Systems Includes: Review of [...] Time Diagnosis Post Op Moo Mahoney MD [facility] 1 10:50AM 12:28PM Insurance Includes: Active Insurance Policies Plan Name Member ID Group # Subscriber Relationship Effect jay Dates 1 - Medicare Part B [facility] [id number] Gordy Stiles 10/31/2023 - Unknown 2 - [employer] [id number] Gordy Stiles Clinical Notes Includes: Clinical Notes from this encounter No Clinical Notes Recorded
--- OUTSIDE RECORDS SUMMARY | 2024-06-10 10:39 | XMS_ITS | Clinical Summary ---
Author Organization [facility] , [facility] Address [address] [place] [address] Phone Care Team Providers Care International Relations Professor Name Role Phone CRISTIAN RASHEED, MARYANNE Bone Unavailable [phone] Maru RASHEED, Moo Alcala Unavailable Shantal RASHEED, Veda Cox Unavailable [phone] Reason for Visit and Chief Complaint The Chief Complaint is: Low back pain Problems Includes: Problems addressed during this encounter and other active Problems Current Visit Onset Date Resolved Date Provider Conditio n Status Lower Back Pain 10/27/2017 Jeremias bone PA-C Active Last Documented On 4 8:46AM ; [facility] Lower Back Pain 10/27/2017 Jeremias bone PA-C Inactive Last Documented On 4 8:46AM ; [facility] Past Visits Onset Date Resolved Date Provider Condition Status Midback Pain 11/19/2019 Moo Mahoney MD Acti ve Last Documented On 0 1:17PM ; [facility] Arthralgia Knee / Patella / Tibia / Fibula 12/22/2015 Jonathan aMe MD Active Last Documented On 6 9:00AM ; [facility] Note: Unchanged Plan of Treatment - Patient screened for future fall risk: documentation of any fall with injury in past year - Last Documented On 05/17/2024 1:12PM ; [facility] Fall Risk Assessment: This patient has [...] - Last Documented On 05/17/2024 1:12PM ; [facility], [facility] Assessment: Lumbar spondylosis prior lumbar fusion. [...] - Last Documented On 05/17/2024 1:12PM ; [facility], [facility] Pending Tests Order Diagnosis Results Due Ordering P rovider Therapy - Physical Therapy Lumbar Low back pain, unspecified 05/15/24 Jeremias Miller PA-C Last Documented On 4 9:58AM ; [facility] Future Appointments Date Time Location [facility] IN HOUSE REFERRAL 06/21/2024 8:30AM [facility] Jorge Silver MD Last Documented On 4 9:49AM ; [facility], [facility] Assessments Includes: Assessments from this encounter No Assessments Recorded Medical Equipment - Implanted Devices Includes: Current Devices No Medical Equipment Recorded Medications Includes: Medications discussed during this encounter and other current Medications Discontinued / Stopped on this date Francia Pratt PA-C on 01/16/2021 Clopidogrel Bisulfate 75 MG Oral Tablet Provider: Francia hammond PA-C Diagnosis: Last Documented On 4 8:46AM By Colleen Quiroga [facility], [facility] metFORMIN HCl 1000 MG Oral Tablet Provide r: Diagnosis: Last Documented On 4 8:46AM By Colleen Quiroga [facility], [facility] Lisinopril 10 MG Oral Tablet Provider: Diagnosis: Last Documented On 4 8:46AM By Colleen Quiroga [facility], [facility] Atorvastatin Calcium 40 MG Oral Tablet Pr ovider: Diagnosis: Last Documented On 4 8:46AM By Colleen Qurioga [facility], [facility] Sildenafil Citrate 100 MG Oral Tablet Pro vider: LOBO LYNCH MD Diagnosis: Last Documented On 4 8:46AM By Colleen Velasquez ; [facility], [facility] NIFEdipine ER Osmotic Releas e 60 MG Oral Tablet Extended Release 24 Hour Provider: Diagnosis: Last Documented On 4 8:46AM By Colleen Velasquez ; [facility] HM Aspirin EC Low Dose 81 MG Oral Tablet Delayed Relea se Provider: Diagnosis: Last Documented On 4 8:46AM By Colleen Velasquez ; [facility] Carvedilol 12.5 MG Oral Tablet Provider: Diagnosis: Last Documented On 4 8:46AM By Colleen Velasquez ; [facility] Current Medications (continue as prescribed) Famciclovir 500 MG Oral Tablet 05/15/2024 Provider: Diagnosis: Last Documented On 4 10:27AM By Colleen Velasquez ; [facility] Testosterone Enanthate 200 MG/ML Intramuscular Solutio n 05/15/2024 Provider: Diagnosis: Last Documented On 4 10:26AM By Colleen Velasquez ; [facility] EQL Natural Zinc 50 MG Oral Tablet 05/15/2024 Provid er: Diagnosis: Last Documented On 4 10:26AM By Colleen Velasquez ; [facility] EQL Vitamin D3 25 MCG (1000 UT) Oral Capsule, conventi onal 05/15/2024 Provider: Diagnosis: Last Documented On 4 10:25AM By Colleen Velasquez ; [facility] Vitamin C 500 MG Oral Tablet 05/15/2024 Provider : Diagnosis: Last Documented On 4 10:25AM By Colleen Velasquez ; [facility] Aspirin 81 MG Oral Tablet, chewable 05/15/2024 Provi hansel: Diagnosis: Last Documented On 4 10:24AM By Colleen Velasquez ; [facility] Anastrozole 1 MG Oral Tablet 05/15/2024 Provider: Diagnosis: Last Documented On 4 10:27AM By Colleen Velasquez ; [facility] Mounjaro 7.5 MG/0.5ML Subcutaneous Solution Pen-inject or 03/30/2024 Provider: Diagnosis: Last Documented On 4 8:47AM By Colleen Velasquez ; [facility], [facility] Tamsulosin HCl 0.4 MG Oral C apsule, conventional 03/27/2024 Provider: Veda Murguia MD Diagnosis: Last Documented On 4 8:47AM By Colleen Velasquez ; [facility], [facility] Ezetimibe 10 MG Oral Tablet 03/21/2024 Provider: Davidson Gracia MD Diagnosis: Last Documented On 4 8:47AM By Colleen Velasquez ; [facility], [facility] NIFEdipine ER Osmotic Releas e 60 MG Oral Tablet, extended-release 24 hour 03/19/2024 Provider: Max Murguia MD Diagnosis: Last Documented On 4 8:47AM By Colleen Velasquez ; [facility], [facility] Carvedilol 3.125 MG Oral Tablet 02/27/2024 Provider: Veda Murguia MD Diagnosis: Last Documented On 4 8:47AM By Colleen Velasquez ; [facility] metFORMIN HCl 1000 MG Oral Tablet 02/27/2024 Provide r: Diagnosis: Last Documented On 4 8:47AM By Colleen Velasquez ; [facility], [facility] Atorvastatin Calcium 40 MG Oral Tablet 01/16/2024 Pr ovider: Diagnosis: Last Documented On 4 8:47AM By Colleen Velasquez ; [facility] Past Medications on file Neurontin 100 MG Oral Capsule 04/15/2021 - 05/01/2021 Provider: Moo Mahoney MD Diagnosis: three times a day up to 3 ti mes a day for leg pain and cramping Last Documented On 1 10:15AM By Dr. Mahoney ; [facility], [facility] Medrol 4 MG Oral Tablet Ther apy Pack 04/15/2021 - 05/15/2021 Provider: Moo Mahoney MD Diagnosis: take as directed Last Documented On 1 10:06AM By Dr. Mahoney ; [facility], [facility] Cyclobenzaprine HCl 10 MG Or al Tablet 11/19/2019 - 12/09/2019 Provider: Moo Mahoney MD Diagnosis: 1 every bedtime-prn Last Documented On 0 1:35PM By Tati Velez ; [facility], [facility] Medications Administered Includes: Administered Medications from this encounter No Administered Medications Recorded Vital Signs Includes: Vital Signs from this encounter Vital Name 05/15/2024 11:42A Height (in) 67 Weight (lb) 130 Body Mass Index 20.4 Body Surface Area 1.7 Last Documented: On 05/15/2024 11:43A M ; [facility] Results Includes: Results discussed during this [...] 05/15/2024 Last Documented On 4 1:12PM ; [facility] No recent change in diet 05/15/2024 Last Documented On 4 1:12PM ; [facility] Not a current smoker. 05/15/2024 Last Documented On 4 1:12PM ; [facility] Not exercising regularly 05/15/2024 Last Documented On 4 1:12PM ; [facility] Not using alcohol 05/15/2024 Last Documented On 4 1:12PM ; [facility] Not using drugs 05/15/2024 Last Documented On 4 1:12PM ; [facility] Smoking Status Unknown Procedures and Surgical History Includes: Procedures from this encounter Procedures Code Diagnosis Performing Provider Service Location Service Date X-RAY EXAM OF LOWER SPINE 2-3 VIEWS LIMITED 14055 Other low back pain Jeremias Miller PA-[facility] 05/15/2024 Last Documented On 4 5:57AM ; [facility] an X-ray was performed Vaughn hip 03/28/24 @ [facility] ~Bi l knee 03/28/24 @ [facility] [id number] Last Documented On 4 8:48AM ; [facility] Medical History Includes: Medical History addressed during this encounter No Medical History Recorded Family History Includes: Family History addressed during this encounter Description Last Updated No significant family history 05/15/2024 Last Documented On 4 1:12PM ; [facility] Review of Systems Includes: Review of [...] Time Diagnosis SECOND OPINION Jeremias Miller PA-C [facility] 05/15/20 24 8:58AM 9:44AM Insurance Includes: Active Insurance Policies Plan Name Member ID Group # Subscriber Relationship Effect jay Dates 1 - Medicare Part B of [place] [id number] Gordy Parry Self 10/31/2023 - Unknown 2 - [employer] [id number] Gordy Parry Self Clinical Notes Includes: Clinical Notes from this encounter * Progress note Date Encounter Last Documented by 05/15/2024 SECOND OPINION Last documented on 05/17/2024; 1:12 PM, Jeremias Miller PA-C; [facility] Active Problems & Conditions - Arthralgia [...] X-ray was performed Vaughn hip 03/28/24 @ [facility] Vaughn knee 03/28/24 @ [facility]. Available previous imaging studies were reviewed Available [...]
--- OUTSIDE RECORDS SUMMARY | 2024-06-10 10:39 | XMS_ITS | Clinical Summary ---
Author Organization [facility] , [facility] Address [address] [place] [address] Phone Care Team Providers Care Business Solutions Architect Name Role Phone CRISTIAN RASHEED, MARYANNE Bone Unavailable [phone] Maru RASHEED, Moo Alcala Unavailable Shantal RASHEED, Veda Cox Unavailable [phone] Reason for Referral Date Encounter Description Provider [...] Active Last Documented On 4 8:46AM ; [facility] Lower Back Pain 10/27/2017 Jeremias bone PA-C Inactive Last Documented On 4 8:46AM ; [facility] Past Visits Onset Date Resolved Date Provider Condition Status Midback Pain 11/19/2019 Moo Mahoney MD Acti ve Last Documented On 0 1:17PM ; [facility] Arthralgia Knee / Patella / Tibia / Fibula 12/22/2015 Jonathan Mae MD Active Last Documented On 6 9:00AM ; [facility] Note: Unchanged Plan of Treatment Patient status [...] - Last Documented On 04/27/2021 9:19AM ; [facility], [facility] Future Appointments Date Time Location Venu hamm IN HOUSE REFERRAL 06/21/2024 8:30AM [facility] Jorge Silver MD Last Documented On 4 9:49AM ; [facility], [facility] Instructions to patient Instructions for patient see pcp for blood pressure Last Documented On 1 9:05AM ; [facility], [facility] Intervention and counseling on cessation of tobacco use Last Documented On 1 9:05AM ; [facility], [facility] Assessments Includes: Assessments from this encounter Findings Successful decompression arthrodesis, lumbar spine. - Last Documented On 04/27/2021 9:19AM ; [facility], [facility] Instructions Includes: Instructions from this encounter Instructions to patient Instructions for patient see pcp for blood pressure Last Documented On 1 9:05AM ; [facility], [facility] Intervention and counseling on cessation of tobacco use Last Documented On 1 9:05AM ; [facility], [facility] Medical Equipment - Implanted Devices Includes: Current [...] day for leg pain and cramping Pharmacy: [facility] [address] [place], [address] - Last Documented On 1 10:15AM By Dr. Mahoney ; [facility], [facility] Medrol 4 MG Oral Tablet Therapy Pack Provider: Moo Mahoney MD 30 day supply: 1 tablet, 0 refills Diagnosis: take as directed Pharmacy: [facility] [address] [place], [id number] - Last Documented On 1 10:06AM By Dr. Mahoney ; [facility], [facility] Current Medications (continue as prescribed) Famciclovir 500 MG Oral Tablet 05/15/2024 Provider: Diagnosis: Last Documented On 4 10:27AM By Colleen Velasquez ; [facility], [facility] Testosterone Enanthate 200 MG/ML Intramuscular Solutio n 05/15/2024 Provider: Diagnosis: Last Documented On 4 10:26AM By Colleen Velasquez ; [facility], [facility] EQL Natural Zinc 50 MG Oral Tablet 05/15/2024 Provid er: Diagnosis: Last Documented On 4 10:26AM By Colleen Velasquez ; [facility], [facility] EQL Vitamin D3 25 MCG (1000 UT) Oral Capsule, conventi onal 05/15/2024 Provider: Diagnosis: Last Documented On 4 10:25AM By Colleen Velasquez ; [facility], [facility] Vitamin C 500 MG Oral Tablet 05/15/2024 Provider : Diagnosis: Last Documented On 4 10:25AM By Colleen Velasquez ; [facility], [facility] Aspirin 81 MG Oral Tablet, chewable 05/15/2024 Provi hansel: Diagnosis: Last Documented On 4 10:24AM By Colleen Velasquez ; [facility], [facility] Anastrozole 1 MG Oral Tablet 05/15/2024 Provider: Diagnosis: Last Documented On 4 10:27AM By Colleen Velasquez ; [facility], [facility] Mounjaro 7.5 MG/0.5ML Subcutaneous Solution Pen-inject or 03/30/2024 Provider: Diagnosis: Last Documented On 4 8:47AM By Colleen Velasquez ; [facility], [facility] Tamsulosin HCl 0.4 MG Oral C apsule, conventional 03/27/2024 Provider: Veda Murguia MD Diagnosis: Last Documented On 4 8:47AM By Colleen Velasquez ; [facility], [facility] Ezetimibe 10 MG Oral Tablet 03/21/2024 Provider: Davidson Gracia MD Diagnosis: Last Documented On 4 8:47AM By Colleen Velasquez ; [facility], [facility] NIFEdipine ER Osmotic Releas e 60 MG Oral Tablet, extended-release 24 hour 03/19/2024 Provider: Max Murguia MD Diagnosis: Last Documented On 4 8:47AM By Colleen Velasquez ; [facility], [facility] Carvedilol 3.125 MG Oral Tablet 02/27/2024 Provider: Veda Murguia MD Diagnosis: Last Documented On 4 8:47AM By Colleen Velasquez ; [facility], [facility] metFORMIN HCl 1000 MG Oral Tablet 02/27/2024 Provide r: Diagnosis: Last Documented On 4 8:47AM By Colleen Velasquez ; [facility], [facility] Atorvastatin Calcium 40 MG Oral Tablet 01/16/2024 Pr ovider: Diagnosis: Last Documented On 4 8:47AM By Colleen Velasquez ; [facility], [facility] Past Medications on file Cyclobenzaprine HCl 10 MG Or al Tablet 11/19/2019 - 12/09/2019 Provider: Moo Mahoney MD Diagnosis: 1 every bedtime-prn Last Documented On 0 1:35PM By Tati Velez ; [facility], [facility] Medications Administered Includes: Administered Medications from this encounter No Administered Medications Recorded Vital Signs Includes: Vital Signs from this encounter Vital Name 04/15/2021 09:18A Blood Pressure Sitting (mmHg) 136/87 Pulse Rate-Sitting (bpm) 73 Height (in) 68 Weight (lb) 190 Body Mass Index (kg/m2) 28.9 Body Surface Area (m2) 2.0 Note: ts Last Documented: On 04/15/2021 9:18AM ; [facility] Results Includes: Results discussed during this [...] 05/15/2024 Last Documented On 1 9:05AM ; [facility] Yes, current smoker. 01/05/2021 Last Documented On 1 9:05AM ; [facility] Smoker 01/05/2021 Last Documented On 1 9:05AM ; [facility] No tobacco use 10/27/2017 Last Documented On 1 9:05AM ; [facility] Smoking status : Former smoker Last Documented On 1 9:05AM ; [facility] Not a current smoker 10/27/2017 Last Documented On 1 9:05AM ; [facility] No recent change in diet 12/23/2015 Last Documented On 1 9:05AM ; [facility], [facility] Procedures and Surgical History Includes: Procedures from this encounter Procedures Code Diagnosis Performing Provider Service L ocation Service Date intervention and counseling on cessation of tobacco use 4000F Last Documented On 9:05AM ; [facility] use of tobacco assessment performed 1000F Last Documented On 9:05AM ; [facility], [facility] referral to physician for elevated blood pressure Last Documented On 1 9:06AM ; [facility], [facility] Pt received screening for fall risk G8270 Last Documented On 9:05AM ; [facility] Clinical summary provided to patient Last Documented On 1 9:05AM ; [facility], [facility] an X-ray was performed 76224 Last Documented On 9:05AM ; [facility] history of a CT scan was performed 50710 Last Documented On 9:05AM ; [facility], [facility] an MRI was performed MRI Alfredito @ [facility] 02.27.2021 [id number] Last Documented On 1 9:05AM ; [facility], [facility] Surgical History Last Updated History of total knee arthroplasty 12/23 Last Documented On 1 9:05AM ; [facility], [facility] Medical History Includes: Medical History addressed during this encounter Description Last Updated stents - 199505/28/2021 Last Documented On 1 9:05AM ; [facility], [facility] Kidney stonesHeart catheter 04/15/2021 Last Documented On 1 9:05AM ; [facility], [facility] Arthritis 01/05/2021 Last Documented On 1 9:05AM ; [facility], [facility] History of Heart Attack / Stroke 021 Last Documented On 1 9:05AM ; [facility], [facility] History of heart disease 01/05/2021 Last Documented On 1 9:05AM ; [facility], [facility] Hypertension 01/05/2021 Last Documented On 1 9:05AM ; [facility], [facility] No recent immunization for flu Last Documented On 1 9:05AM ; [facility], [facility] No recent immunization for pneumococcal pneumonia 01/05/2021 Last Documented On 1 9:05AM ; [facility], [facility] History of diabetes mellitus 12/23/2015 Last Documented On 1 9:05AM ; [facility], [facility] Intermittent hypertension 12/23/2015 Last Documented On 1 9:05AM ; [facility] Kidney disease 12/23/2015 Last Documented On 1 9:05AM ; [facility], [facility] Liver disease 12/23/2015 Last Documented On 1 9:05AM ; [facility], [facility] Family History Includes: Family History addressed during this encounter Description Last Updated Diabetes mellitus 01/05/2021 Last Documented On 1 9:05AM ; [facility], [facility] Maternal history of diabetes mellitus Last Documented On 1 9:05AM ; [facility] Maternal history of family history of he art disease 01/01/2016 Last Documented On 1 9:05AM ; [facility] Maternal history of family history of ca ncer paternal 01/01/2016 Last Documented On 1 9:05AM ; [facility] Maternal history of hypertension 016 Last Documented On 1 9:05AM ; [facility] Family history of cancer 12/23/2015 Last Documented On 1 9:05AM ; [facility] Family history of diabetes mellitus 12/02 Last Documented On 1 9:05AM ; [facility] Family history of heart disease 12/23/19 16 Last Documented On 1 9:05AM ; [facility] Family history of hypertension 6 Last Documented On 1 9:05AM ; [facility] Review of Systems Includes: Review of Systems [...] Time Diagnosis Post Op Moo Mahoney MD [facility] 1 8:57AM 10:10AM Insurance Includes: Active Insurance Policies Plan Name Member ID Group # Subscriber Relationship Effect jay Dates 1 - Medicare Part B [facility] [id number] Gordy Stiles 10/31/2023 - Unknown 2 - [employer] [id number] Gordy Stiles Clinical Notes Includes: Clinical Notes from this encounter No Clinical Notes Recorded
--- OUTSIDE RECORDS SUMMARY | 2024-06-10 10:39 | XMS_ITS | Clinical Summary ---
Author Organization [facility] , [facility] Address [address] [place] [address] Phone Care Team Providers Care Safety Lead Name Role Phone CRISTIAN RASHEED, MARYANNE Bone Unavailable [phone] Maru RASHEED, Moo Alcala Unavailable Shantal RASHEED, Veda Cox Unavailable [phone] Reason for Referral Date Encounter Description Provider [...] On 4 8:46AM ; [facility], [facility] Lower Back Pain 10/27/2017 Jeremias MONTANO-C Inactive Last Documented On 4 8:46AM ; [facility], [facility] Past Visits Onset Date Resolved Date Provider Condition Status Midback Pain 11/19/2019 Moo Mahoney MD Acti ve Last Documented On 0 1:17PM ; [facility], [facility] Arthralgia Knee / Patella / Tibia / Fibula 12/22/2015 Jonathan Mae MD Active Last Documented On 6 9:00AM ; [facility], [facility] Note: Unchanged Plan of Treatment Patient may go on to activities as tolerated. Physical therapy with core strengthening program. [id number] - Last Documented On 08/31/2021 1:11PM ; [facility] [place] [facility] Pending Tests Order Diagnosis Results Due Ordering P rovider Therapy - Physical Therapy Lumbar Fusion of spine, lumbar region 08/31/21 Moo Mahoney MD Last Documented On 1 1:11PM ; [facility], [facility] Future Appointments Date Time Location Provi hansel IN HOUSE REFERRAL 06/21/2024 8:30AM [facility] Jorge Silver MD Last Documented On 4 9:49AM ; [facility], [facility] Instructions to patient Intervention and counseling on cessation of tobacco use Last Documented On 1 8:30AM ; [facility], [facility] Assessments Includes: Assessments from this encounter Findings Successful decompression arthrodesis interbody fusion instrumentation, bone grafting, L4-5. - Last Documented On 08/31/2021 1:11PM ; [facility], [facility] Instructions Includes: Instructions from this encounter Instructions to patient Intervention and counseling on cessation of tobacco use Last Documented On 1 8:30AM ; [facility], [facility] Medical [...] Last Documented On 4 10:25AM By Colleen eVlasquez ; [facility] [place] Aspirin 81 MG Oral Tablet, chewable 05/15/2024 Provi hansel: Diagnosis: Last Documented On 4 10:24AM By Colleen Velasquez ; [facility] [place], [facility] Anastrozole 1 MG Oral Tablet 05/15/2024 Provider: Diagnosis: Last Documented On 4 10:27AM By Colleen Velasquez ; [facility], [facility] Mounjaro 7.5 MG/0.5ML Subcutaneous Solution Pen-inject or 03/30/2024 Provider: Diagnosis: Last Documented On 4 8:47AM By Colleen Velasquez ; [facility], [facility] Tamsulosin HCl 0.4 MG Oral C apsule, conventional 03/27/2024 Provider: Veda Murguia MD Diagnosis: Last Documented On 4 8:47AM By Colleen Velasquez ; [facility], [facility] Ezetimibe 10 MG Oral Tablet 03/21/2024 Provider: Davidson Gracia MD Diagnosis: Last Documented On 4 8:47AM By Colleen Velasquez ; [facility], [facility] NIFEdipine ER Osmotic Releas e 60 MG Oral Tablet, extended-release 24 hour 03/19/2024 Provider: Max Murguia MD Diagnosis: Last Documented On 4 8:47AM By Colleen Velasquez ; [facility], [facility] Carvedilol 3.125 MG Oral Tablet 02/27/2024 Provider: Veda Murguia MD Diagnosis: Last Documented On 4 8:47AM By Colleen Velasquez ; [facility], [facility] metFORMIN HCl 1000 MG Oral Tablet 02/27/2024 Provide r: Diagnosis: Last Documented On 4 8:47AM By Colleen Velasquez ; [facility], [facility] Atorvastatin Calcium 40 MG Oral Tablet 01/16/2024 Pr ovider: Diagnosis: Last Documented On 4 8:47AM By Colleen Velasquez ; [facility], [facility] Past Medications on file Neurontin 100 MG Oral Capsule 04/15/2021 - 05/01/2021 Provider: Moo Mahoney MD Diagnosis: three times a day up to 3 ti mes a day for leg pain and cramping Last Documented On 1 10:15AM By Dr. Mahoney ; [facility], [facility] Medrol 4 MG Oral Tablet Ther apy Pack 04/15/2021 - 05/15/2021 Provider: Moo Mahoney MD Diagnosis: take as directed Last Documented On 1 10:06AM By Dr. Mahoney ; [facility], [facility] Cyclobenzaprine HCl 10 MG Or al Tablet 11/19/2019 - 12/09/2019 Provider: Moo Mahoney MD Diagnosis: 1 every bedtime-prn Last Documented On 0 1:35PM By Tati Velez ; [facility], [facility] Medications Administered Includes: Administered Medications from this encounter No Administered Medications Recorded Vital Signs Includes: Vital Signs from this encounter Vital Name 08/31/2021 08:37A Blood Pressure Sitting (mmHg) 138/73 Pulse Rate-Sitting (bpm) 76 Height (in) 68 Weight (lb) 190 Body Mass Index (kg/m2) 28.9 Body Surface Area (m2) 2.0 Note: sd Last Documented: On 08/31/2021 8:38AM ; [facility] Results Includes: [...] 05/15/2024 Last Documented On 1 8:30AM ; [facility], [facility] Not exercising regularly 05/15/2024 Last Documented On 1 8:30AM ; [facility], [facility] Not using alcohol 05/15/2024 Last Documented On 1 8:30AM ; [facility], [facility] Not using drugs 05/15/2024 Last Documented On 1 8:30AM ; [facility], [facility] Yes, current smoker. 01/05/2021 Last Documented On 1 8:30AM ; [facility], [facility] Smoker 01/05/2021 Last Documented On 1 8:30AM ; [facility], [facility] No tobacco use [...] LSpine @ [facility] ~08/31/2021 LSpine @ [facility] [id number] Last Documented On 1 8:43AM ; [facility], [facility] history of a CT scan was performed [id number] Last Documented On 1 8:30AM ; [facility], [facility] an MRI was performed 02/27/2021 LSpine @ [facility] [id number] Last Documented On 1 8:30AM [...] 05/28/2021 Last Documented On 1 8:30AM ; [facility] Arthritis 01/05/2021 Last Documented On 1 8:30AM ; [facility] History of Heart Attack / Stroke 021 Last Documented On 1 8:30AM ; [facility] History of heart disease 01/05/2021 Last Documented On 1 8:30AM ; [facility] Hypertension 01/05/2021 Last Documented On 1 8:30AM ; [facility], [facility] No recent immunization for flu 1 Last Documented On 1 8:30AM ; [facility] No recent immunization for pneumococcal pneumonia 01/05/2021 Last Documented On 1 8:30AM ; [facility] History of diabetes mellitus 12/23/2015 Last Documented On 1 8:30AM ; [facility] Intermittent hypertension 12/23/2015 Last Documented On 1 8:30AM ; [facility] Kidney disease 12/23/2015 Last Documented On 1 8:30AM ; [facility] Liver disease 12/23/2015 Last Documented On 1 8:30AM ; [facility] Family History Includes: Family History addressed during this encounter Description Last Updated Diabetes mellitus 01/05/2021 Last Documented On 1 8:43AM ; [facility], [facility] Family history of cancer 12/23/2015 Last Documented On 1 8:30AM ; [facility] Family history of heart disease 12/23/19 16 Last Documented On 1 8:30AM ; [facility] Family history of hypertension 6 Last Documented On 1 8:30AM ; [facility] Review of Systems Includes: [...] Time Diagnosis Follow Up Moo Mahoney MD [facility] 1 7:59AM 8:52AM Insurance Includes: Active Insurance Policies Plan Name Member ID Group # Subscriber Relationship Effect jay Dates 1 - Medicare Part B [facility] [id number] Gordy Stiles 10/31/2023 - Unknown 2 - [facility] [id number] Gordy Stiles Clinical Notes Includes: Clinical Notes from this encounter No Clinical Notes Recorded
--- OUTSIDE RECORDS SUMMARY | 2024-06-10 10:39 | XMS_ITS | Clinical Summary ---
Author Organization [facility] , [facility] Address [address] [place] [address] Phone Care Team Providers Care [place] Packer Name Role Phone CRISTIAN RASHEED, MARYANNE Bone Unavailable [phone] Maru RASHEED, Moo Alcala Unavailable Shantal RASHEED, Veda Cox Unavailable [phone] Reason for Visit and Chief Complaint SURGERY Problems Includes: Problems addressed during this encounter and other active Problems All Visits Onset Date Resolved Date Provider Condition S tatus Midback Pain 11/19/2019 Moo Mahoney MD Acti ve Last Documented On 0 1:17PM ; [facility], [facility] Lower Back Pain 10/27/2017 Jeremias bone PA-C Active Last Documented On 4 8:46AM ; [facility], [facility] Arthralgia Knee / Patella / Tibia / Fibula 12/22/2015 Jonathan Mae MD Active Last Documented On 6 9:00AM ; [facility], [facility] Note: Unchanged Plan of Treatment Future Appointments Date Time Location Provi hansel IN HOUSE REFERRAL 06/21/2024 8:30AM [facility] Jroge Silver MD Last Documented On 4 9:49AM ; [facility], [facility] Assessments Includes: Assessments from this encounter No Assessments Recorded Medical Equipment - Implanted Devices Includes: Current Devices No Medical Equipment Recorded Medications Includes: Medications discussed during this encounter and other current Medications Current Medications (continue as prescribed) Famciclovir 500 MG Oral Tablet 05/15/2024 Provider: Diagnosis: Last Documented On 4 10:27AM By Colleen Velasquez ; [facility], [facility] Testosterone Enanthate 200 MG/ML Intramuscular Solutio n 05/15/2024 Provider: Diagnosis: Last Documented On 4 10:26AM By Colleen Velasquez ; [facility], [facility] EQL Natural Zinc 50 MG Oral Tablet 05/15/2024 Provid er: Diagnosis: Last Documented On 4 10:26AM By Colleen Velasquez ; [facility], [facility] EQL Vitamin D3 25 MCG (1000 UT) Oral Capsule, conventi onal 05/15/2024 Provider: Diagnosis: Last Documented On 4 10:25AM By Colleen Velasquez ; [facility], [facility] Vitamin C 500 MG Oral Tablet 05/15/2024 Provider : Diagnosis: Last Documented On 4 10:25AM By Colleen Velasquez ; [facility], [facility] Aspirin 81 MG Oral Tablet, chewable 05/15/2024 Provi hansel: Diagnosis: Last Documented On 4 10:24AM By Colleen Velasquez ; [facility], [facility] Anastrozole 1 MG Oral Tablet 05/15/2024 Provider: Diagnosis: Last Documented On 4 10:27AM By Colleen Velasquez ; [facility], [facility] Mounjaro 7.5 MG/0.5ML Subcutaneous Solution Pen-inject or 03/30/2024 Provider: Diagnosis: Last Documented On 4 8:47AM By Colleen Velasquez ; [facility], [facility] Tamsulosin HCl 0.4 MG Oral C apsule, conventional 03/27/2024 Provider: Veda Murguia MD Diagnosis: Last Documented On 4 8:47AM By Colleen Velasquez ; [facility], [facility] Ezetimibe 10 MG Oral Tablet 03/21/2024 Provider: Davidson Gracia MD Diagnosis: Last Documented On 4 8:47AM By Colleen Velasquez ; [facility], [facility] NIFEdipine ER Osmotic Releas e 60 MG Oral Tablet, extended-release 24 hour 03/19/2024 Provider: Max Murguia MD Diagnosis: Last Documented On 4 8:47AM By Colleen Velasquez ; [facility], [facility] Carvedilol 3.125 MG Oral Tablet 02/27/2024 Provider: Veda Murguia MD Diagnosis: Last Documented On 4 8:47AM By [facility] metFORMIN HCl 1000 MG Oral Tablet 02/27/2024 Provide r: Diagnosis: Last Documented On 4 8:47AM By [facility] Atorvastatin Calcium 40 MG Oral Tablet 01/16/2024 Pr ovider: Diagnosis: Last Documented On 4 8:47AM By [facility], [facility] Medications Administered Includes: Administered Medications [...] Check-Out Time Diagnosis SURGERY Moo Mahoney MD [facility] 1 8:07AM 11:59PM Insurance Includes: Active Insurance Policies Plan Name Member ID Group # Subscriber Relationship Effect jay Dates 1 - Medicare Part B [facility] [id number] Gordy Parry Self 10/31/2023 - Unknown 2 - [employer] [id number] Gordy Stiles Clinical Notes Includes: Clinical Notes from this encounter No Clinical Notes Recorded
--- OUTSIDE RECORDS SUMMARY | 2024-06-10 10:39 | XMS_ITS ---
Care Plan - [facility], [facility] Created on: June 10, 2024 Parry Gordy Camarena : 1955 Sex: Male Author Organization [facility] , [facility] Address [address] [place] [address] Phone Care Team Providers Care Nuclear Operator Name Role Phone CRISTIAN RASHEED, MARYANNE Bone Unavailable [phone] Maru RASHEED, Moo Unavailable Unavailable Shantal RASHEED, Veda Cox Unavailable [phone]
--- NOTE | 2024-06-10 10:58 | PC.NURSE ---
report called to Sangita at [facility]
[2024-06-10] MEDS: ONDANSETRON 4MG/2ML VIAL 4 MG IV (11:40)
[2024-06-10] MEDS: HYDROMORPHONE 2MG/ML SYRINGE 2 MG IM (11:41)
== END 2024-06-10 11:58 | disposition short-term general hospital (02) | DRG 683 ==
LOC: ER 06-10 00:21 → 2ND 06-10 01:10
PROVIDERS: Admitting Provider Family Medicine; Emergency Provider Emergency Medicine; PCP Family Medicine; Visit Provider Family Medicine
DX: N17.9 Acute kidney failure, unspecified (principal); N20.1 Calculus of ureter; F17.210 Nicotine dependence, cigarettes, uncomplicated; E11.69 Type 2 diabetes mellitus with other specified complication; Z79.899 Other long term (current) drug therapy
CPT/HCPCS: 74176; 80053; 81001; 85025; 87086; 99285; J1170; J1885; J2270; J2405; J7120

== ENCOUNTER 2024-10-29 09:00 | Outpatient (RCR) | payer MEDICARE, OTHER, SELFPAY | END 2024-10-29 23:59 | disposition home or self-care (01) | LOC: PT 09:00 | PROVIDERS: Visit Provider Orthopaedic Surgery | DX: M25.562 Pain in left knee (principal); Z98.890 Other specified postprocedural states | CPT/HCPCS: 97010; 97014; 97110; 97140; 97163; 97530; G0283 ==

== ENCOUNTER 2024-11-26 10:00 | Outpatient (RCR) | payer MEDICARE, OTHER, SELFPAY | END 2024-11-26 23:59 | disposition home or self-care (01) | LOC: PT 10:00 | PROVIDERS: Visit Provider Orthopaedic Surgery | DX: Z98.890 Other specified postprocedural states (principal); Z96.652 Presence of left artificial knee joint | CPT/HCPCS: 97014; 97016; 97110; 97140; 97530; G0283 ==

== ENCOUNTER 2024-12-28 09:00 | Outpatient (RCR) | payer MEDICARE, OTHER, SELFPAY | END 2024-12-28 23:59 | disposition home or self-care (01) | LOC: PT 09:00 | PROVIDERS: Visit Provider Orthopaedic Surgery | DX: Z96.652 Presence of left artificial knee joint (principal) | CPT/HCPCS: 97014; 97016; 97110; 97530; G0283 ==

== ENCOUNTER 2025-01-28 10:00 | Outpatient (RCR) | payer MEDICARE, OTHER, SELFPAY | END 2025-01-28 23:59 | disposition home or self-care (01) | LOC: PT 10:00 | PROVIDERS: Visit Provider Orthopaedic Surgery | DX: Z96.652 Presence of left artificial knee joint (principal) | CPT/HCPCS: 97014; 97016; 97110; 97530; G0283 ==

== ENCOUNTER 2025-04-24 22:02 | Emergency (ER) | payer MEDICARE, OTHER, SELFPAY ==
--- OUTSIDE RECORDS SUMMARY | 2023-11-21 10:05 | XMS_ITS | Continuity of Care Document ---
Author Organization [facility] o Address [address] [place] [address] Phone Care Team Providers Care Shipping Receiving Manager Name Role Phone Jeovany Cruz MD Unavailable Unavailable Procedures Procedure Date Office/outpatient visit,[facility] 2023 X-ray exam of knee, 3 views X-ray exam of pelvis, 1-2 views 024 Advance Directives Directive Yes / No Effective Date File Name No Information Encounters Encounter Description Practice Location Reason(s) For Visit Diagnoses Date Provider Providers Copied on Encounter Office/outpat ient visit,[facility], [address] [place], [address], [place] tel:[phone] Lulu Dooley left knee pain (chief complaint) Unilateral primary osteoarthrit is, left kneePain in left knee [address] Thayer. [address] [place], [address], [place]. tel:[phone] Referring Provider: Jeovany Cruz L, [address] [place] [facility] [place], [address]. tel:[phone] Family History Family Member Type Diagnosis Age At Onset No Information Payers Payer name Insurance type Covered alliance party ID Authoriza tion(s) Medicare [place] MB [id number] [facility] Life Insurance CI [id number] Social History Type Description Quantity Date Captured Comments Alcohol Use Details Unknown Caffeine Use Details Unknown Tobacco Use Status No Information Smoking Status No Information Non-Smoking Tobacco Use Details : No Details Available : No Details Available Sex Male Vital Signs Date / Time: Height Weight BMI Pulse Rate Blood Pressure Temperature Respiratory Rate Body Surface Area Head Circumference Head Circ. Percentile Wt./Loki. Percentile BMI percentile Pulse Ox Inhaled Ox 1:50 PM 68.00 in 83.915 kg (185.00 lbs) 28.1 3 kg/m eter (2) 2:02 PM 67.00 in 87.090 kg (192.00 lbs) 30.0 7 kg/m eter (2) Chief Complaint And Reason For Visit From encounter dated '11/21/2023 14:05'. left knee pain (chief complaint) Reason For Referral Reason For Referral No Information History Of Present Illness Encounter Date Complaint History Of Prese nt Illness Comments: he has a long history of left knee pain with a meniscus tear about 40 years ago. he had intermittent pain since that time. over the past 18 months, the pain has increased to the point that it interferes with daily life. he has difficulty walking > 5 minutes, stairs, putting shoes socks on. he had inejctions a couple of years ago, pt, anibal theodoreenol left knee pain Onset: gradual. Severity level is moderate-severe. It occurs intermittently and is worsening. Location: left knee. There is no radiation. The pain is aching, dull and sharp. Context: there is no injury. There are no associated symptoms. Pertinent negatives include bruising, crepitus, decreased mobility, difficulty initiating sleep, joint instability, joint tenderness, limping, locking, nocturnal awakening, nocturnal pain, numbness, popping, spasms, swelling, tingling in the arms, tingling in the legs and weakness. Hand Dominance: right. Functional Status Date Functional Assessmen t No Information Instructions Date Instruction Additional Infor robin Standing AP, lateral , inflexion, and Merchant views of left knee[s] were ordered, obtained and read in the office today. They demonstrate severe loss of the joint space along the medial aspect. he has bone on bone arthritis of his medial compartment on his ap and lateral view. Related to Unilateral primary osteoarthritis, left knee Assessments Type Assessment Date assessment Unilateral primary osteoarthriti s, left knee impression he has bone on bone arthritis of the medial compartment of the left knee and is a candidate for total knee replacement. i have written for pt and meloxicam and will see him back on a preoperative or prn basis Patient Care Teams Name Effective Dates (start - stop) Status Members No Information
[2025-04-24 22:17] VITALS: BP 179/93; PULSE 75; RESP 18; TEMP 37; O2SAT 97; BMI 27.3
--- OUTSIDE RECORDS SUMMARY | 2025-04-24 22:18 | XMS_ITS | Data Portability ---
Author Organization [facility]elope[facility], [facility] CLOSED Address [address] [facility] [place] [address] Care Team Providers Care Certified Breastfeeding Educator Name Role Phone MICKY PORTILLO Primary Care Provider Assessment Encounter Date Assessment Date Assessment LastModified by Organization Details LastModified Time 06/21/2024 06/21/2024 69 year old male with recurrent urolithiasis. He has undergone numerous stone procedures over the years with Dr. Martinez. He was admitted to [facility] 06/11/24 for bilateral ureteral stones and HORTENSIA. A CT scan at [facility] by report showed 7 mm right mid ureteral, 8.5 mm left mid ureteral, 6 mm right renal, and left renal stones. He underwent bilateral ureteroscopic laser lithotripsy and left stent placement by Dr. Rothman. He tolerated the stent removal well. He says he really liked Dr. Rothman and would like to follow-up with him again. He is interested in stone prevention. He says he had a 24 hour urine many years ago but, would like another sent to his house to check again. He will follow-up in 3 months to discus results with Dr. Rothman. Plan: 24 hour urine test. Follow-up in 3 months. lex Not available 06/21/2024 14:51:59 07/26/2024 07/26/2024 patient came into the office to have his stents removed post op. pt tolerated removal well without any complications. [email or web address] Not available 07/26/2024 14:35:16 Plan of Treatment Reminders Order Date Submit Date Provider Last Modified By Organization Details Last Modified Time Details Appointments None recorded. Lab urinalysis panel, auto 2023 024 [facility], [address], [place], [address], 4 16:37:50 urinalysis panel, auto 2020 021 [facility], [address], [place], [address], 16:56:17 Referral None recorded. Procedures None recorded. Surgeries cystoscopy (SURG) 2020 022 [email or web address] [facility], [address] [facility], [place], [address], 2 08:37:[address], abdomen + pelvis, w/wo contrast 2020 021 NATALIE Not available 11:08:48 Medication Orders None recorded. Patient TargetsNo targets recorded. Patient InstructionsNo instructions recorded. Reason for Referral None Reported. Results Created Date Observation Date Name Description Value Unit Range Abnormal Flag Note LastModifiedBy Organization Detail LastModifiedTime 10/13/2010/13/2021 urina lysis panel , auto Unknown Analyte Clean Catch Not Available [facility] [address], [place], [address], 10/13/2021 15:26:51 10/13/2010/13/2021 urina lysis panel , auto Unknown Analyte Joy Not Available [facility] [address], [place], [address], 10/13/2021 15:26:51 10/13/20 21 10/13/2021 urina lysis panel , auto Unknown Analyte Hazy Not Available [facility] [address], [place], [address], 10/13/2021 15:26:51 10/13/20 21 10/13/2021 urina lysis panel , auto Unknown Analyte 1.020 Not Available [facility] [address], [place], [address], 10/13/2021 15:26:51 10/13/20 21 10/13/2021 urina lysis panel , auto Unknown Analyte 1.003- 1.035 Not Available [facility] [address], [place], [address], 10/13/2021 15:26:51 10/13/20 21 10/13/2021 urina lysis panel , auto Unknown Analyte 5.0 Not Available [facility] [address], [place], [address], 10/13/2021 15:26:51 10/13/20 21 10/13/2021 urina lysis panel , auto Unknown Analyte 5.0-8. 0 Not Available [facility] [address], [place], [address], 10/13/2021 15:26:51 10/13/20 21 10/13/2021 urina lysis panel , auto Unknown Analyte 500 Aristides/ul (++) Not Available [facility] [address], [place], [address], 10/13/2021 15:26:51 10/13/20 21 10/13/2021 urina lysis panel , auto Unknown Analyte Negati ve Not Available [facility] [address], [place], [address], 10/13/2021 15:26:51 10/13/20 21 10/13/2021 urina lysis panel , auto Unknown Analyte Negati ve Not Available [facility] [address], [place], [address], 10/13/2021 15:26:51 10/13/2010/13/2021 urina lysis panel , auto Unknown Analyte Negati ve Not Available [facility] [address], [place], [address], 10/13/2021 15:26:51 10/13/2010/13/2021 urina lysis panel , auto Unknown Analyte 30 mg/dl (+) Not Available [facility] [address], [place], [address], 10/13/2021 15:26:51 10/13/20 21 10/13/2021 urina lysis panel , auto Unknown Analyte Negati ve Not Available [facility] [address], [place], [address], 10/13/2021 15:26:51 10/13/20 21 10/13/2021 urina lysis panel , auto Unknown Analyte 250 mg/dl Not Available [facility] [address], [place], [address], 10/13/2021 15:26:51 10/13/20 10/13/2021 urina lysis panel , auto Unknown Analyte Normal Not Available [facility] [address], [place], [address], 10/13/2021 15:26:51 10/13/20 21 10/13/2021 urina lysis panel , auto Unknown Analyte 15 mg/dl (Sm) Not Available [facility] [address], [place], [address], 10/13/2021 15:26:51 10/13/2010/13/2021 urina lysis panel , auto Unknown Analyte Negati ve Not Available [facility] [address], [place], [address], 10/13/2021 15:26:51 10/13/2010/13/2021 urina lysis panel , auto Unknown Analyte 1 mg/dl Not Available [facility] [address], [place], [address], 10/13/2021 15:26:51 10/13/20 21 10/13/2021 urina lysis panel , auto Unknown Analyte Normal 1 mg/dl Not Available [facility] [address], [place], [address], 10/13/2021 15:26:51 10/13/20 21 10/13/2021 urina lysis panel , auto Unknown Analyte 1 mg/dl (+) Not Available [facility] [address], [place], [address], 10/13/2021 15:26:51 10/13/20 21 10/13/2021 urina lysis panel , auto Unknown Analyte Negati ve Not Available [facility] [address], [place], [address], 10/13/2021 15:26:51 10/13/20 21 10/13/2021 urina lysis panel , auto Unknown Analyte 250 Ariana/ul Not Available [facility] [address], [place], [address], 10/13/2021 15:26:51 10/13/2010/13/2021 urina lysis panel , auto Unknown Analyte Negati ve Not Available [facility] [address], [place], [address], 10/13/2021 15:26:51 03/17/20 23 03/17/2023 urina lysis panel , auto Unknown Analyte Clean Catch Not Available [facility] [address], [place], [address], 03/17/2023 16:54:50 03/17/20 23 03/17/2023 urina lysis panel , auto Unknown Analyte Yellow Not Available [facility] [address], [place], [address], 03/17/2023 16:54:50 03/17/20 23 03/17/2023 urina lysis panel , auto Unknown Analyte Slight ly Hazy Not Available [facility] [address], [place], [address], 03/17/2023 16:54:50 03/17/20 23 03/17/2023 urina lysis panel , auto Unknown Analyte 1.015 Not Available [facility] [address], [place], [address], 03/17/2023 16:54:50 03/17/20 23 03/17/2023 urina lysis panel , auto Unknown Analyte 1.003- 1.035 Not Available [facility] [address], [place], [address], 03/17/2023 16:54:50 03/17/20 23 03/17/2023 urina lysis panel , auto Unknown Analyte 5.0 Not Available [facility] [address], [place], [address], 03/17/2023 16:54:50 03/17/20 23 03/17/2023 urina lysis panel , auto Unknown Analyte 5.0-8. 0 Not Available [facility] [address] [facility] [address], [place], [address], 03/17/2023 16:54:50 03/17/20 23 03/17/2023 urina lysis panel , auto Unknown Analyte 25 Aristides/ul Trace Not Available [facility] [address], [place], [address], 03/17/2023 16:54:50 03/17/20 23 03/17/2023 urina lysis panel , auto Unknown Analyte Negati ve Not Available [facility] [address], [place], [address], 03/17/2023 16:54:50 03/17/20 23 03/17/2023 urina lysis panel , auto Unknown Analyte Negati ve Not Available [facility] [address], [place], [address], 03/17/2023 16:54:50 03/17/20 23 03/17/2023 urina lysis panel , auto Unknown Analyte Negati ve Not Available [facility] [address], [place], [address], 03/17/2023 16:54:50 03/17/20 23 03/17/2023 urina lysis panel , auto Unknown Analyte 100 mg/dl (++) Not Available [facility] [address], [place], [address], 03/17/2023 16:54:50 03/17/20 23 03/17/2023 urina lysis panel , auto Unknown Analyte Negati ve Not Available [facility] [address], [place], [address], 03/17/2023 16:54:50 03/17/20 23 03/17/2023 urina lysis panel , auto Unknown Analyte >1000 mg/dl Not Available [facility] [address], [place], [address], 03/17/2023 16:54:50 03/17/20 23 03/17/2023 urina lysis panel , auto Unknown Analyte Normal Not Available [facility] [address], [place], [address], 03/17/2023 16:54:50 03/17/20 23 03/17/2023 urina lysis panel , auto Unknown Analyte Negati ve Not Available [facility] [address], [place], [address], 03/17/2023 16:54:50 03/17/20 23 03/17/2023 urina lysis panel , auto Unknown Analyte Negati ve Not Available [facility] [address], [place], [address], 03/17/2023 16:54:50 03/17/20 23 03/17/2023 urina lysis panel , auto Unknown Analyte Normal Not Available [facility] [address], [place], [address], 03/17/2023 16:54:50 03/17/20 23 03/17/2023 urina lysis panel , auto Unknown Analyte Normal 1 mg/dl Not Available [facility] [address], [place], [address], 03/17/2023 16:54:50 03/17/20 23 03/17/2023 urina lysis panel , auto Unknown Analyte Negati ve Not Available [facility] [address], [place], [address], 03/17/2023 16:54:50 03/17/20 23 03/17/2023 urina lysis panel , auto Unknown Analyte Negati ve Not Available [facility] [address], [place], [address], 03/17/2023 16:54:50 03/17/20 23 03/17/2023 urina lysis panel , auto Unknown Analyte 250 Ariana/ul Not Available [facility] [address], [place], [address], 03/17/2023 16:54:50 03/17/20 23 03/17/2023 urina lysis panel , auto Unknown Analyte Negati ve Not Available [facility] [address], [place], [address], 03/17/2023 16:54:50 01/24/20 24 01/24/2024 urina lysis panel , auto Unknown Analyte Clean Catch Not Available [facility] [address], [place], [address], 01/24/2024 15:33:12 01/24/20 24 01/24/2024 urina lysis panel , auto Unknown Analyte Yellow Not Available [facility] [address], [place], [address], 01/24/2024 15:33:12 01/24/20 24 01/24/2024 urina lysis panel , auto Unknown Analyte Clear Not Available [facility] [address], [place], [address], 01/24/2024 15:33:12 01/24/20 24 01/24/2024 urina lysis panel , auto Unknown Analyte 1.010 Not Available [facility] [address], [place], [address], 01/24/2024 15:33:12 01/24/20 24 01/24/2024 urina lysis panel , auto Unknown Analyte 1.003- 1.035 Not Available [facility] [address], [place], [address], 01/24/2024 15:33:12 01/24/20 24 01/24/2024 urina lysis panel , auto Unknown Analyte 5.0 Not Available [facility] [address], [place], [address], 01/24/2024 15:33:12 01/24/20 24 01/24/2024 urina lysis panel , auto Unknown Analyte 5.0-8. 0 Not Available [facility] [address], [place], [address], 01/24/2024 15:33:12 01/24/20 24 01/24/2024 urina lysis panel , auto Unknown Analyte Negati ve Not Available [facility] [address], [place], [address], 01/24/2024 15:33:12 01/24/20 24 01/24/2024 urina lysis panel , auto Unknown Analyte Negati ve Not Available [facility] [address], [place], [address], 01/24/2024 15:33:12 01/24/20 24 01/24/2024 urina lysis panel , auto Unknown Analyte Negati ve Not Available [facility] [address], [place], [address], 01/24/2024 15:33:12 01/24/20 24 01/24/2024 urina lysis panel , auto Unknown Analyte Negati ve Not Available [facility] [address], [place], [address], 01/24/2024 15:33:12 01/24/20 24 01/24/2024 urina lysis panel , auto Unknown Analyte Trace Not Available [facility] [address], [place], [address], 01/24/2024 15:33:12 01/24/20 24 01/24/2024 urina lysis panel , auto Unknown Analyte Negati ve Not Available [facility] [address], [place], [address], 01/24/2024 15:33:12 01/24/20 24 01/24/2024 urina lysis panel , auto Unknown Analyte >1000 mg/dl Not Available [facility] [address], [place], [address], 01/24/2024 15:33:12 01/24/20 24 01/24/2024 urina lysis panel , auto Unknown Analyte Normal Not Available [facility] [address], [place], [address], 01/24/2024 15:33:12 01/24/20 24 01/24/2024 urina lysis panel , auto Unknown Analyte Negati ve Not Available [facility] [address], [place], [address], 01/24/2024 15:33:12 01/24/20 24 01/24/2024 urina lysis panel , auto Unknown Analyte Negati ve Not Available [facility] [address], [place], [address], 01/24/2024 15:33:12 01/24/20 24 01/24/2024 urina lysis panel , auto Unknown Analyte Normal Not Available [facility] [address], [place], [address], 01/24/2024 15:33:12 01/24/20 24 01/24/2024 urina lysis panel , auto Unknown Analyte Normal 1 mg/dl Not Available [facility] [address], [place], [address], 01/24/2024 15:33:12 01/24/20 24 01/24/2024 urina lysis panel , auto Unknown Analyte Negati ve Not Available [facility] [address], [place], [address], 01/24/2024 15:33:12 01/24/20 24 01/24/2024 urina lysis panel , auto Unknown Analyte Negati ve Not Available [facility] [address], [place], [address], 01/24/2024 15:33:12 01/24/20 24 01/24/2024 urina lysis panel , auto Unknown Analyte 50 Arinaa/ul Not Available [facility] [address], [place], [address], 01/24/2024 15:33:12 01/24/20 24 01/24/2024 urina lysis panel , auto Unknown Analyte Negati ve Not Available [facility] [address], [place], [address], 01/24/2024 15:33:12 10/13/20 21 10/13/2021 XR, abdom en, 1 view No observ ation record ed. [facility] [address], [place], [address], 10/14/2021 12:39:50 10/27/20 21 10/27/2021 CT, abdom en + pelvi s, w/wo contr ast [place] [facility] [address] [facility] [address] Patien t Name: LOUANN sweeney : 955 Patinancie sweeney 0 Orderi ng Provid er: RACHEL MARTINEZ EXAM DATE: 2020 EXAM: CT HEMATU ELÍAS PROTOC OL CLINIC AL INFORM ATION: Gross hematu elías. Histor y of stones . TECHNI QUE: A baseli ne serum creati nine with eGFR was obtain ed prior to inject ion of contra st medium due to the patien ts risk factor s for ALFIE. Calcul ated eGFR at time of exam was GFR >[address] images of the abdome n were obtain ed before and in the combin ed nephro graphi c and excret ory phases after a split bolus inject ion of 100 mL Optira y 320 (1 x 100 mL bottle of [facility] [address]- 1323-1 1). None was wasted and discar ded. Bowel was marked with water. COMPAR SADIA: None. FINDIN GS ON CT ABDOME N: LOWER THORAX : Lung bases are clear. No obviou s cardia c abnorm ality. URINAR Y TRACT: Both kidney s are normal in locati on, size, shape, outlin e and parenc hymal thickn ess. 2 mm nonobs tructi ng stones are seen in the right kidney . 4-12 mm, 500-70 [address] [facility] nonobs tructi ng stones are seen in the left kidney . 13 x 5 mm -15 x 6 mm, 1100-1 200 [facility] nonobs tructi ng stones are seen in the left renal pelvis . No stones are seen in the ureter s. A tiny 2 mm stone is seen in the urinar y bladde r. Nephro graphi c phase shows normal parenc hymal enhanc ement bilate rally withou t delay. 0.5-2 cm diamet er simple and high attenu ation cysts are seen in both kidney s. Excret ory phase shows adequa te opacif icatio n of collec ting system s and ureter s withou t dilata tion or fillin g defect . Urinar y bladde r is normal in outlin e and wall thickn ess withou t fillin g defect or mass. OTHER UPPER ABDOMI NAL ORGANS : Liver, gallbl adder, spleen , pancre as, and left adrena l are normal . There is a 12 mm, 4 [facility] benign nodule in the right adrena l gland. BOWEL AND MESENT ARIANA: Stomac h, small bowel and colon are normal . No mesent young lympha denopa thy or perito chandra free fluid. RETROP ERITON EUM: Aorta shows athero sclero tic calcif icatio ns with normal aortic calibe r. IVC and branch es are patent and normal . No retrop eriton eal lympha denopa thy. BODY WALL AND MUSCUL OSKELE TRIP STRUCT URES: Degene rative change s of the lumbar spine are noted. Surgic al hardwa re is seen in the lower lumbar spine. Anteri or abdomi nal wall is normal . FINDIN GS ON CT PELVIS : PELVIC CAVITY : Sigmoi d divert iculos is is noted withou t eviden ce of divert iculit is. Urinar y bladde r is normal . Semina l vesicl es are normal . Prosta te is enlarg ed. No pelvic or inguin al lympha denopa thy, mass or fluid. MUSCUL OSKELE TRIP STRUCT URES: Normal . COMBIN ED IMPRES SHAHLA: 1. Multip le bilate ral renal stones , left renal pelvis stone, and urinar y bladde r stone. 2. No CT eviden ce of urinar y tract neopla sm. 3. Simple and high attenu ation cysts in both kidney s. 4. Small benign right adrena l adenom a. No furthe r evalua tion is necess jabari. Interp reted By: Chin Vinson MD Electr onical ly Signed By: Chin Vinson MD on 2020 11:03 AM [facility] Radiology [facility] [address] [place] [address], [address], 10/29/2021 12:24:04 03/17/20 23 03/17/2023 CT, abdom en + pelvi s, w/o contr ast [place] [address] [place] [address] Patien t Name: LOUANN VILLEGAS Patinancie t : 955 Patien t 0 Orderi ng Provid er: RACHEL MARTINEZ EXAM DATE: 2022 EXAM: CT R/O KIDNEY STONES (A/P W/O) CLINIC AL INFORM ATION: Left flank pain. TECHNI QUE: Multip le axial CT images of the abdome n and pelvis were obtain ed withou t inject ion of IV contra st using the urinar y stone protoc ol. COMPAR SADIA: None. FINDIN GS ON CT ABDOME N: LOWER THORAX : Calcif ied granul omata are seen in the lungs. Aortic valve and desai ry artery calcif icatio ns are seen. URINAR Y TRACT: Both kidney s are normal in locati on, size, shape, outlin e and parenc hymal thickn ess. Multip le 2-13 mm nonobs tructi ng stones are seen in the kidney s and left renal pelvis . No stones or calcif icatio ns are seen within the ureter s or urinar y bladde r. No hydron ephros is, hydrou reter or perine phric strand ing is presen t. Previo usly seen high attenu ation and simple renal cysts are stable . OTHER UPPER ABDOMI NAL ORGANS : Liver, gallbl adder, spleen , pancre as, and adrena ls are normal within the limits on interp retati on impose d by the absenc e of IV contra st. BOWEL AND MESENT ARIANA: Stomac h, small bowel and colon are normal . No mesent young lympha denopa thy or perito chandra free fluid. RETROP ERITON EUM:Li mited evalua tion due to absenc e of IV contra st. Aorta shows athero sclero tic calcif icatio ns with normal aortic calibe r. IVC and branch es are normal . No retrop eriton eal lympha denopa thy. BODY WALL AND MUSCUL OSKELE TRIP STRUCT URES: Degene rative change s of the lumbar spine are noted. Anteri or abdomi nal wall is normal . FINDIN GS ON CT PELVIS : PELVIC CAVITY : Urinar y bladde r and rectos igmoid are normal . Prosta te gland is mildly enlarg ed. No pelvic or inguin al lympha denopa thy, mass or fluid. MUSCUL OSKELE TRIP STRUCT URES: Normal . COMBIN ED IMPRES SHAHLA: 1. Bilate ral renal stones . 2. Nonobs tructi ng left renal pelvis stone. 3. No ureter ic stone or eviden ce of ureter ic obstru ction. Interp reted By: Chin Vinson MD Electr onical ly Signed By: Chin Vinson MD on 023 4:11 PM [facility] Radiology [address], [phone], 03/18/2023 09:57:32 07/06/20 24 07/06/2024 CT, abdom en + pelvi s, w/wo contr ast [address] [address] Patien t Name: LOUANN VILLEGAS Patinancie sweeney : 89 Patien t 0 Orderi ng Provid er: STEPKHUSHBU Mamta Cassie ROTHMAN EXAM DATE: 2023 EXAM: CT ABD/PE LVIS W/WO CONTRA ST CLINIC AL INFORM ATION: Kidney stone TECHNI QUE: A baseli ne serum creati nine with eGFR was obtain ed prior to inject ion of contra st medium due to the patien ts risk factor s for ALFIE. Calcul ated eGFR at time of exam was [address] images of the abdome n were obtain ed before and in the combin ed nephro graphi c and excret ory phases after a split inject ion of 100 mL Omnipa que 350 (1 x 100 mL bottle of [facility] [address]9 1). none was wasted and discar ded. No oral contra st or water was admini stered to the patien t. CT IVP images were create d on a 3D workst at[employer]. COMPAR SADIA: [address] ABDOME N: LOWER THORAX : Lung bases are clear. No obviou s cardia c abnorm ality. URINAR Y TRACT: Both kidney s are normal in locati on, size, shape, outlin e and parenc hymal thickn ess. Bilate ral kidney stones are presen t. There are puncta te on the right. On the left there are multip le cluste rs and there is a tiny puncta te stone in the left renal pelvis . 9 mm nonobs tructi ve stone in the distal right ureter . The left ureter is mildly promin ent in calibe r althou gh no defini te stones are presen t in the mid to distal ureter on the left.. Nephro graphi c phase shows normal parenc hymal enhanc ement bilate rally withou t delay. Benign -appea ring bilate ral renal cysts are presen t. There is a high densit y cyst presen t in the anteri or right kidney measur ing 12 mm which is stable . Stable 9 mm high densit y cyst involv ing the inferi or anteri or left kidney . Stable 9 mm high densit y cyst geodesist ior left kidney . Mild promin ence of the calibe r of the left renal pelvis is noted althou gh this is unchan ged. Excret ory phase shows adequa te opacif icatio n of collec ting system s and ureter s withou t dilata tion or fillin g defect . Urinar y bladde r is normal in outlin e and wall thickn ess withou t fillin g defect or mass. OTHER UPPER ABDOMI NAL ORGANS : Liver, gallbl adder, spleen , pancre as, and adrena ls are normal . BOWEL AND MESENT ARIANA: Stomac h, small bowel and colon are normal . No mesent young lympha denopa thy or perito chandra free fluid. RETROP ERITON EUM: Aorta, IVC and their branch es are patent and normal . No retrop eriton eal lympha denopa thy. ABDOMI NAL WALL AND SKELET AL STRUCT URES: Normal . FINDIN GS ON CT PELVIS : PELVIC CAVITY : Urinar y bladde r and rectos igmoid are normal . The prosta te is enlarg ed. No pelvic or inguin al lympha denopa thy, mass or fluid. MUSCUL OSKELE TRIP STRUCT URES: Normal . COMBIN ED IMPRES SHAHLA: 1. Bilate ral renal stones with sizabl e stone in the distal right ureter . Mild promin ence of the calibe r of the left ureter is noted and there is also mild promin ence of left renal pelvis which harbor s a puncta te stone which is smalle r than the stone seen on the prior study 2. There are 3 high densit y cysts which are stable . Additi onally there are benign -appea ring cysts bilate rally. 3. Enlarg ed prosta te Interp reted By: Shiv Whitaker MD Electr onical ly Signed By: Shiv Whitaker MD on 07/06/20 24 12:20 PM [facility] Radiology [address], [phone], 07/22/2024 11:47:16 Result Notes Documentation Provider Name and Address Organization Details Recorded Time Ct, Abdomen + Pelvis, W/wo Contrast : [address] [address] Patient Name: LOUANN VILLEGAS Patient : 1955 Patient Ordering Provider: RACHEL MARTINEZ EXAM DATE: 10/27/2021 EXAM: CT HEMATURIA PROTOCOL CLINICAL INFORMATION: Gross hematuria. History of stones. TECHNIQUE: A baseline serum creatinine with eGFR was obtained prior to injection of contrast medium due to the patients risk factors for ALFIE. Calculated eGFR at time of exam was GFR >[address] images of the abdomen were obtained before and in the combined nephrographic and excretory phases after a split bolus injection of 100 mL Optiray 320 (1 x 100 mL bottle of [facility] [address]-91). None was wasted and discarded. Bowel was marked with water. COMPARISON: None. FINDINGS ON CT ABDOMEN: LOWER THORAX: Lung bases are clear. No obvious cardiac abnormality. URINARY TRACT: Both kidneys are normal in location, size, shape, outline and parenchymal thickness. 2 mm nonobstructing stones are seen in the right kidney. 4-12 mm, 500-700 Hounsfield unit nonobstructing stones are seen in the left kidney. 13 x 5 mm -15 x 6 mm, 9536-9755 Hounsfield unit nonobstructing stones are seen in the left renal pelvis. No stones are seen in the ureters. A tiny 2 mm stone is seen in the urinary bladder. Nephrographic phase shows normal parenchymal enhancement bilaterally without delay. 0.5-2 cm diameter simple and high attenuation cysts are seen in both kidneys. Excretory phase shows adequate opacification of collecting systems and ureters without dilatation or filling defect. Urinary bladder is normal in outline and wall thickness without filling defect or mass. OTHER UPPER ABDOMINAL ORGANS: Liver, gallbladder, spleen, pancreas, and left adrenal are normal. There is a 12 mm, 4 Hounsfield unit benign nodule in the right adrenal gland. BOWEL AND MESENTERY: Stomach, small bowel and colon are normal. No mesenteric lymphadenopathy or peritoneal free fluid. RETROPERITONEUM: Aorta shows atherosclerotic calcifications with normal aortic caliber. IVC and branches are patent and normal. No retroperitoneal lymphadenopathy. BODY WALL AND MUSCULOSKELETAL STRUCTURES: Degenerative changes of the lumbar spine are noted. Surgical hardware is seen in the lower lumbar spine. Anterior abdominal wall is normal. FINDINGS ON CT PELVIS: PELVIC CAVITY: Sigmoid diverticulosis is noted without evidence of diverticulitis. Urinary bladder is normal. Seminal vesicles are normal. Prostate is enlarged. No pelvic or inguinal lymphadenopathy, mass or fluid. MUSCULOSKELETAL STRUCTURES: Normal. COMBINED IMPRESSION: 1. Multiple bilateral renal stones, left renal pelvis stone, and urinary bladder stone. 2. No CT evidence of urinary tract neoplasm. 3. Simple and high attenuation cysts in both kidneys. 4. Small benign right adrenal adenoma. No further evaluation is necessary. Interpreted By: Nirav Vinson MD EL MARTINEZ MD [address] [place] [address], [phone], [facility] 10/29/2021 12:24:04 Ct, Abdomen + Pelvis, W/o Contrast : [address] [place] [address] Patient Name: LOUANN VILLEGAS Patient : 1955 Patient Ordering Provider: RACHEL MARTINEZ EXAM DATE: 03/17/2023 EXAM: CT R/O KIDNEY STONES (A/P W/O) CLINICAL INFORMATION: Left flank pain. TECHNIQUE: Multiple axial CT images of the abdomen and pelvis were obtained without injection of IV contrast using the urinary stone protocol. COMPARISON: None. FINDINGS ON CT ABDOMEN: LOWER THORAX: Calcified granulomata are seen in the lungs. Aortic valve and coronary artery calcifications are seen. URINARY TRACT: Both kidneys are normal in location, size, shape, outline and parenchymal thickness. Multiple 2-13 mm nonobstructing stones are seen in the kidneys and left renal pelvis. No stones or calcifications are seen within the ureters or urinary bladder. No hydronephrosis, hydroureter or perinephric stranding is present. Previously seen high attenuation and simple renal cysts are stable. OTHER UPPER ABDOMINAL ORGANS: Liver, gallbladder, spleen, pancreas, and adrenals are normal within the limits on interpretation imposed by the absence of IV contrast. BOWEL AND MESENTERY: Stomach, small bowel and colon are normal. No mesenteric lymphadenopathy or peritoneal free fluid. RETROPERITONEUM:Limited evaluation due to absence of IV contrast. Aorta shows atherosclerotic calcifications with normal aortic caliber. IVC and branches are normal. No retroperitoneal lymphadenopathy. BODY WALL AND MUSCULOSKELETAL STRUCTURES: Degenerative changes of the lumbar spine are noted. Anterior abdominal wall is normal. FINDINGS ON CT PELVIS: PELVIC CAVITY: Urinary bladder and rectosigmoid are normal. Prostate gland is mildly enlarged. No pelvic or inguinal lymphadenopathy, mass or fluid. MUSCULOSKELETAL STRUCTURES: Normal. COMBINED IMPRESSION: 1. Bilateral renal stones. 2. Nonobstructing left renal pelvis stone. 3. No ureteric stone or evidence of ureteric obstruction. Interpreted By: Nirav Vinson MD EL MARTINEZ MD [address] [place] [address], [phone], [facility] 03/18/2023 09:57:32 Ct, Abdomen + Pelvis, W/wo Contrast : [address] [place] [address] Patient Name: LOUANN VILLEGAS Patient : 1955 Patient Ordering Provider: GARETH ROTHMAN EXAM DATE: 07/06/2024 EXAM: CT ABD/PELVIS W/WO CONTRAST CLINICAL INFORMATION: Kidney stone TECHNIQUE: A baseline serum creatinine with eGFR was obtained prior to injection of contrast medium due to the patients risk factors for ALFIE. Calculated eGFR at time of exam was [address] images of the abdomen were obtained before and in the combined nephrographic and excretory phases after a split injection of 100 mL Omnipaque 350 (1 x 100 mL bottle of [facility] [id number]). none was wasted and discarded. No oral contrast or water was administered to the patient. CT IVP images were created on a 3D workstation. COMPARISON: 03/17/[address] ABDOMEN: LOWER THORAX: Lung bases are clear. No obvious cardiac abnormality. URINARY TRACT: Both kidneys are normal in location, size, shape, outline and parenchymal thickness. Bilateral kidney stones are present. There are punctate on the right. On the left there are multiple clusters and there is a tiny punctate stone in the left renal pelvis. 9 mm nonobstructive stone in the distal right ureter. The left ureter is mildly prominent in caliber although no definite stones are present in the mid to distal ureter on the left.. Nephrographic phase shows normal parenchymal enhancement bilaterally without delay. Benign-appearing bilateral renal cysts are present. There is a high density cyst present in the anterior right kidney measuring 12 mm which is stable. Stable 9 mm high density cyst involving the inferior anterior left kidney. Stable 9 mm high density cyst posterior left kidney. Mild prominence of the caliber of the left renal pelvis is noted although this is unchanged. Excretory phase shows adequate opacification of collecting systems and ureters without dilatation or filling defect. Urinary bladder is normal in outline and wall thickness without filling defect or mass. OTHER UPPER ABDOMINAL ORGANS: Liver, gallbladder, spleen, pancreas, and adrenals are normal. BOWEL AND MESENTERY: Stomach, small bowel and colon are normal. No mesenteric lymphadenopathy or peritoneal free fluid. RETROPERITONEUM: Aorta, IVC and their branches are patent and normal. No retroperitoneal lymphadenopathy. ABDOMINAL WALL AND SKELETAL STRUCTURES: Normal. FINDINGS ON CT PELVIS: PELVIC CAVITY: Urinary bladder and rectosigmoid are normal. The prostate is enlarged. No pelvic or inguinal lymphadenopathy, mass or fluid. MUSCULOSKELETAL STRUCTURES: Normal. COMBINED IMPRESSION: 1. Bilateral renal stones with sizable stone in the distal right ureter. Mild prominence of the caliber of the left ureter is noted and there is also mild prominence of left renal pelvis which harbors a punctate stone which is smaller than the stone seen on the prior study 2. There are 3 high density cysts which are stable. Additionally there are benign-appearing cysts bilaterally. 3. Enlarged prostate Interpreted By: Shiv Whitaker MD TH ROTHMAN MD [address] [place] [address], [phone], [facility] 07/22/2024 11:47:16 Problems Name Problem SNOMED Code Status Onset Date Resolution Date Notes Provider Name and Address Organization Details Recorded Time Kidney stone 47701454 Active 017 Murelene Giovanny james, [facility] 08/09/2017 10:27:50 Problem Notes None recorded. Procedures Surgical History Date Name Laterality Status Provider Name and Address Organization Details Recorded Time 4 Kidney Stones completed GARETH ROTHMAN MD [address] [place] [address], [phone], [facility] 07/22/2024 08:56:12 4 Kidney Stones completed GARETH ROTHMAN MD [address] [place] [address], [phone], [facility] 07/22/2024 08:57:14 7 CYSTOSCOPY, WITH URETEROSCOPY, WITH LITHOTRIPSY, WITH INSERTION OF URETERAL STENT (SURG) completed Rosita Dejesus [facility] 06/21/2024 13:55:34 7 CYSTOSCOPY, WITH URETEROSCOPY, WITH LITHOTRIPSY (SURG) completed RACHEL MARTINEZ MD [address] [place] [address], [phone], [facility] 05/17/2017 17:28:05 7 Heart Surgery completed Patricio Felix [facility] 11/12/2016 11:44:05 Imaging Results None recorded. Procedure Notes None recorded. Medical Equipment None Reported. Allergies Allergen ID Allergen Name Allergen Category Reaction Reaction Severity Criticality Documentation Date Start Date Code Code System Note Provider Name and Address Organization Details Recorded Time [id number] Product containin g penicilli n (product) medicatio n Not available Not available Not available 08/09/2017 11121 [id number] DERRICK Baltazar [facility] 7 10:27:33 Medications Name Sig Start Date Stop Date Status Note LastModified by Organization Details LastModified Time atorvastati n 40 mg tablet active Not Available Not Available Not Available metformin 500 mg tablet 10/13 completed Not Available Not Available Not Available atorvastati n 80 mg tablet active Not Available Not Available Not Available doxycycline hyclate 100 mg capsule 10/13 completed Not Available Not Available Not Available clindamycin HCl 300 mg capsule 10/13 completed Not Available Not Available Not Available atorvastati n 10 mg tablet 10/13 completed Not Available Not Available Not Available azithromyci n 250 mg tablet 10/13 completed Not Available Not Available Not Available ofloxacin 0.3 % eye drops 03/17 completed Not Available Not Available Not Available hydrocodone 5 mg-acetamin ophen 325 mg tablet TAKE 1 TABLET BY MOUTH EVERY 4 HOURS NEEDED FOR PAIN. MAX DAILY AMOUNT OF 6 TABLETS. active Not Available Not Available No t Available ondansetron HCl 4 mg tablet active Not Available Not Available Not Available clopidogrel 75 mg tablet active Not Available Not Available Not Available ciprofloxac in 500 mg tablet Take 1 tablet every 12 hours by oral route as directed for 7 days. 01/23 completed Not Available Not Available Not Available aspirin 81 mg tablet,candy yed release active Not Available Not Available Not Available sildenafil 100 mg tablet TAKE 1/2 TO 1 TABLET BY MOUTH DAILY 30 MINUTES BEFORE SEXUAL ACTIVITY NEEDED active Not Available Not Available No t Available carvedilol 3.125 mg tablet active Not Available Not Available Not Available ondansetron 8 mg disintegrat ing tablet Place 1 tablet every 8 hours by transling ual route for 2 days. 10/13 completed Not Available Not Available Not Available oxycodone-a cetaminophe n 5 mg-325 mg tablet Take 1 tablet every 6 hours by oral route. active Not Available Not Available No t Available hydromorpho ne 2 mg tablet Take 1 tablet every 6 hours by oral route as needed for 5 days. active Not Available Not Available No t Available methocarbam ol 750 mg tablet TAKE ONE TABLET BY MOUTH EVERY 6 HOURS NEEDED active Not Available Not Available No t Available famciclovir 500 mg tablet active Not Available Not Available Not Available nifedipine ER 60 mg tablet,exte nded release 24 hr active Not Available Not Available Not Available tamsulosin 0.4 mg capsule Take 1 capsule every day by oral route. active Not Available Not Available No t Available cephalexin 500 mg capsule 10/13 completed Not Available Not Available Not Available metformin 1,000 mg tablet active Not Available Not Available Not Available dexamethaso ne 4 mg tablet active Not Available Not Available Not Available lisinopril 10 mg tablet 03/17 completed Not Available Not Available Not Available promethazin e 25 mg tablet active Not Available Not Available Not Available lisinopril 5 mg tablet 10/13 completed Not Available Not Available Not Available gabapentin 100 mg capsule active Not Available Not Available Not Available levofloxaci n 500 mg tablet Take 1 tablet every 24 hours by oral route for 10 days. 03/17 completed Not Available Not Available Not Available oxycodone-a cetaminophe n 7.5 mg-325 mg tablet Take 1 tablet every 6 hours by oral route. 10/13 completed Not Available Not Available Not Available methylpredn isolone 4 mg tablets in a dose pack use as directed 10/13 completed Not Available Not Available Not Available hydromorpho ne 4 mg tablet active Not Available Not Available Not Available nifedipine ER 60 mg tablet,exte nded release 03/17 completed Not Available Not Available Not Available ondansetron 4 mg disintegrat ing tablet active Not Available Not Available N ot Available diazepam 5 mg tablet active Not Available Not Available No t Available Bactrim DS 800 mg-160 mg tablet Take 1 tablet every 12 hours by oral route. 03/17 completed Not Available Not Available Not Available ezetimibe 10 mg tablet active Not Available Not Available Not Available bupropion HCl XL 150 mg 24 hr tablet, extended release 03/17 completed Not Available Not Available Not Available tadalafil 20 mg tablet TAKE 1/2 TO 1 TABLET BY MOUTH DIRECTED NEEDED active Not Available Not Available No t Available metoprolol tartrate 25 mg tablet active Not Available Not Available No t Available Aleve active Not Available Not Availa ble Not Available ProAir HFA 90 mcg/actuati on aerosol inhaler active Not Available Not Available Not Available diclofenac 1 % topical gel 03/17 completed Not Available Not Available Not Available Durezol 0.05 % eye drops 03/17 completed Not Available Not Available Not Available Jardiance 10 mg tablet active Not Available Not Available Not Available Trulicity 1.5 mg/0.5 mL subcutaneou s pen injector active Not Available Not Available Not Available Trulicity 0.75 mg/0.5 mL subcutaneou s pen injector Inject every week by subcutane ous route. active Not Available Not Available No t Available Trulicity 3 mg/0.5 mL subcutaneou s pen injector active Not Available Not Available Not Available Mounjaro 7.5 mg/0.5 mL subcutaneou s pen injector INJECT 1 SYRINGE SUBCUTANE OUSLY ONCE A WEEK active Not Available Not Available No t Available Mounjaro 5 mg/0.5 mL subcutaneou s pen injector INJECT 5 MG SUBCUTANE OUSLY ONCE A WEEK active Not Available Not Available No t Available Mounjaro 2.5 mg/0.5 mL subcutaneou s pen injector INJECT 2.5 MG PEN INJECTOR SUBCUTANE OUSLY ONCE A WEEK active Not Available Not Available No t Available Vitals Date Recorded Body height Body mass index (BMI) Body weight Provider Name and Address Organization Details Last Updated DateTime 01/24/2024 172.72 cm 27.5 kg/m2 43696.22 g Jazmine Luis Miguel [facility] 01/24/2024 15:32:59 Date Recorded Body height Body mass index (BMI) Body weight Provider Name and Address Organization Details Last Updated DateTime 06/21/2024 172.72 cm 27.4 kg/m2 22639.63 g Rosita Dejesus [facility] 06/21/2024 13:53:56 Date Recorded Body height Body mass index (BMI) Body weight Provider Name and Address Organization Details Last Updated DateTime 10/13/2021 172.72 cm 28.9 kg/m2 43269.55 g Patricio Felix [facility] 10/13/2021 15:24:52 Social History Question Answer Notes LastModified by Organizat ion Details LastModified Time Tobacco Smoking Status Former Smoker Mickie Annford [facility] 01/24/2018 11:33:26 Marital Status omar Informat ion not available 01/24/2018 What Was The Date Of Your Most Recent Tobacco Screening? 10/17/2018 Information n ot available 12/18/2019 Sex: Unknown Functional Status Question Answer Note LastModified by Organizat ion Details LastModified Time What is your level of alcohol consumption? Occasional miguel [email or web address] Information not available 01/24/2018 Are you currently employed? 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 Family History Nothing Reported. Medical History Condition Response Kidney Stones Y Arthritis Y Blood Clot N Heart Conditions Y Bleeding Disorder N Asthma N Blood Thinners Y Heart Attack (VT) Y Diabetes Y Heart Disease Y Hypertension Y Past Encounters Encounter ID Performer Location Encounter Start Date Encounter Closed Date Diagnosis/Indication Diagnosis SNOMED-CT Code Diagnosis ICD10 Code Diagnosis Note [id number] RACHEL MARTINEZ MD [facility] [address] [address] 11/12/2016 11:27:09 11/15/2016 09:36:53 Kidney stone 59103290 N20.0 [id number] MD YARY JIMENEZ [facility] [address] [address] 11/18/2016 16:01:17 11/18/2016 17:01:31 Ureteric stone 59568381 N20.1 [id number] RACHEL [facility]INEZ [facility] [address] [phone] 11/26/2016 10:04:07 11/26/2016 11:48:09 Kidney stone 81328024 N20.0 Benign pro static hyperplasia with outflow obstruction 682094503 N40.1 [id number] RACHEL MARTINEZ MD [facility] [address] [place] [phone] 03/22/2017 10:09:00 03/23/2017 10:01:55 Ureteric stone 07528851 N20.1 Kidney stone 96850865 N2 0.0 [id number] RACHEL MARTINEZ MD [facility] [address] [address] 08/09/2017 09:37:36 08/09/2017 10:45:29 Kidney stone 62826923 N20.0 [id number] RACHEL MARTINEZ MD [facility] [address] [address] [address] 01/24/2018 10:41:10 01/24/2018 16:59:01 Ureteric stone [id number] N20.1 [id number] RACHEL MARTINEZ MD [facility] [address] [address] [address] 02/28/2018 11:27:29 02/28/2018 13:02:05 Kidney stone [id number] N20.0 [id number] CASSY GILMORE MD ORTHOPEDI CS [facility] CLOSED [address] [place] [address] 10/17/2018 07:32:52 10/17/2018 10:55:01 Pain of right wrist [id number] 31100 M25.676 [id number] RACHEL MARTINEZ MD [facility] UROLOGIC [facility]ATE S [address] [address] 10/13/2021 15:02:51 10/13/2021 15:47:52 Benign prostatic hyperplasia with outflow obstruction [id number] N40.1 Conrado hematuria 01858252 5 R31.0 Kidney stone 41781119 N2 0.0 [id number] RACHEL MARTINEZ MD [facility]IC [facility] [address] [address] [facility] [address] [address] 03/17/2023 12:46:00 03/17/2023 15:48:00 Kidney stone [id number] N20.0 [id number] RACHEL MARTINEZ MD [facility] S [address] [place] [address] 01/24/2024 15:03:18 01/24/2024 16:52:43 Kidney stone 74414780 N20.0 [id number] OMAR GAINES APRN UROLOGY SB CLOSED [address] [place] [address] 06/21/2024 13:39:15 06/22/2024 04:12:44 Urolithiasis 60714153 N20.9 [id number] OMAR GAINES APRN UROLOGY SB CLOSED [address] [place] [address] 07/26/2024 12:44:00 07/27/2024 04:54:48 Kidney stone 41996664 N20.0 Health Concerns Section Related Observation LastModified by Organization Detai ls LastModified Time None Recorded Concern Status LastModified by Organization Details LastModified Time None Recorded Advance Directives Directive None Recorded Payers Insurance Date Sequence Insurance Name Policy Number Policy Mao Covered Member ID Mao Member ID Guarantor Name 11/10/2023 1 [place] [id number] Louann Villegas [id number] Louann Villegas 11/10/2023 2 [employer] (MEDICARE SUPPLEMENT) Louann Villegas [id number] Louann Villegas 09/16/2024 1 [place] Louann Villegas [id number] Louann Villegas 11/10/2023 1 [place] [id number] Louann Villegas [id number] Louann Villegas Notes Date Note Type Note Provider Name and Address Organization Details Recorded Time 10/13/2021 text/html he is had a rece nt episode of gross hematuria. This lasted for 24 hours and resolved. He is passing small clots. He has a long history of kidney stones and has passed several recently. We have not seen him in over 3 years. He has had recent back surgery. He is voiding with a good stream and feels like his bladder E RACHEL MARTINEZ MD [address] [place], [address], [facility] 10/13/2021 16:57:03 03/17/2023 text/html The last several weeks he has been having significant left flank pain with radiation of the left side of the abdomen. There is no gross hematuria or dysuria. He is having some nausea but no vomiting. There is no fever. He has a long history of problems with kidney stones RACHEL MARTINEZ MD [address] [place], [address], [facility] 03/17/2023 17:13:06 01/24/2024 text/html He is back follo wing the ESWL on the left ureteral calculus. He is not have any pain. He is voiding without difficulty. KUB shows no stones in the path of the ureter. He does have stones in the left kidney that we will [place] [address] [place] [address], [address], [facility] 01/24/2024 16:38:22 06/21/2024 text/html 69 year old male with recurrent urolithiasis. He is here for follow-up after bilateral ureteroscopic laser lithotripsy 06/11/24. He has a history of type 2 DM, heart disease and arthritis. He is a patient of Dr. Martinez's. He has undergone numerous stone procedures over the years. He was admitted to [facility] 06/11/24 for bilateral ureteral stones and HORTENSIA. A CT scan at [facility] by report showed 7 mm right mid ureteral, 8.5 mm left mid ureteral, 6 mm right renal, and left renal stones. He underwent bilateral ureteroscopic laser lithotripsy and left stent placement by Dr. Rothman. He is a former smoker. He owns a home. OMAR GAINES, BACILIO [address] [place], [address], [facility] 06/21/2024 14:52:26
--- OUTSIDE RECORDS SUMMARY | 2025-04-24 22:18 | XMS_ITS | Encounter Summary ---
Author Organization [facility] Address [address] [place] [address] Care Team Providers Care Will Call Order Clerk Name Role Phone Veda Murguia MD Primary Care Provider + Linda Hartmann OFFBEARER SEWER PIPE Unavailable Unavailable Reason for Visit * Reason Comments Med Refill Encounter Details Date Type Department Care Team (Late st Contact Info) Description 02/26/2023 Refill [facility] Internal Medicine [address] [place] [address] Veda Murguia MD [address] [place] [address] Social History Tobacco Use Types Packs/Day Years Used Date Smoking Tobacco: Former Cigarettes Smokeless Tobacco: Never Alcohol Use Standard Drinks/Week Comments Not Currently 0 (1 standard drink = 0.6 oz pure alcohol) Alcoholic Drinks/day: Former consumption of alcohol PHQ-2 Answer Date Recorded Patient Health Questionnaire-2 Score 0 09/16/2022 Sex and Gender Information Value Date Recorded Sex Assigned at Not on file Legal Sex Male 7:57 PM EDT Gender Identity Not on file Sexual Orientation Not on file documented as of this encounter Miscellaneous Notes * Telephone Encounter - Shivani Littlejohn DO - 03/02/2023 1:46 PM EDT I am doc of the day today: okay to refill PRN medication (for herpes). documented in this encounter Plan of Treatment Not on file documented as of this encounter Visit Diagnoses Not on filedocumented in this encounter Additional Health Concerns Assessment Noted Time A fall risk assessment has been complete d for the patient 09/16/2022 9:39 AM EST documented as of this encounter Care Teams Will Call Order Clerk Relationship Specialty Start Date End Date Veda Murguia MD [address] [place] [address] PCP - General 03/13/21 Linda aHrtmann LPN [employer]UE[employer]ED [place] [address] TCM Nurse 12/28/23 01/26/24 documented as of this encounter
--- OUTSIDE RECORDS SUMMARY | 2025-04-24 22:19 | XMS_ITS | Encounter Summary ---
Author Organization [facility] Address [address] [place] [address] Care Team Providers Care Electromechanical Technologist Name Role Phone Veda Murguia MD Primary Care Provider + Linda Hartmann SUPERVISOR WATER TREATMENT PLANT Unavailable Unavailable Reason for Visit * Reason Comments Med Refill Encounter Details Date Type Department Care Team (Late st Contact Info) Description 01/16/2024 Refill [facility] Internal Medicine [address] [place] [address] Veda Murguia MD [address] [place] [address] Herpes simplex Social History Tobacco Use Types Packs/Day Years Used Date Smoking Tobacco: Former Cigarettes Passive Smoke Exposure: Past Smokeless Tobacco: Never Alcohol Use Standard Drinks/Week Comments Not Currently 0 (1 standard drink = 0.6 oz pure alcohol) Alcoholic Drinks/day: Former consumption of alcohol PHQ-2 Answer Date Recorded Patient Health Questionnaire-2 Score 0 12/22/2023 PHQ-2A Answer Date Recorded Patient Health Questionnaire-2 Score 0 09/20/2023 Sex and Gender Information Value Date Recorded Sex Assigned at Not on file Legal Sex Male 7:57 PM EDT Gender Identity Not on file Sexual Orientation Not on file documented as of this encounter Plan of Treatment Not on file documented as of this encounter Visit Diagnoses Diagnosis Herpes simplex Herpes simplex without mention of complication documented in this encounter Additional Health Concerns Assessment Noted Time A fall risk assessment has been complete d for the patient 12/22/2023 7:45 AM EST A Body Mass Index follow-up plan has been documented for the patient 12/22/2023 4:35 PM EST documented as of this encounter Care Teams Electromechanical Technologist Relationship Specialty Start Date End Date Veda Murguia MD [address] [facility] [address] [place] [address] PCP - General 03/13/21 Linda Hartmann, SUPERVISOR WATER TREATMENT PLANT VALUE[employer] [place] [address] TCM Nurse 12/28/23 01/26/24 documented as of this encounter
--- OUTSIDE RECORDS SUMMARY | 2025-04-24 22:19 | XMS_ITS | Patient Health Record ---
[facility] Organization [facility] Address [address] [place] [id number] Care Team Providers Care Senior Property Accountant Name Role Phone Cassie Pritchard Primary Care Provider Allergies Allergen (clinical drug ingredient) Drug/Non Drug Allergy documented on EMR Reaction Allergy Type Onset Date Status Penicillin Unknown Drug Allergy Active Medications Medication SIG (Take, Route, Frequency, Duration) Notes Start Date End Date Status Ketorolac Tromethamine 10 MG 1 tab(s) orally 4 times a day 10/01/2022 Active Sudafed PE Maximum Strength 10 MG 1 tab(s) orally every 4 hours 09/20/2022 Active Promethazine-DM 6.25-15 MG/5ML 5 mL orally every 6 hours 09/20/2022 Active Cefdinir 300 MG 1 cap(s) orally Two times a day for 7 days 09/22/2022 Active Lisinopril 10 MG 1 tab(s) orally once a day for 30 Not-Taking oxyCODONE-Acetaminophen 7.5-325 MG 1 tab(s) orally every 4 hours, prn 01/07/2022 Active NIFEdipine ER 60 MG 1 tab(s) orally once a day Active Carvedilol 3.125 MG 1 tab(s) orally 2 ti mes a day Active Plavix 75 MG 1 tab(s) orally once a day Active Aspirin Adult Low Dose 81 MG 1 tab(s) orally once a day Active metFORMIN HCl 500 MG 1 tab(s) orally twi ce a day Active Immunizations Vaccine Route Administration Date Status Comme nts Tetanus Tdap-Adacel (over 7yrs) IM Intramuscular 09/22/2016 Administered Problems Problem Type SNOMED Code ICD Code Onset Dates Problem Status W/U Status Risk Notes Problem Hypertension (401.9) Active confirmed Problem 6236896925121 Coronary artery disease involving [place] coronary artery of [place] heart without angina pectoris (I25.10) Active confirmed Problem 84143181 Kidney stones (N20.0) Active confirmed Problem 74680367 Nephrolithiasis (N20.0) Active confirmed Problem 802152814 Type 2 diabetes mellitus without complication, without long-term current use of insulin (E11.9) Active confirmed Problem 189775744 Type 2 diabetes mellitus without complication, unspecified whether intermediate insulin use (E11.9) Active confirmed Plan Of Treatment No Information Insurance Providers Payer Name Payer Address Payer Phone Subscriber Number Group Number Insured Name Patient Relationship to Insured Coverage Start Date Coverage End Date MEDICARE PART B [address] [address] [place] [phone] [id number] Gordy VILLEGAS Self - patient is the insured [employer] [address] [address] [place] [id number] Gordy VILLEGAS Self - patient is the insured Medical (General) History Medical History History ICD Code kidney stones Hypertension type 2 diabetes CAD RI - Sep 2016 Surgical History Surgery Date(Month/Year) multiple kidney stones Cardiac Stent x1 Sep 2016 Cardiac Stent x1 05/11/17 Lipotripsy January 2018 Hospitalization History Reason Date(Month/Year) see above [facility] ER - fall 03/06/18
--- OUTSIDE RECORDS SUMMARY | 2025-04-24 22:19 | XMS_ITS | Clinical Summary ---
Author Organization [facility] Address [address] 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 06/20/20 18 Active sildenafil (Viagra) 100 MG tablet TAKE HALF TABLET BY MOUTH NEEDED 05/10/20 21 Active anastrozole (Arimidex) 1 MG chemo tablet TAKE 1 TABLET BY MOUTH TWICE A WEEK THE 2 DAYS FOLLOWING TESTOSTERONE 07/07/20 22 Active Ascorbic Acid (Vitamin C) 500 MG capsule Take 1 capsule (500 mg) by mouth 2 (two) times a day. Active cholecalciferol (Vitamin D3) 25 MCG (1000 UT) tablet Take 1 tablet (1,000 Units) by mouth 2 (two) times a day. Active Zinc 50 MG capsule Take 1 capsule by mouth 2 (two) times a day. Active Testosterone 200 MG pellet by Implant route 1 (one) time per week. Active NIFEdipine XL (Procardia XL) 60 MG 24 hr tabletIndication s:Essential (primary) hypertension Take 1 tablet (60 mg) by mouth 1 (one) time each day. Do not crush, chew, or split. 90 tablet 3 12/22/19 24 Active carvedilol (Coreg) 3.125 MG tabletIndication s:Coronary artery disease involving [place] coronary artery of [place] heart without angina pectoris Take 1 tablet (3.125 mg) by mouth 2 (two) times a day. 180 tablet 3 12/22/19 24 Active Mounjaro 2.5 MG/0.5ML solution pen-injector solution pen-injector INJECT 2.5 MG SUBCUTANEOUSLY ONCE A WEEK 11/29/19 24 Active atorvastatin (Lipitor) 40 MG tabletIndication s:Coronary artery disease involving [place] coronary artery of [place] heart without angina pectoris Take 1 tablet (40 mg) by mouth 1 (one) time each day. 90 tablet 3 12/22/19 24 Active metFORMIN (Glucophage) 1000 MG tabletIndication s:Type 2 diabetes mellitus with microalbuminuria , without long-term current use of insulin (CMS/HCC) Take 1 tablet (1,000 mg) by mouth 2 (two) times a day with meals. 180 tablet 3 12/22/19 24 Active tamsulosin (Flomax) 0.4 MG 24 hr capsuleIndicatio ns:Nephrolithias is Take 1 capsule (0.4 mg) by mouth 1 (one) time each day if needed (patient states he takes as needed for kidney stone issues ). 30 capsule 11 12/22/19 24 Active famciclovir (Famvir) 500 MG tabletIndication s:Herpes simplex TAKE 3 TABLETS BY MOUTH ONCE NEEDED DIRECTED 21 tablet 3 01/23/20 25 Active Active Problems Problem Noted Date Diagnosed Date Screening for malignant neoplasm of respiratory organ 08/05/2020 Liver lesion 11/23/2019 Pain in wrist 09/28/2018 Ureteral calculus 01/20/2018 Depression 08/18/2017 Abnormal ECG during exercise stress test 017 HORTENSIA (acute kidney injury) 11/11/2016 CAD (coronary artery disease) 11/11/2016 Coronary artery disease invo lving [place] coronary artery of [place] heart without angina pectoris 10/29/2016 Overview (07/22/2021): Cardiac catheterization for inferior STEMI by Dr. Shafer (10/29/2016): GAURANG to RCA. Moderate disease of the first OM of the left circumflex and first diagonal branch of the LAD. Normal LVEF. Diabetes mellitus 10/29/2016 Smoker 10/29/2016 Bilateral sensorineural hearing loss 02/28/2015 Nephrolithiasis 11/21/2014 Aortic stenosis 11/21/2014 Herpes labialis 11/21/2014 Proteinuria 11/21/2014 Nonspecific elevation of lev els of transaminase and lactic acid dehydrogenase (ldh) 09/04/2013 Overview (08/02/2022): Regulatory Update July 2022 ED (erectile dysfunction) 05/31/2013 Hand pain, not arthralgia 03/29/2013 Actinic keratosis 01/16/2013 Retrograde amnesia 01/16/2013 Cardiac murmur 10/12/2012 Hip pain, acute, unspecified laterality 07/14/20 Essential hypertension 07/14/2012 Hyperlipidemia LDL goal <70 07/14/2012 Resolved Problems Problem Noted Date Diagnosed Date Resolved Date Acute bronchitis 12/13/2017 09/22/2021 Myocardial infarction 10/29/20162020 Overview (07/22/2021): Cardiac catheterization for inferior STEMI by Dr. Shafer (10/29/2016): GAURANG to RCA. Moderate disease of the first OM of the left circumflex and first diagonal branch of the LAD. Normal LVEF. DM w/o complication type II 07/14/2012 09/22/2021 Family History Medical History Relation Name Comments Cancer Father Prostate cancer Father Cancer Mother Coronary artery disease Mother Diabetes Mother Glaucoma Mother Heart failure Mother Relation Name Status Comments Father Mother Social History Tobacco Use Types Packs/Day Years [...] on file Sexual Orientation Not on file Last Filed Vital Signs Vital Sign Reading Time Taken Comments Blood Pressure 128/68 12/22/2023 7:37 AM EST Pulse 94 12/22/2023 7:37 AM EST Temperature 36.8 C (98.2 F) 12/22/2023 7:37 AM EST Respiratory Rate 17 12/22/2023 7:37 AM EST Oxygen Saturation - - Inhaled Oxygen Concentration - - Weight 85.3 kg (188 lb 0.8 oz) 12/22/2023 7:37 A M EST Height 172.7 cm (5' 8 ) 12/22/2023 7:37 AM EST Body Mass Index 28.59 12/22/2023 7:37 AM EST Plan of Treatment Health Maintenance Due Date Last Done Comments [facility]-Hepatitis C Screening 1955 [facility]-Medicare Annual Wellness (AWV) 1955 [facility]-Infant/Child/Adol SDOH Screenings 1955 [facility]-PCVID-02 Vaccine (#1) 1960 Diabetes: Dental Exam 1965 [facility]- SDOH Screenings 1973 [facility]-Adult SDOH Screenings 1973 [facility]-DTaP,Tdap,and Td Vaccines (1 - Tdap) 1974 [facility]-Hepatitis A Vaccines (1 of 2 - Risk 2-dose series) 1974 [facility]-Pneumococcal Vaccine: 50+ Years (1 of 2 - PCV) 1974 [facility]-Zoster Vaccines (1 of 2) 1974 CT Colonography 2000 Colonoscopy 2000 FIT-DNA 2000 FIT 2000 FOBT 2000 Sigmoidoscopy 2000 [facility]-Colorectal Cancer Screening 2000 [facility]-RSV Vaccine: 60+ Years or (1 - Risk 60-74 years 1-dose series) 2015 [facility]-Diabetes: Hemoglobin A1C 03/24/2024, 12/22/2023, 09/20/2023, Additional history exists [facility]-Depression Screening 12/22/2024 12/22/2023 [facility]-Influenza Vaccine (Season Ended) 2025 [facility]-Obesity Intervention Completed 024, 09/20/2023, 09/16/2022, Additional history exists HPV Vaccines Aged Out No longer eligi ble based on patient's age to complete this topic [facility]-HIB Vaccines Aged Out No longer e ligible based on patient's age to complete this topic [facility]-IPV Vaccines Aged Out No longer e ligible based on patient's age to complete this topic [facility]-Rotavirus Vaccines Aged Out No lo nger eligible based on patient's age to complete this topic Procedures Procedure Name Priority Date/Time Associated Diagnosis Comments POCT GLYCOSYLATED HEMOGLOBIN (HGB A1C) Routine 12/22/2023 8:46 AM EST Type 2 diabetes mellitus with microalbuminuria, without long-term current use of insulin ([facility]) from Last 3 Months or Most Recently Relevant to Health Maintenance Results * (ABNORMAL) POCT glycosylated hemoglobin (Hb A1C) docked device (12/22/2023 8:46 AM EST) POCT Hemoglobin A1C 10.1 <5.7% Non-Diabe tic [facility] Kit Lot Number [id number] [facility] Kit Expiration Date 03/05/2024 [facility] Blood Venous blood specimen / Unknown 12/22/2023 8:46 AM EST Veda Murguia MD POINT OF CARE TEST ENTER /EDIT ORDERABLES Final Result [facility] [address] [place] [address] from Last 3 Months or Most Recently Relevant to Health Maintenance Insurance MEDICARE MEDICARE [facility] [place] [id number] Care Teams Plywood Factory Worker Relationship Specialty Start Date End Date Veda Murguia MD [address] [phone] PCP - General 03/13/21
--- OUTSIDE RECORDS SUMMARY | 2025-04-24 22:19 | XMS_ITS | Encounter Summary ---
Author Organization [facility] Address [address] [place] [address] Care Team Providers Care Laundry Worker Name Role Phone Veda Murguia MD Primary Care Provider + Linda Hartmann PRINTING SALES REPRESENTATIVE Unavailable Unavailable Reason for Visit * Reason Comments Med Refill Encounter Details Date Type Department Care Team (Late st Contact Info) Description 01/08/2024 Refill [facility] Internal Medicine [address] [place] [address] Veda Murguia MD [address] [place] [address] Herpes simplex Social History Tobacco [...] documented as of this encounter Care Teams Laundry Worker Relationship Specialty Start Date End Date Veda Murguia MD [address] [facility] [address] [place] [phone] PCP - General 03/13/21 Linda Hartmann, PRINTING SALES REPRESENTATIVE VALUE-[place] [address] TCM Nurse 12/28/23 01/26/24 documented as of this encounter
--- NOTE | 2025-04-24 22:28 | CT_ITS ---
PROCEDURE INFORMATION: Exam: CT Abdomen And Pelvis Without Contrast Exam date and time: 04/24/2025 10:54 PM Age: 69 years old Clinical indication: Abdominal pain; Flank; Left; Additional info: L flank pain TECHNIQUE: Imaging protocol: Computed tomography of the abdomen and pelvis without contrast. Radiation optimization: All CT scans at this facility use at least one of these dose optimization techniques: automated exposure control; mA and/or kV adjustment per patient size (includes targeted exams where dose is matched to clinical indication); or iterative reconstruction. COMPARISON: CT ABDOMEN PELVIS WO CON 06/09/2024 9:31 PM FINDINGS: Lungs: Granulomatous calcifications noted. Minor subsegmental atelectasis in the lung bases. Heart: Heart size normal. Coronary arteries: Moderate-severe coronary artery calcification. Esophagus: The visualized distal esophagus is largely contracted without gross abnormality. Liver: Normal contour. No mass lesions. No intrahepatic biliary ductal dilatation. Gallbladder and biliary ducts: Suspect small 5 mm gallstone in the gallbladder lumen at the neck. No gallbladder wall thickening or adjacent stranding to suggest cholecystitis. Nondilated bile ducts. Pancreas: Normal. No inflammatory changes or ductal dilation. Spleen: Normal. No splenomegaly. Adrenal glands: Small bilateral low-density adrenal nodules measuring 2 x 1.1 cm on the right 13 x 11 mm on left are unchanged and consistent with benign adenomas which do not require further assessment. Kidneys and ureters: Moderate-severe left hydronephrosis and proximal hydroureter with a 13 x 8 x 9 mm left mid ureteral stone at the L4 level. Moderate asymmetric left perinephric stranding. There are numerous nonobstructive left renal stones present, largest 17 mm in the lower pole. There are numerous nonobstructive right renal stones present, largest 10 mm. There is mild chronic right perinephric stranding which is stable in appearance. There are numerous bilateral renal cortical cysts present which are grossly stable from 06/09/2020, a few of which so simple features and many of which show complex density consistent with hemorrhagic or proteinaceous cysts. Stomach and bowel: The stomach is unremarkable. The small bowel is nondilated with no gross abnormality. No acute colonic abnormalities. Mild-moderate distal colonic diverticulosis without diverticulitis. Appendix: The appendix is normal in caliber and demonstrates no evidence of appendicitis. Intraperitoneal space: No peritoneal free fluid or air. Vasculature: No acute vascular abnormalities. Moderate calcific atherosclerosis. Lymph nodes: No adenopathy. Urinary bladder: Unremarkable as visualized. Reproductive: Moderately enlarged prostate. Bones/joints: No acute osseous abnormalities. Chronic lower left lateral rib fractures. Prior L4-L5 fusion without gross hardware complication. Severe disc osteoarthritic changes L5-S1 and to a lesser degree L3-L4. Mild thoracolumbar spondylosis. Soft tissues: No acute soft tissue abnormalities. IMPRESSION: 1. Moderate-severe left hydronephrosis and proximal hydroureter with a 13 mm mid left ureteral stone. 2. Numerous additional bilateral nonobstructive renal stones are also present. 3. Additional nonemergent findings detailed above.
--- NOTE | 2025-04-24 22:29 | HMH.EDGENADL ---
Discharge Plan Disposition Patient Disposition: Admitted Prescriptions Prescriptions: No Action aspirin 81 MG tablet,delayed release (DR/EC) 81 mg PO DAILY Patient Comments: carvedilol 3.125 M tablet 3.125 mg PO BID Patient Comments: metformin 1,000 MG tablet 1,000 mg PO BID nifedipine 60 mg tablet extended release 24hr 60 mg PO DAILY sildenafil 100 mg tablet 100 mg PO DAILYP PRN (Reason: Sexual Activity) tamsulosin 0.4 mg capsule 0.4 mg PO HS ezetimibe 10 mg tablet 10 mg PO DAILY Mounjaro 7.5 mg/0.5 mL pen injector 7.5 mg SQ WEEKLY Referrals Follow up/Referrals: Thom Álvarez MD [Primary Care Provider, Internal Medicine] - See instructions Clinical Impressions Clinical Impression: UPJ (ureteropelvic junction) obstruction, Ureterolithiasis, HORTENSIA (acute kidney injury), Pancreatitis Print Language Print Language: Chinese Discharge ED Provider: Joy Brown General Adult HPI General Chief complaint: PAIN Stated complaint: left side pain Time Seen by Provider: 04/24/25 22:12 Mode of Arrival: Ambulatory Source of Information: Patient Description of Symptoms (Recalled from ER Triage Doc. by RN): Patient ambulatory to ED with left flank pain. Patient with hx of kidney stones. States that he passed stone yesterday, but feels increased pain left side that feels like stone obstruction. Patient states that he has had pain since Tuesday. History of Present Illness HPI narrative: This patient is a 69-year-old male with a history of recurrent kidney stones, CAD, hypertension, hyperlipidemia, diabetes, and tobacco use presenting to the emergency department for evaluation with concern for left flank pain radiating to the left groin. Patient notes that he started having pain on Tuesday, and then on Tuesday he believes he passed a small kidney stone. He states that he is continue to have worsening left flank pain radiating to his left groin since then, and now has nausea the pain is so severe. He states that he is try to deal with that at home and pass it, as he usually passes them on his own, but he is miserable. He denies any fevers, chills, changes bowel movements, or other concerns. Related Data Home Medications ?Medication ?Instructions ?Recorded ?Confirmed aspirin 81 mg tablet,delayed 81 mg PO DAILY 01/06/18 06/10/24 release carvedilol 3.125 mg tablet 3.125 mg PO BID Hypertension 01/06/18 06/10/24 metformin 1,000 mg tablet 1,000 mg PO BID 02/27/20 06/10/24 nifedipine 60 mg tablet,extended 60 mg PO DAILY 02/27/20 06/10/24 release 24 hr ezetimibe 10 mg tablet 10 mg PO DAILY 06/10/24 06/10/24 sildenafil 100 mg tablet 100 mg PO DAILYP PRN Sexual 06/10/24 06/10/24 Activity tamsulosin 0.4 mg capsule 0.4 mg PO HS 06/10/24 06/10/24 tirzepatide 7.5 mg/0.5 mL 7.5 mg SQ WEEKLY 06/10/24 06/10/24 subcutaneous pen injector (Mounjaro) Allergies Allergy/AdvReac Type Severity Reaction Status Date / Time Penicillins (PENICILLINS) Allergy Intermediate I-RASH Verified 06/17/21 08:22 [facility] Disclaimer: The information contained in this section may have been updated after the patient was seen, as this information can be updated by other users. 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 current occupational exposures/hazards: No caffeine: Yes Have you lived/traveled outside [place] in past 30 days?: No Contact w/someone who lives/traveled outside [place] past 30 days?: No Exposure to someone with infectious disease in past 14 days?: No Do you have a fever (greater than 100.4 F or 38 C)?: No Have you tested positive for COVID-19?: No Exposed to someone with COVID-19 in past 14 days?: No Do you have a sore throat?: No Do you have a cough?: No Do you have any weakness?: No Do you have any diarrhea?: No Are you experiencing any unusual bleeding?: No Do you have any muscle aches/pain?: No Do you have any abdominal pain?: No Are you experiencing loss of taste or smell?: No Other Medical History Have you received the Flu Vaccine for this season: No Have you received the Pneumonia Vaccine: No ROS Obtained: Yes All systems reviewed & no additional complaints except as documented Physical Exam General General appearance: alert and in no apparent distress Head Head exam: atraumatic and normocephalic Eye Eye exam: Present normal appearance, PERRL and EOMI ENT ENT exam: Present normal exam, normal oropharynx, mucous membranes moist and normal external ear exam Neck Neck exam: Present normal inspection, full ROM and trachea midline; Absent tenderness Chest Chest inspection: Present normal inspection and symmetric chest wall rise; Absent tenderness Respiratory Respiratory exam: Present normal lung sounds bilaterally; Absent respiratory distress, wheezes, stridor or accessory muscle use Cardiovascular Cardiovascular exam: Present regular rate and normal rhythm Abdominal Exam Abdominal exam: Present soft; Absent distention, tenderness or guarding Extremities Exam Extremities exam: Present normal inspection, full ROM and normal capillary refill; Absent tenderness or edema Back Exam Back exam: Present normal inspection and full ROM; Absent tenderness Neurological Exam Neurological exam: Present alert, oriented X3, CN II-XII intact and normal gait; Absent motor sensory deficit Psychiatric Psychiatric exam: Present normal affect and normal mood Skin Skin exam: Present warm and dry Medical Decision Making Medical Records Medical records reviewed: Yes I reviewed the patient's medical records. Screening: Per USPSTF and CDC recommendations, given the prevalence of disease in our region, it is our hospital?s policy to screen for HIV and viral Hepatitis for all patients aged 18 and over and those with ongoing risk factors. Cesar Inquiry Pt receiving controlled substance: No Vital Signs: 04/24/25 22:17 Temperature 98.6 F Temperature Source Oral Pulse Rate [Right] 75 Respiratory Rate 18 Blood Pressure [Right Arm] 179/93 H Blood Pressure Mean [Right Arm] 121 Blood Pressure Source [Right Arm] Automatic Cuff Blood Pressure Position [Right Arm] Supine 02 Sat by Pulse Oximetry 97 Oxygen Delivery Method Room Air Lab Data Lab results reviewed: Yes I reviewed the patient's lab results. Lab Results 04/24/25 22:22: WBC 11.6 H, RBC 5.28, Hgb 17.0, Hct 49.4, MCV 93.6, MCH 32.2 H, MCHC 34.4, RDW 12.7, Plt Count 134 L, MPV 10.2, Neut % (Auto) 85.8 H, Lymph % (Auto) 5.1 L, Barton % (Auto) 8.3, Eos % (Auto) 0.2, Baso % (Auto) 0.2, Neut # (Auto) 10.0 H, Lymph # (Auto) 0.6 L, Barton # (Auto) 1.0, Eos # (Auto) 0.0, Baso # (Auto) 0.0, Sodium 137, Potassium 4.4, Chloride 105, Carbon Dioxide 21 L, Anion Gap 15.4 H, BUN 32 H, Creatinine 1.80 H, Estimated Creat Clear 45, Estimated GFR 38 L, Est GFR ( Amer) 45 L, Glucose 160 H, Calcium 10.5 H, Total Bilirubin 0.9, AST 45, ALT 112 H, Alkaline Phosphatase 112, Total Protein 7.9, Albumin 4.8, Globulin 3.1, Albumin/Globulin Ratio 1.5, Lipase 864 H, HCV Ab GIRISH w/Rflx PCR Qn Negative, HIV Ag/Ab Combo Qual Negative 04/24/25 23:30: Urine Color Yellow, Urine Appearance Clear, Urine pH 6.0, Ur Specific Luckey 1.025, Urine Protein 2+ A, Urine Glucose (UA) Negative, Urine Ketones Trace, Urine Blood 2+ A, Urine Nitrate Negative, Urine Bilirubin Negative, Urine Urobilinogen 0.2, Ur Leukocyte Esterase Negative, Urine RBC 50-100, Urine WBC 10-20, Ur Squamous Epith Cells 3-5, Uric Acid Crystals 1+, Urine Bacteria Trace, Urine Mucus 1+ 04/24/25 22:22 04/24/25 22:22 Orders (Tests/Meds): ED MEDICATIONS Generic Name Dose Route Start Last Admin Trade Name Freq PRN Reason Stop Dose Admin Lactated Ringer's 1,000 mls @ 999 mls/hr 04/24/25 23:47 04/24/25 23:54 Lactated Ringer's 1000 Ml Bag IV 04/25/25 00:47 999 mls/hr .Q1H1M ONE Administration Discontinued Medications Generic Name Dose Route Start Last Admin Trade Name Freq PRN Reason Stop Dose Admin Hydromorphone HCl 1 mg 04/24/25 23:47 04/24/25 23:51 Hydromorphone 2mg/Ml Syringe IV 04/24/25 23:48 1 mg ONCE ONE Administration Lactated Ringer's 1,000 mls @ 999 mls/hr 04/24/25 22:28 04/24/25 22:43 Lactated Ringer's 1000 Ml Bag IV 04/24/25 23:28 999 mls/hr .Q1H1M ONE Administration Ketorolac Tromethamine 15 mg 04/24/25 22:28 04/24/25 22:43 Ketorolac 30mg/Ml Vial IV 04/24/25 22:29 15 mg ONCE ONE Administration Morphine Sulfate 4 mg 04/24/25 22:28 04/24/25 22:42 Morphine 4mg/Ml Syringe IV 04/24/25 22:29 4 mg ONCE ONE Administration Ondansetron HCl 4 mg 04/24/25 22:28 04/24/25 22:43 Ondansetron 4mg/2ml Vial IV 04/24/25 22:29 4 mg ONCE ONE Administration Promethazine HCl 12.5 mg 04/24/25 23:47 04/24/25 23:52 Promethazine Hcl 25mg/Ml 1ml Vial IV 04/24/25 23:48 12.5 mg ONCE ONE Administration Sodium Chloride 25 ml 04/24/25 23:47 04/24/25 23:52 Sodium Chloride 0.9% 25ml Bag IV 04/24/25 23:48 25 ml ONCE ONE Administration ORDERS Category Date Time Status CT abdomen pelvis wo con Stat Cat Scan 04/24/25 22:28 Taken Complete Blood Count Auto Diff Stat Lab 04/24/25 22:22 Completed Comprehensive Metabolic Panel Stat Lab 04/24/25 22:22 Completed HIV Combo Stat Lab 04/24/25 22:22 Completed Hepatitis C Ab Qual. W/ RFX Stat Lab 04/24/25 22:22 Completed Lipase Stat Lab 04/24/25 22:22 Completed UA [Urinalysis and Microscopic] Stat Lab 04/24/25 23:30 Completed Urine Culture Stat Micro 04/24/25 23:30 Received Medical Decision Narrative: In summary, this patient is a 69-year-old man presenting to the Emergency Department for evaluation of left flank pain radiating to his left groin, he fears is another kidney stone. Differential diagnoses considered include but are not limited to urolithiasis, pyelonephritis, colitis, diverticulitis. Ruling out the most morbid conditions drove assessment. It should be noted patient's history includes recurrent kidney stones, hypertension, hyperlipidemia, CAD, diabetes which may or may not be at goal therapy. This complicates all aspects of care by increasing patient's risk for morbidity. I reviewed patient's past medical records and noted prior evaluation in the ED in May 2024 with concern for possible kidney stone, which point he was admitted here to the hospital pending transfer to [place] for further evaluation and management by his urology team. He follows with Dr. Recinos. On exam, the patient is uncomfortable appearing. He is hypertensive but otherwise vitals are reassuring on cardiac telemetry. He is afebrile. Abdominal exam is benign. Workup included CBC, CMP, lipase, urinalysis, CT abdomen pelvis without IV contrast. He was given a bolus of IV fluids as well as IV morphine, Zofran, Toradol for symptomatic improvement. I independently interpreted CT scan prior to the radiologist read and noted very large obstructive proximal left ureteral stone with significant amount of hydronephrosis. Please see their read for final interpretation. Labs were obtained that demonstrated mild leukocytosis at 11.6. He has HORTENSIA with a creatinine of 1.84 up from a baseline of around 1.4. He also has elevated lipase at 864. Urinalysis is slightly contaminated with squamous cells and does have trace bacteria, but it could be from contamination. Is negative for nitrates and leukocyte esterase.. On reassessment, patient continues to have severe intractable pain, so administered IV Phenergan and Dilaudid. I also ordered second bolus of IV fluids. Ultimately, I feel he would benefit from transfer to higher level of care with urology. I called and had an interactive discussion with [facility] at the patient's request given that that is where he follows. I spoke with Dr. Gil with urology who accepted the patient for transfer to [facility]. They will call back with regards to bed status. Patient care was signed out to the oncoming provider, Dr. Dougherty, pending transfer. Critical Care Critical Care Time Critical Care Time: Yes Attestation: On 04/24/25, the high probability of a clinically significant, sudden or life threatening deterioration of the following system(s) required my full and direct attention, intervention and personal management. The time I documented below is in addition to time spent performing reported procedures but includes the following listed in this critical care notation. Total Time Total Critical Care Time: 35
[2025-04-24 22:36] LABS: Basophils % 0.2 % (0.1-2.0); Eosinophils % 0.2 % (0.1-12.0); Hematocrit 49.4 % (42.0-52.0); Immature Granulocytes # 0.05 10^3uL; Immature Granulocytes % 0.4 %; Lymphocytes # 0.6 K/mm3 (0.7-4.5); Lymphocytes % 5.1 % (10-50); Mean Corpuscular HGB Conc 34.4 g/dL (31.8-35.4); Mean Corpuscular Hemoglobin 32.2 pg (27.0-31.2); Mean Corpuscular Volume 93.6 fl (80-94); Mean Platelet Volume 10.2 fl (7.4-10.4); Monocytes % 8.3 % (1.7-9.3); Neutrophils % 85.8 % (37.0-80.0); Nucleated Red Blood Cells # 0 10^3/uL; Nucleated Red Blood Cells % 0 %; Platelet Count 134 K/mm3 (142-424); Red Blood Count 5.28 M/mm3 (4.60-6.20); Red Cell Distribution Width 12.7 % (11.5-17.5); Red Cell Distribution Width-SD 44.1 fL; White Blood Count 11.6 K/mm3 (4.8-10.8)
[2025-04-24 22:41] LABS: Alanine Aminotransferase 112 U/L (12-78); Albumin Level 4.8 g/dl (3.5-5.0); Albumin/Globulin Ratio 1.5 (1.1-1.8); Alkaline Phosphatase 112 U/L (38-126); Anion Gap 15.4 mEq/L (5-15); Aspartate Amino Transferase 45 U/L (17-59); Bilirubin,Total 0.9 mg/dl (0.2-1.3); Blood Urea Nitrogen 32 mg/dl (9-20); Calcium 10.5 mg/dl (8.4-10.2); Carbon Dioxide 21 mmol/L (22.0-30.0); Chloride 105 mmol/L (98-107); Creatinine Clearance Estimated 45 mL/min (50-200); Estimated Glomerular Filt Rate 38 ml/min (>60); GFR (African American) 45 ML/MIN (>60); Globulin 3.1 g/dL (1.3-3.2); Glucose 160 mg/dl (74-100); Potassium 4.4 mmoL/L (3.5-5.1); Sodium 137 mmol/L (136-145); Total Protein,Serum 7.9 g/dl (6.3-8.2)
[2025-04-24] MEDS: MORPHINE 4MG/ML SYRINGE 4 MG IV (22:42)
[2025-04-24] MEDS: KETOROLAC 30MG/ML VIAL 15 MG IV (22:43)
[2025-04-24] MEDS: ONDANSETRON 4MG/2ML VIAL 4 MG IV (22:43)
[2025-04-24] MEDS: LACTATED RINGERS 1000ML 1,000 ML 999 ML IV ×2 (22:43→23:54)
[2025-04-24 22:44] LABS: Lipase 864 U/L (23-300)
--- NOTE | 2025-04-24 22:44 | PC.NURSE ---
Critical lipase of 864 called from Lab. MD mckeon
--- NOTE | 2025-04-24 23:15 | PC.NURSE ---
Spoke with [place] [facility], awaiting a call back from at this time
[2025-04-24 23:34] LABS: HIV Combo NEGATIVE (Negative)
[2025-04-24 23:38] LABS: Microscopic, Urine URINE MICROSCOPIC (MICROSCOPIC)
[2025-04-24 23:40] LABS: Appearance,Urine CLEAR (Clear); Bilirubin,Urine Negative (Negative); Blood, Urine 2+ (Negative); Color,Urine YELLOW (Yellow); Glucose,Urine (UA) Negative (Negative); Ketones,Urine TRACE (Negative); Leukocyte Esterase,Urine Negative (Negative); Nitrate,Urine Negative (Negative); Protein,Urine 2+ (Negative); Specific Gravity, Urine 1.025 (1.005-1.030); Urobilinogen,Urine 0.2 EU/dl (0.2)
[2025-04-24 23:42] LABS: Hepatitis C Ab Qual. W/ RFX NEGATIVE (Negative)
[2025-04-24] MEDS: HYDROMORPHONE 2MG/ML SYRINGE 1 MG IV (23:51)
[2025-04-24] MEDS: PROMETHAZINE HCL 25MG/ML 1ML VIAL 12.5 MG IV (23:52)
[2025-04-24] MEDS: SODIUM CHLORIDE 0.9% 25ML BAG 25 ML IV (23:52)
[2025-04-24 23:56] LABS: Bacteria,Urine Trace /lpf; RBC,Urine 50-100 #/hpf (0-3)
[2025-04-24 23:57] LABS: Mucus,Urine 1+ /lpf; Uric Acid Crystals,Urine 1+ /lpf
[2025-04-25] VITALS: BP 153/71; PULSE 70; O2SAT 96
[2025-04-25 00:30] VITALS: BP 157/84; PULSE 63; O2SAT 97
--- NOTE | 2025-04-25 00:51 | PC.NURSE ---
Spoke with [facility] to get an update on the bed assignment. Lois from [facility] said that they dont have a bed yet but as soon as chanell gets off her break she could give us a room assignment and it wouldnt be much longer.
[2025-04-25 01:00] VITALS: BP 154/73; PULSE 61; O2SAT 96
--- NOTE | 2025-04-25 02:43 | PC.NURSE ---
report to Jaki PHAM at [facility].
[2025-04-25] MEDS: OXYCODONE 5MG IMMEDIATE RELEASE TABLET 5 MG PO (02:57)
[2025-04-25 03:06] VITALS: BP 144/83; PULSE 68; RESP 18; TEMP 36.9; O2SAT 98
== END 2025-04-25 03:08 | disposition short-term general hospital (02) ==
PROVIDERS: Emergency Provider Emergency Medicine; PCP Internal Medicine Adolescent Medicine
DX: N13.0 Hydronephrosis with ureteropelvic junction obstruction (principal); N13.4 Hydroureter; R10.32 Left lower quadrant pain; K85.90 Acute pancreatitis without necrosis or infection, unspecified; N17.9 Acute kidney failure, unspecified
CPT/HCPCS: 74176; 80053; 81001; 83690; 85025; 86803; 87086; 87389; 96361; 96374; 96375; 99291; J1171; J1885; J2270; J2405; J2550; J7120